=== PATIENT | female | born 1950 | race Caucasian/White ===

== ENCOUNTER → 2022-04-19 15:35 | Outpatient (CLI) | payer MEDICARE, OTHER, SELFPAY ==
[2022-04-19 20:48] LABS: COVID19 -Nasal RAPID Negative (Negative)
== END ==
PROVIDERS: Family Provider Family Medicine; PCP Family Medicine; Visit Provider Surgery
DX: Z01.812 Encounter for preprocedural laboratory examination (principal); Z20.822 Contact with and (suspected) exposure to COVID-19
CPT/HCPCS: 87635

== ENCOUNTER → 2022-04-19 15:38 | Outpatient (CLI) | payer MEDICARE, OTHER, SELFPAY ==
--- NOTE | 2022-04-19 15:40 | DI.MRI.S_ITS ---
PROCEDURE: MR HEAD/BRAIN WO/W CON INDICATIONS: staging small cell lung cancer TECHNIQUE: Noncontrast axial T1 spin echo, axial T2 fast spin echo, sagittal and axial FLAIR, coronal T2 fast spin echo, axial gradient echo, axial diffusion and ADC through the brain. After the administration of contrast, axial and coronal T1 spin echo with fat saturation through the brain. COMPARISON: None. FINDINGS: Image quality: Excellent. CSF spaces: Basal cisterns are patent. No extra-axial fluid collections. Ventricles are normal in size and shape. Brain: No midline shift. No intracranial bleeds or masses. No abnormal intracranial enhancement. There is cerebral volume loss for age. There is periventricular white matter chronic small vessel ischemic change. The brainstem appears normal. Diffusion-weighted images demonstrate no acute ischemic insults. No chronic ischemic insults. Normal intravascular flow voids are present. Skull and face: Calvarial marrow is normal in signal. Orbits appear normal. Sinuses: Sinuses and mastoids appear clear. IMPRESSION: No evidence of metastatic disease. No acute intracranial disease process. Mild, diffuse cerebral volume loss. Mild periventricular and subcortical white matter chronic microvascular ischemic change. Dictated by: Yamilet Fagan MD, PhD on 04/19/2022 at 16:37 Approved by: Yamilet Fagan MD, PhD on 04/19/2022 at 16:39
== END ==
PROVIDERS: Family Provider Family Medicine; PCP Nurse Practitioner Family; Referring Provider Internal Medicine Medical Oncology; Visit Provider Internal Medicine Medical Oncology
DX: C34.11 Malignant neoplasm of upper lobe, right bronchus or lung (principal); Z01.812 Encounter for preprocedural laboratory examination; Z20.822 Contact with and (suspected) exposure to COVID-19
CPT/HCPCS: 70553; 87635; C9803; A9579

== ENCOUNTER 2022-04-20 11:48 | Day surgery (SDC) | payer MEDICARE, OTHER, SELFPAY ==
[2022-04-20] VITALS (9 sets, daily range): BP systolic 119–140; BP diastolic 62–76; PULSE 68–80; RESP 12–18; TEMP 36.2–36.6; O2SAT 90–97; BMI 33.5
--- NOTE | 2022-04-20 12:08 | PM.HP.1 ---
History of Present Illness History of Present Illness Date Patient Seen: 04/20/22 Chief complaint: Port A Cath Placement Narrative: 71F with right lung cancer here for port a cath placement. No previous indwelling venous catheter. Currently feeling well. Patient History Medical History Arthritis Elevated coronary artery calcium score HTN (hypertension) Malaise and fatigue Serum calcium elevated Shortness of breath Sleep apnea Smoker Family & Social History Tobacco & Substance use: Smoking Status Current every day smoker Smoking packs per day 0.5 Meds Home Medications and Allergies Home Medications Medication Instructions Recorded Confirmed Type acetaminophen 650 mg 650 mg PO Q12H 04/13/22 04/20/22 History tablet,extended release amlodipine 5 mg tablet 5 mg PO DAILY 04/13/22 04/20/22 History ascorbic acid (vitamin C) 500 mg 500 mg PO DAILY 04/13/22 04/20/22 History tablet (Vitamin C) ibuprofen 300 mg tablet 600 mg PO QID 04/13/22 04/20/22 History levothyroxine 100 mcg tablet 100 mcg PO DAILY 04/13/22 04/20/22 History Allergies Allergy/AdvReac Type Severity Reaction Status Date / Time No Known Drug Allergies Allergy Verified 04/20/22 12:13 Exam Narrative Exam Narrative: Gen-Adult woman alert and oriented Chest-Non labored resp Ext-WWP Assessment & Plan Assessment & Plan narrative: 71F w lung cancer here for port a cath placement. Overview of operation discussed. Operative risks including bleeding, infection, mechanical device failure, pneumothorax. Questions answered she is in agreement with this plan. Time Spent With Patient Critical Care time: I spent a total of [] minutes of critical care time on this patient's care today; this time is exclusive of procedural time.
[2022-04-20] MEDS: LACTATED RINGERS 1,000 ML 100 ML IV (12:31)
[2022-04-20] MEDS: CEFAZOLIN 2 GM/20 ML SYRINGE IV (12:53)
--- NOTE | 2022-04-20 12:57 | SUR.OPER ---
Supine on padded OR bed, head on pillow, arms padded and tucked at sides, legs uncrossed, safety belt at thigh, tape over blanket over lower legs as directed by surgeon.
[2022-04-20] MEDS: BUPIVACAINE 0.25% (PF) VIAL 30 ML INJ (13:01)
[2022-04-20] MEDS: HEPARIN 5,000 UNIT, SODIUM CHLORIDE 0.9% 50 ML IV (13:02)
--- NOTE | 2022-04-20 13:30 | DI.RAD.S_ITS ---
PROCEDURE: XR CHEST 1V INDICATIONS: PORT A CATH INSERTION TECHNIQUE: One view of the chest was acquired. COMPARISON: Outside Film, CT, CT CHEST WITH CONTRAST, 02/05/2022, 13:25. FINDINGS: Surgical changes and devices: Port-A-Cath tip is in the distal right IJ vein near the origin of the SVC Lungs and pleura: Lungs are clear. No pleural effusions or pneumothorax. Mediastinum: Mediastinal contours appear normal. Heart size is normal. Bones and chest wall: No suspicious bony lesions. Overlying soft tissues appear unremarkable. IMPRESSION: Right Port-A-Cath tip is in the distal internal jugular vein near the origin of the SVC Approved by: Cristian Calderón M.D. on 04/20/2022 at 16:55
--- NOTE | 2022-04-20 13:41 | PM.OP.1 ---
Operative Date/Time/Diagnoses Date of procedure: 04/20/22 Time of procedure: 13:42 Pre-op diagnosis: Lung cancer Venous insufficiency Post-op diagnosis: same Procedure & Clinicians Procedure: Port-A-Cath placement Same procedure as scheduled: Yes Indications: Lung cancer venous insufficiency Surgeon: Ronni Dillon Click Yes if Unassisted: Yes Anesthesia Type: General Operative Notes Findings: Tip of the catheter within the SVC Specimen(s): none sent Estimated Blood Loss (mL): 10 Procedure in detail: Patient was brought to the operating room placed supine on table. Bilateral lower extremity compressive devices were applied. General anesthesia was induced and he was intubated with an LMA. She was then prepped and draped in usual sterile fashion. Time-out was performed ensure the correct patient procedure necessary equipment within the operating room. She received 2 g of Ancef prior to incision. Under ultrasound guidance the right internal jugular vein was accessed under direct visualization. The guidewire was then threaded through the needle. Its placement was then confirmed using fluoroscopy. The dilator was then placed over the guidewire. The catheter was then inserted through the sheath. Placement was again confirmed with fluoroscopy. A subcutaneous pocket was made in the right chest wall. The tunneler device was used to move the catheter from the neck to the chest pocket. The port was attached after it was primed with heparined saline. The port was tested to ensure that it flushed easily and had good blood return. The port was then secured to the underlying fascia using interupted 0 Prolene suture. Hemostasis was achieved. The wound was irrigated with sterile saline. The subcutaneous tissues were reapproximated with the 3 0 Vicryl and then skin closed with 4-0 Monocryl. The skin was sealed with Dermabond. Patient tolerated procedure well. The sponge and instrument count at the end operation was correct. Patient emerged from general anesthesia was extubated and taken to the postoperative care unit in stable condition Complications: none Post-operative Condition: stable Disposition: same day surgery
[2022-04-20] MEDS: OXYCODONE/ACETAMINOPHEN 5/325 TABLET 1 TAB PO ×2 (14:07→14:59)
--- NOTE | 2022-04-20 14:34 | SUR.PHASEII ---
waiting for wagon driver salesperson to arrive. Patient awake, not in pain at rest, tolerating PO well. No shortness of breath at this time. Used incentive spirometer in PACU, will send it home with the patient.
== END 2022-04-20 15:01 | disposition home or self-care (01) ==
PROVIDERS: Family Provider Family Medicine; PCP Nurse Practitioner Family; Referring Provider Surgery; Visit Provider Surgery
PROC: (CPT 36561; principal; 2022-04-20 13:00)
DX: C34.91 Malignant neoplasm of unspecified part of right bronchus or lung (principal); I10 Essential (primary) hypertension; E03.9 Hypothyroidism, unspecified; F17.210 Nicotine dependence, cigarettes, uncomplicated
CPT/HCPCS: 36561; 71045; 76000; 82962; C1788; J0690; J1100; J1644; J2704; J3010

== ENCOUNTER → 2022-08-26 12:57 | Outpatient (CLI) | payer MEDICARE, OTHER, SELFPAY ==
--- NOTE | 2022-08-26 | DI.RAD.S_ITS ---
PROCEDURE: XR DEXA AXIAL SKELETON INDICATIONS: Hypercalcemia/Age-related osteoporosis without cur COMPARISON: None. FINDINGS: This blank DEXA report has been sent in error by the PACS system. The correct and complete report will be forthcoming in 1-2 days. Thank you for your patience and understanding. Dictated by: Oneal Kramer M.D. on 09/01/2022 at 15:07 Approved by: Oneal Kramer M.D. on 09/01/2022 at 15:07
== END ==
PROVIDERS: Family Provider Family Medicine; PCP Nurse Practitioner Family; Referring Provider Student in an Organized Health Care Education/Training Program; Visit Provider Student in an Organized Health Care Education/Training Program
DX: E21.3 Hyperparathyroidism, unspecified (principal); Z85.118 Personal history of other malignant neoplasm of bronchus and lung; Z13.820 Encounter for screening for osteoporosis; Z78.0 Asymptomatic menopausal state; Z92.241 Personal history of systemic steroid therapy; Z90.710 Acquired absence of both cervix and uterus
CPT/HCPCS: 77080

== ENCOUNTER 2022-10-01 18:44 | Emergency (ER) | payer MEDICARE, OTHER, SELFPAY ==
[2022-10-01 19:09] VITALS: BP 139/78; PULSE 90; RESP 17; TEMP 36.6; O2SAT 99; BMI 31.1
--- NOTE | 2022-10-01 19:22 | DI.US.S_ITS ---
PROCEDURE: US PERIPH VENOUS UP EXTREM RT INDICATIONS: NECK PAIN; PORT TECHNIQUE: Real-time imaging, as well as color and pulse Doppler interrogation, was performed of the right upper extremity deep veins from the inferior neck to the antecubital fossa. COMPARISON: [facility], CR, XR CHEST 1V, 04/20/2022, 13:36. FINDINGS: There are nonocclusive filling defects along the course of the catheter in the right internal jugular catheter consistent with thrombus. The visualized portions of the subclavian vein, axillary, and brachial veins are free of intraluminal thrombus. Where physically possible, the veins are normally compressible. Color and pulse Doppler demonstrate normal intraluminal flow, with expected phasicity and pulsatility. Additional scanning of the cephalic and basilic veins of the superficial system demonstrate normal compressibility, without thrombus. IMPRESSION: 1. Nonocclusive thrombus demonstrated within the right internal jugular catheter along the course of the Port-A-Cath catheter. Dictated by: Stefan Coates M.D. on 10/01/2022 at 21:25 Approved by: Stefan Coates M.D. on 10/01/2022 at 21:30
[2022-10-01 20:04] LABS: Influenza A - CEPHEID Flu A NEGATIVE (NEGATIVE); Influenza B - CEPHEID Flu B NEGATIVE (NEGATIVE); Respiratory Syncytial Virus Negative (Negative)
[2022-10-01 20:05] LABS: COVID-19 CEPHEID 4-PLEX PCR Negative (Negative)
[2022-10-01 22:41] VITALS: BP 177/88; PULSE 88; RESP 20; O2SAT 93
[2022-10-02 01:10] VITALS: BP 164/89; PULSE 81; RESP 18; O2SAT 94
--- NOTE | 2022-10-02 01:43 | ED.RECABL ---
HPI - Recheck/Abnormal Lab/Rx General Chief Complaint: Recheck/Abnormal Lab/Rx Stated Complaint: incision site problem chem port, blood clots Time Seen by Provider: 10/02/22 01:43 Source: patient Mode of arrival: Ambulatory History of Present Illness HPI narrative: 72-year-old woman with a history of lung cancer no longer getting chemotherapy but still has a port in the right internal jugular. It is flushed with heparin monthly. She notes over the last 2 nights that it has been increasingly tender along her neck with tenderness when she is coughing or swallowing seems to bother her most in the evenings. She describes no fevers no worsening cough or dyspnea. She discuss this with her oncologist who recommended that she come to the emergency department for evaluation for DVT. Related Data Home Medications Medication Instructions Recorded Confirmed acetaminophen 650 mg 650 mg PO Q12H 04/13/22 08/24/22 tablet,extended release amlodipine 5 mg tablet 5 mg PO DAILY 04/13/22 08/24/22 ascorbic acid (vitamin C) 500 mg 500 mg PO DAILY 04/13/22 08/24/22 tablet (Vitamin C) ibuprofen 300 mg tablet 600 mg PO QID 04/13/22 08/24/22 levothyroxine 100 mcg tablet 100 mcg PO DAILY 04/13/22 08/24/22 gabapentin 100 mg capsule 100 mg PO BEDTIME 06/01/22 08/24/22 Previous Rx's Medication Instructions Recorded ondansetron 4 mg disintegrating 4 mg PO Q8H PRN Nausea And 05/03/22 tablet Vomiting #60 tabs lidocaine-prilocaine 2.5 %-2.5 % 1 applic topical USEASDIRECTD PRN 05/05/22 topical cream Pain At Injection Site #30 grams mouthwashes See Rx Instructions .Route 06/01/22 .COMPLEX PRN Mouth Irritation #480 mL oxycodone 5 mg tablet (Roxicodone) 5 mg PO Q8H PRN Pain, Severe #30 06/29/22 tabs oxycodone 5 mg tablet 5 mg PO Q8H PRN Pain, Severe #30 07/27/22 tabs oxycodone 5 mg capsule 5 mg PO Q8H PRN Pain (Scale Score 09/22/22 4-6) #30 caps eliglustat 84 mg capsule 84 mg PO DAILY #84 caps 10/02/22 methylprednisolone 4 mg tablets in 4 mg PO DAILY #21 ea 10/02/22 a dose pack (Medrol (Justus)) oxycodone-acetaminophen 5 mg-325 1 tab PO Q6H PRN pain #20 tabs 10/02/22 mg tablet Allergies Allergy/AdvReac Type Severity Reaction Status Date / Time No Known Drug Allergies Allergy Verified 10/01/22 19:13 Review of Systems Review of Systems Narrative: Remainder of review is unremarkable Patient History Medical History Arthritis Elevated coronary artery calcium score HTN (hypertension) Malaise and fatigue Serum calcium elevated Shortness of breath Sleep apnea Small cell lung cancer Smoker Surgical History H/O carpal tunnel repair History of bunionectomy History of endoscopy Social History household members: family and children Smoking Status: Current every day smoker alcohol intake: current Smoking Status: Current every day smoker alcohol intake frequency: 0-2 drinks per day Substance Use Type: does not use Exam Initial Vital Signs Initial Vital Signs: Vital Signs Temperature 98 F 10/01/22 19:09 Pulse Rate 90 10/01/22 19:09 Respiratory Rate 17 10/01/22 19:09 Blood Pressure 139/78 10/01/22 19:09 Pulse Oximetry 99 10/01/22 19:09 Oxygen Delivery Method 10/01/22 19:09 General: Chronically ill-appearing but in no acute distress. Able to give a complete and coherent history. Well-nourished well-developed HEENT: Moist mucous membranes, normal sclera with reactive pupils, Neck: Tender along the right side of her neck with palpable cord. No redness, no abscess. No specific tenderness over the port access site Respiratory: Speaking in full sentences Abdomen: Soft, nontender, Skin: Warm and dry, no rashes Neurologic: Grossly neurologically intact with no obvious asymmetries or abnormalities Extremities: No trauma, well perfused Psych: Cooperative, appropriate insight and affect Course Orders Ordered: ED Orders 10/01/22 19:15 Covid-19 + FLU A/B + RSV - PCR Stat 10/01/22 19:22 US periph venous up extrem rt Stat Discontinued Medications Apixaban (Apixaban 5 Mg Tablet) 10 mg PO NOW ONE Stop: 10/02/22 02:05 Apixaban (Apixaban 5 Mg Tablet) 10 mg PO NOW ONE Stop: 10/02/22 02:29 Dexamethasone (Dexamethasone 4 Mg Tablet) 8 mg PO NOW ONE Stop: 10/02/22 02:29 Oxycodone/Acetaminophen (Oxycodone/Acetaminophen 5/325 Tablet) 2 tab PO NOW ONE Stop: 10/02/22 02:29 Vital Signs Vital signs: Vital Signs - 8 hr 10/01/22 19:09 10/01/22 22:41 10/02/22 01:10 Temperature 98 F Pulse Rate 90 88 81 Respiratory Rate 17 20 18 Blood Pressure 139/78 177/88 H 164/89 H Pulse Oximetry 99 93 94 Oxygen Delivery Method Room Air Room Air Room Air MDM - Recheck/Abnormal Lab/Rx Lab Data Labs: Lab Results 10/01/22 Range/Units 19:15 SARS-CoV-2 (PCR) Negative (Negative) Influenza A (RT-PCR) Flu a negative (NEGATIVE) Influenza B (RT-PCR) Flu b negative (NEGATIVE) RSV (PCR) Negative (Negative) Imaging Data Ultrasound right neck: Radiologist's Impression: FINDINGS:? There are nonocclusive filling defects along the course of the catheter in the right internal jugular catheter consistent with thrombus.? The visualized portions of the subclavian vein, axillary, and brachial veins are free of intraluminal thrombus.? Where physically possible, the veins are normally compressible.? Color and pulse Doppler demonstrate normal intraluminal flow, with expected phasicity and pulsatility.? Additional scanning of the cephalic and basilic veins of the superficial system demonstrate normal compressibility, without thrombus.? ? IMPRESSION:? ? 1. Nonocclusive thrombus demonstrated within the right internal jugular catheter along the course of the Port-A-Cath catheter. ? ? Dictated by: Stefan Coates M.D. on 10/01/2022 at 21:25 ? ? MDM Narrative Medical decision making narrative: 72-year-old woman with nonocclusive thrombus documented along the same path. Care will be reviewed with Oncology for recommendations. Dr Uribe returned call. He recommends Eliquis 10 mg b.i.d. for a week. He will contact Dr. Stoddard will then continue prescription with 5 mg b.i.d. after that. Will also give her a Medrol Dosepak to help with inflammation around the partial occlusion to see if this helps with pain. She is also given a brief prescription of Percocet, again to help pain. All of these findings are reviewed with her. I told her to expect a call from the oncology office early next week to set up follow-up appointment and discuss further prescription for the Eliquis. At this time she is safe for discharge home Discharge Plan Departure Patient Disposition: Home Clinical Impression: Small cell lung cancer DVT (deep venous thrombosis) Qualifiers: DVT location: upper extremity Chronicity: acute Laterality: right Instructions: DI for Deep Vein Thrombosis Activity Restrictions/Additional Instructions: Thank you for coming in You do have blood clot around your catheter that is partially occluding your internal jugular vein I have spoken with . He is recommended starting Eliquis 10 mg twice a day and continuing this for a week. After that, will continue the prescription likely at 5 mg twice a day. I am giving you a brief prescription of steroid in the form of a Medrol Dosepak to help with inflammation and swelling at the site I am also giving you a short course of Percocet to help with pain as needed. This is a narcotic and will cause constipation. Please make sure you are using stool softeners with it. Please make sure your falling up with the Oncology Clinic next week. Perscriptions have been electonically transmitted to [facility] If you find that you are getting worse or develop any new symptoms, please feel free to return to the emergency department for further evaluation. Prescriptions: New oxycodone-acetaminophen 5-325 mg tablet 1 tab PO Q6H PRN (Reason: pain) Qty: 20 0RF eliglustat 84 mg capsule 84 mg PO DAILY Qty: 84 0RF methylprednisolone [Medrol (Justus)] 4 mg tablets,dose pack 4 mg PO DAILY Qty: 21 0RF No Action amlodipine 5 mg Tablet 5 mg PO DAILY levothyroxine 100 mcg Tablet 100 mcg PO DAILY acetaminophen 650 mg Tablet Extended Release 650 mg PO Q12H ascorbic acid (vitamin C) [Vitamin C] 500 mg Tablet 500 mg PO DAILY ibuprofen 300 mg Tablet 600 mg PO QID ondansetron 4 mg Tablet,Disintegrating 4 mg PO Q8H PRN (Reason: Nausea And Vomiting) Qty: 60 0RF lidocaine-prilocaine 2.5-2.5 % Cream 1 applic topical USEASDIRECTD PRN (Reason: Pain At Injection Site) Qty: 30 1RF Rx Instructions: Apply to skin over port 60-90 minutes hours prior to planned use of port.Cover the cream with a small piece if plastic wrap and leave in place untill port access mouthwashes Kit See Rx Instructions .ROUTE .COMPLEX PRN (Reason: Mouth Irritation) Qty: 480 1RF Rx Instructions: 160mL vicous lidocaine 2% 160mL mylanta 160mL diphenhydramine 12.5mg/5mL 30ml Sig: Swish, gargle, and spit one to two teaspoonfuls for 1 minute. Repeat every six hours as needed. May be swallowed if esophageal involvement. gabapentin 100 mg Capsule 100 mg PO BEDTIME oxycodone [Roxicodone] 5 mg Tablet 5 mg PO Q8H PRN (Reason: Pain, Severe) Qty: 30 0RF Rx Instructions: take one tablet every 8 hours as needed for breakthrough pain oxycodone 5 mg Tablet 5 mg PO Q8H PRN (Reason: Pain, Severe) Qty: 30 0RF Rx Instructions: take one tablet every 8 hours as needed for breakthrough pain oxycodone 5 mg Capsule 5 mg PO Q8H PRN (Reason: Pain (Scale Score 4-6)) Qty: 30 0RF Rx Instructions: take one tablet as needed every 8 hours for pain Referrals: Myah Ny ARNP [Primary Care Provider] -
[2022-10-02] MEDS: OXYCODONE/APAP 5/325 PREPACK 1 BOTTLE MISC (03:07)
[2022-10-02] MEDS: APIXABAN 5 MG TABLET 10 MG PO (03:07)
[2022-10-02] MEDS: OXYCODONE/ACETAMINOPHEN 5/325 TABLET 2 TAB PO (03:08)
[2022-10-02] MEDS: dexAMETHasone 4 MG TABLET 8 MG PO (03:08)
[2022-10-02 03:20] VITALS: BP 150/84; PULSE 81; O2SAT 95
== END 2022-10-02 03:20 | disposition home or self-care (01) ==
PROVIDERS: Emergency Provider Emergency Medicine; Family Provider Family Medicine; PCP Nurse Practitioner Family
DX: I82.621 Acute embolism and thrombosis of deep veins of right upper extremity (principal); C34.90 Malignant neoplasm of unspecified part of unspecified bronchus or lung; Z20.822 Contact with and (suspected) exposure to COVID-19; Z79.899 Other long term (current) drug therapy
CPT/HCPCS: 0241U; 93971; 99283

== ENCOUNTER → 2022-11-03 10:32 | Outpatient (CLI) | payer MEDICARE, OTHER, SELFPAY ==
--- NOTE | 2022-11-03 10:36 | DI.CT.S_ITS ---
PROCEDURE: CT CHEST ABD PEL W CON INDICATIONS: small cell lung cancer monitoring TECHNIQUE: After the administration of oral and intravenous contrast, axial sections acquired from the supraclavicular neck to the pubic symphysis. Coronal and sagittal reformats were performed. For radiation dose reduction, the following was used: automated exposure control, adjustment of mA and/or kV according to patient size. COMPARISON: [facility], CT, CT CHEST WITH CONTRAST, 05/25/2022, 14:48. FINDINGS: Image quality: Excellent. CHEST: Lower Neck: No enlarged lymph nodes. Thyroid: Unremarkable. Axillae: No enlarged lymph nodes. Chest Wall: Unremarkable. Lungs and Airways: Some of the airspace opacities in the upper lungs visualized on the comparison CT dated May 25, 2022 have resolved, and some persist. For example, a spiculated 9 mm nodule within the peripheral aspect of the right upper lung is unchanged (series 5/image 127). Similarly, a 1.2 cm ground-glass nodule in the anterior aspect of the right upper lung is also unchanged. No new suspicious lesions. No new acute airspace opacities. An 8 mm pulmonary nodule within the posterior left upper lobe now measures 6 mm in diameter (series 5/image 78). A 4 mm pulmonary nodule within the superior segment of the left lower lobe is unchanged (series 5/image 114). Pleura: No pneumothorax or pleural effusions. Heart: Heart size is normal. No pericardial effusion. Thoracic Vessels: The aorta and pulmonary arteries demonstrate normal size. Scattered atheromatous calcifications are present within the aortic arch. Mediastinum and Sharon: The previously visualized enhancing right hilar soft tissue mass has markedly decreased in size. The residual tissue measures approximately 0.8 x 1.6 cm in diameter and previously measured approximately 2.9 x 3.4 cm in diameter. No new hilar adenopathy. No new mediastinal adenopathy. Esophagus: No wall thickening. No hiatal hernia. ABDOMEN: Liver: Unremarkable. Gallbladder: Unremarkable. Biliary ducts: Unremarkable. Pancreas: Unremarkable. Spleen: Unremarkable. Adrenal Glands: Unremarkable. Kidneys and Ureters: Unremarkable. Stomach and Bowel: Stomach, small bowel loops, and colon are unremarkable. There are scattered sigmoid diverticula. No evidence for diverticulitis. The appendix is not visualized; however there is no discrete right lower quadrant fluid or fat stranding to suggest acute appendicitis. Peritoneum: No abnormal intraperitoneal fluid. No free air. Ventral Wall: No hernia. Abdominal Nodes: No retroperitoneal or mesenteric adenopathy by size criteria. Vessels: Aorta and inferior vena cava are normal in size. There are scattered atheromatous calcifications throughout the aorta and iliac arteries bilaterally. PELVIS: Pelvic Organs: Unremarkable. Bladder: Unremarkable. Pelvic Nodes: No enlarged lymph nodes. Miscellaneous: No inguinal hernias are seen. Bones: Unremarkable. IMPRESSION: 1. Marked decrease in the size of the right hilar mass when compared with the CT dated May 25, 2022 suggesting response to therapy. 2. Scattered pulmonary radiopacities as above. These findings most likely represent indolent infection given the resolution of some and the persistence of others over time. Pulmonary metastasis cannot be entirely excluded but is considered less likely. 2. No findings to suggest new subdiaphragmatic metastasis. Dictated by: Kaylynn Nelson M.D. on 11/03/2022 at 13:53 Approved by: Kaylynn Nelson M.D. on 11/03/2022 at 14:03
[2022-11-03 10:52] LABS: Add Manual Diff / Slide Review NO; Basophils Absolute Auto 0 /uL (0-100); Basophils Percent Auto 0.8 % (0-2); Eosinophils Absolute Auto 100 /uL (0-450); Eosinophils Percent Auto 2.5 % (2-4); Hematocrit 42.2 % (36-46); Hemoglobin 13.9 g/dL (12.0-16.0); Lymphocytes Absolute Auto 800 /uL (1100-4500); Lymphocytes Percent Auto 14.2 % (25-40); Mean Corpuscular HGB Conc 32.9 % (30-36); Mean Corpuscular Hemoglobin 31.9 PG (26-34); Mean Corpuscular Volume 96.9 fL (80-100); Monocytes Absolute Auto 600 /uL (0-900); Monocytes Percent Auto 11.3 % (3-14); Neutrophils Absolute Auto 3800 /uL (1500-7000); Neutrophils Percent Auto 71.2 % (50-75); Platelet Count 250 X10^3/uL (150-400); Red Blood Cell Count 4.36 X10^6/uL (4.0-5.2); Red Cell Distribution Width 14.5 % (11.6-14.8); White Blood Cell Count 5.4 X10^3/uL (4.5-11.0)
[2022-11-03 11:07] LABS: Alanine Aminotransferase 17 IU/L (<35); Albumin 4.2 g/dL (3.5-5.0); Albumin Globulin Ratio 1.3 (1.0-2.8); Alkaline Phosphatase 64 U/L (38-126); Aspartate Aminotransferase 17 IU/L (14-36); BUN Creatinine Ratio 18.5 (6-22); Bilirubin Total 0.3 mg/dL (0.2-1.3); Blood Urea Nitrogen 12 mg/dL (7-17); Calcium 10.6 mg/dL (8.4-10.2); Carbon Dioxide 30 mmol/L (22-32); Chloride 103 mmol/L (98-107); Estimated Glomerular Filt Rate > 60 mL/min (>60); Globulin 3.2 g/dL (1.7-4.1); Glucose 97 mg/dL (80-110); HEMOLYSIS < 15 (0-50); Potassium 3.9 mmol/L (3.4-5.1); Sodium 140 mmol/L (137-145); Total Protein 7.4 g/dL (6.3-8.2)
== END ==
PROVIDERS: Family Provider Family Medicine; PCP Nurse Practitioner Family; Referring Provider Internal Medicine Medical Oncology; Visit Provider Internal Medicine Medical Oncology
DX: C34.11 Malignant neoplasm of upper lobe, right bronchus or lung (principal); K57.30 Diverticulosis of large intestine without perforation or abscess without bleeding; R91.1 Solitary pulmonary nodule
CPT/HCPCS: 36415; 71260; 74177; 80053; 85025; Q9967

== ENCOUNTER → 2022-11-25 10:50 | Outpatient (CLI) | payer MEDICARE, OTHER, SELFPAY ==
--- NOTE | 2022-11-25 | DI.MRI.S_ITS ---
PROCEDURE: MR LUMBAR SPINE WO CON INDICATIONS: Radiculopathy, lumbar region TECHNIQUE: Noncontrast sagittal T1 spin echo and T2 fast echo, sagittal STIR, and T2 fast spin echo through the lumbar spine. In cases with scoliosis, additional coronal T2 fast spin echo may be performed. COMPARISON: None. FINDINGS: Image quality: Excellent. Alignment and Curvature: Mild degenerative grade 1 anterior spondylolisthesis L3-4 and L4-5 Bone Marrow: Marrow is of normal overall signal. No acute vertebral body compression fractures. Spinal Cord: Conus medullaris terminates at the L1 level. Visualized cord demonstrates normal signal and size. Paraspinous Soft Tissues: No paravertebral masses. T12-L1: Normal appearance. L1-L2: Normal appearance. L2-L3: Disc height is maintained. Circumferential disc bulge and hypertrophic facet joints results in [id number] central stenosis. No foraminal stenosis L3-L4: Disc space narrowing and circumferential disc bulge with hypertrophic facet joints and ligamentum flavum laxity results in severe central stenosis. Moderate bilateral foraminal stenosis L4-L5: Disc space narrowing and circumferential disc bulge with hypertrophic facet joints results in severe central stenosis. Moderate bilateral foraminal stenosis L5-S1: Disc height is maintained. Hypertrophic facet joints present. No central or foraminal stenosis. IMPRESSION: Multilevel degenerative disc disease and arthropathy results in varying degrees of central and foraminal stenosis including severe central stenosis L3-4 and L4-5 Approved by: Cristian Calderón M.D. on 11/25/2022 at 15:05
== END ==
PROVIDERS: Family Provider Family Medicine; PCP Nurse Practitioner Family; Referring Provider Nurse Practitioner Family; Visit Provider Nurse Practitioner Family
DX: M51.16 Intervertebral disc disorders with radiculopathy, lumbar region (principal); M47.26 Other spondylosis with radiculopathy, lumbar region; M48.061 Spinal stenosis, lumbar region without neurogenic claudication; M79.2 Neuralgia and neuritis, unspecified; M43.10 Spondylolisthesis, site unspecified; M17.0 Bilateral primary osteoarthritis of knee
CPT/HCPCS: 72148

== ENCOUNTER → 2022-12-20 12:40 | Outpatient (CLI) | payer MEDICARE, OTHER, SELFPAY ==
--- NOTE | 2022-12-20 12:42 | DI.RAD.S_ITS ---
PROCEDURE: XR LUMBAR SPINE MIN 4V INDICATIONS: LOW BACK PAIN TECHNIQUE: 5 views of the lumbar spine were acquired, including bilateral oblique views. COMPARISON: [facility], MR, MR LUMBAR SPINE WO CON, 11/25/2022, 10:53. FINDINGS: Bones: 5 nonrib-bearing vertebrae are present. Lower lumbar facet arthropathy. 9 mm anterolisthesis of L4 on L5. 3 mm anterolisthesis of L3 on L4. No vertebral body compression fractures. No suspicious bony lesions. Oblique images demonstrate no evidence of pars defects. Soft tissues: Overlying bowel gas pattern is normal. No suspicious soft tissue calcifications. Oblique images: No pars defects. IMPRESSION: Multilevel posterior facet arthropathy, anterolisthesis of L3 on L4 and L4 on L5. No pars defects. Dictated by: Ladarius Valdovinos M.D. on 12/20/2022 at 19:03 Approved by: Ladarius Valdovinos M.D. on 12/20/2022 at 19:05
--- NOTE | 2022-12-20 12:42 | DI.RAD.S_ITS ---
PROCEDURE: XR KNEE RT 3V INDICATIONS: KNEE PAIN TECHNIQUE: 3 views of the knee were acquired. COMPARISON: None. FINDINGS: Bones: No fractures or dislocations. No suspicious bony lesions. Knee arthroplasty is present. Hardware is intact without evidence of hardware fracture or periprosthetic lucency to suggest loosening. Soft tissues: No joint effusion. No suspicious soft tissue calcifications. IMPRESSION: Knee arthroplasty as above. Dictated by: Jenni Jaeger M.D. on 12/20/2022 at 21:11 Approved by: Jenni Jaeger M.D. on 12/20/2022 at 21:11
--- NOTE | 2022-12-20 12:42 | DI.RAD.S_ITS ---
PROCEDURE: XR KNEE LT 3V INDICATIONS: KNEE PAIN TECHNIQUE: 3 views of the knee were acquired. COMPARISON: [facility], CR, XR KNEE RT 3V, 12/20/2022, 12:49. FINDINGS: Bones: No fractures or dislocations. No suspicious bony lesions. Left knee arthroplasty is present. Hardware is intact without evidence of hardware fracture or periprosthetic lucency. Soft tissues: Mild joint effusion. No suspicious soft tissue calcifications. IMPRESSION: Left knee arthroplasty as above. Dictated by: Jenni Jaeger M.D. on 12/20/2022 at 21:10 Approved by: Jenni Jaeger M.D. on 12/20/2022 at 21:10
== END ==
PROVIDERS: Family Provider Family Medicine; PCP Nurse Practitioner Family; Referring Provider Anesthesiology; Visit Provider Anesthesiology
DX: M47.26 Other spondylosis with radiculopathy, lumbar region (principal); M43.16 Spondylolisthesis, lumbar region; M25.462 Effusion, left knee; M25.561 Pain in right knee; M25.562 Pain in left knee; M79.601 Pain in right arm; M79.602 Pain in left arm; R20.2 Paresthesia of skin; G89.29 Other chronic pain; Z96.653 Presence of artificial knee joint, bilateral
CPT/HCPCS: 72110; 73562; 99214

== ENCOUNTER → 2023-01-19 14:35 | Outpatient (CLI) | payer MEDICARE, OTHER, SELFPAY ==
--- NOTE | 2023-01-19 14:37 | DI.RAD.S_ITS ---
PROCEDURE: XR CERVICAL SPINE 4V OR 5V INDICATIONS: NECK PAIN TECHNIQUE: 5 views of the cervical spine acquired. COMPARISON: None. FINDINGS: Degenerative straightening of the usual cervical lordosis. 2 mm anterolisthesis of C3 on C4. 4 mm anterolisthesis of C4 on C5. Vertebral body heights maintained. Oblique views demonstrate moderate to severe diffuse neural foraminal narrowing from C3-C4 through C6-C7 bilaterally. IMPRESSION: Moderate to severe cervical spine degenerative changes. MRI recommended. Dictated by: Oneal Kramer M.D. on 01/19/2023 at 16:37 Approved by: Oneal Kramer M.D. on 01/19/2023 at 16:37
== END ==
PROVIDERS: Family Provider Family Medicine; PCP Nurse Practitioner Family; Referring Provider Anesthesiology; Visit Provider Anesthesiology
DX: M47.812 Spondylosis without myelopathy or radiculopathy, cervical region (principal); M47.816 Spondylosis without myelopathy or radiculopathy, lumbar region; M43.16 Spondylolisthesis, lumbar region; M54.2 Cervicalgia; M25.561 Pain in right knee; M25.562 Pain in left knee; G89.29 Other chronic pain
CPT/HCPCS: 72050; 99214

== ENCOUNTER → 2023-01-23 12:12 | Outpatient (CLI) | payer MEDICARE, OTHER, SELFPAY ==
--- NOTE | 2023-01-23 12:13 | DI.MRI.S_ITS ---
PROCEDURE: MR CERVICAL SPINE WO CON INDICATIONS: Cervical radiculopathy TECHNIQUE: Noncontrast sagittal T1 spin echo and T2 fast spin echo, sagittal STIR, foraminal oblique sagittal T2 fast spin echo, and axial gradient echo or T2 fast spin echo through the cervical spine. COMPARISON: None. FINDINGS: Image quality: Image degraded by moderate patient motion artifact. Alignment and Curvature: There is straightening of cervical lordosis with mild retrolisthesis of C5 on C6. Bone Marrow: Marrow demonstrates normal overall signal. Spinal Cord: Visualized spinal cord has normal size and signal. No cerebellar tonsillar herniation. Paraspinous Soft Tissues: No paravertebral masses. Prevertebral soft tissues are normal in thickness. C2-C3: Moderate bilateral uncovertebral osteoarthrosis. Bilateral facet arthropathy. No significant neural foraminal or spinal canal stenosis. C3-C4: Moderate bilateral uncovertebral osteoarthrosis and bilateral facet arthropathy. There is a broad-based posterior disc osteophyte complex. This causes mild effacement anterior thecal sac. No significant spinal canal stenosis. Moderate bilateral neural foraminal stenosis. C4-C5: Moderate bilateral uncovertebral osteoarthrosis and small broad-based posterior disc osteophyte complex. Minimal spinal canal stenosis. No cord signal abnormalities. Moderate bilateral neural foraminal stenosis. C5-C6: Degenerative endplate changes with mild intervertebral disc space loss. Prominent endplate osteophytes. Moderate bilateral uncovertebral osteoarthrosis and prominent posterior disc osteophyte complex. Findings results in moderate spinal canal stenosis and moderate-severe bilateral neural foraminal stenosis. No cord signal abnormality seen. There is also mild retrolisthesis of C5 on C6. C6-C7: Moderate degenerative endplate changes with disc space loss. Prominent endplate osteophytes. Moderate posterior disc osteophyte complex and bilateral uncovertebral osteoarthrosis as well as bilateral facet arthropathy. Findings result in mild-moderate spinal canal stenosis without associated cord signal abnormalities. Moderate-severe bilateral neural foraminal stenosis. C7-T1: Normal appearance. IMPRESSION: Moderate multilevel, multifactorial cervical spondylosis as detailed above by vertebral body level. Findings are most severe at C5-6. Dictated by: Teofilo Hutchinson M.D. on 01/24/2023 at 13:02 Approved by: Teofilo Hutchinson M.D. on 01/24/2023 at 13:10
== END ==
PROVIDERS: Family Provider Family Medicine; PCP Nurse Practitioner Family; Referring Provider Anesthesiology; Visit Provider Anesthesiology
DX: M47.22 Other spondylosis with radiculopathy, cervical region
CPT/HCPCS: 72141

== ENCOUNTER 2023-02-03 13:31 | Outpatient (CLI) | payer MEDICARE, OTHER, SELFPAY ==
--- NOTE | 2023-02-03 13:33 | DI.RAD.S_ITS ---
PROCEDURE: PAIN L/S FACET INJ/BLK 1ST ASA COMPARISON: [facility], CR, XR LUMBAR SPINE MIN 4V, 12/20/2022, 12:49. INDICATIONS: SPONDYLOSIS FINDINGS: Fluoroscopic spot filming was performed to verify placement of spinal needles on both sides at the L4, L5, and S1 levels, as labeled on the films. Appropriate location of the needle tips was confirmed by injection of iodinated contrast. IMPRESSION: Intraprocedural examination demonstrating appropriate positions of the needles. Dictated by: Taz Aranda M.D. on 02/03/2023 at 14:01 Approved by: Taz Aranda M.D. on 02/03/2023 at 14:01
[2023-02-03 13:35] VITALS: BP 132/71; PULSE 81; RESP 16; TEMP 36.2; O2SAT 96
[2023-02-03 14:00] VITALS: BP 118/74; PULSE 71; RESP 16; O2SAT 94
[2023-02-03 14:05] VITALS: BP 123/78; PULSE 74; RESP 16; O2SAT 93
[2023-02-03] MEDS: IOPAMIDOL 15 ML VIAL 3 ML INJ (14:06)
[2023-02-03] MEDS: BUPIVACAINE 0.5% (PF) 30 ML VIAL 5 ML INJ (14:07)
[2023-02-03 14:10] VITALS: BP 128/81; PULSE 72; RESP 16; O2SAT 94
[2023-02-03 14:15] VITALS: BP 123/73; PULSE 74; RESP 16; O2SAT 93
[2023-02-03 14:25] VITALS: BP 122/86; PULSE 73; RESP 20; O2SAT 94
--- NOTE | 2023-02-03 16:45 | P.PCN_ITS ---
Date/Time/Diagnoses Date of procedure: 02/03/23 Time of procedure: 14:00 Procedure Notes Physician: Chidi Mejia Total Fluoroscopy time (seconds): 18 Total sedation minutes: 0 Procedure in detail & Post-procedure care: Bilateral L3, 4, 5 Lumbar Medial Branch Blocks Indications: Kal is referred by Dr. Ny for treatment of lumbar spondylosis with low back pain. Preoperative diagnosis: Bilateral lumbar spondylosis Postoperative diagnosis: Same Pre-procedure History: Patient demonstrates today moderate to severe non- radicular back pain without neurologic deficit aggravated by hyperextension yes Back pain greater than leg pain? yes Patient today has tenderness over the suspected joint(s) yes History of post-traumatic injury? no Hypertrophic arthropathy yes Back pain associated with suspected motion segment instability, hypermobility or pseudoarthrosis no Pre-testing pain score (VAS): 6/10 Focused Examination: Ax3 Mood and affect are normal Vital Signs: VSS Consent: Following review of allergies and potential side effects/complications, including, but not necessarily limited to, infection, allergic reaction, local tissue breakdown, stroke, temporary or permanent nerve injury, paralysis, and possible , the patient indicated that they understood and agreed to proceed.? An informed consent document was signed by the patient, witnessed by a nurse and placed in the patient's chart.? Additionally, other treatment options including medications and physical therapy were reviewed with the patient. All questions were answered. Site was then marked. Anesthesia: Local Position: Prone Monitoring: NIBP, Pulse oximetry, 3 lead EKG Needle used: 22G 3.5 inch spinal needle Contrast: Isovue 300M Injectate: 0.5% bupivacaine 1 mL per site Procedure: The patient was brought into the procedure room and positioned into the prone position. Skin was prepped with a Chloraprep solution, allowed to air dry, and then draped in sterile fashion.? The right L4-5 and L5-S1 facet joint were visually identified with fluoroscopy. Lidocaine 1% was used to anesthetize the skin over each target destination with a 25ga needle. A 22 ga, 3.5 inch spinal needle was advanced to the location of the medial branch at the junction of the superior articular process and the transverse process using intermittent fluoroscopy in the AP view. Isovue 300M contrast 0.2ml was injected at each level outlining the medial borders for each level and the base of the SAP of the sacrum in the AP and lateral views. There was no evidence of vascular or intrathecal uptake. The above injectate was slowly injected at each target destination. The left L4-5 and L5-S1 facet joints were visually identified with fluoroscopy. Lidocaine 1% was used to anesthetize the skin over each target destination with a 25ga needle. A 22 ga, 3.5 inch spinal needle was advanced to the location of the medial branch at the junction of the superior articular process and the transverse process using intermittent fluoroscopy in the AP view. Isovue 300M contrast 0.2ml was injected at each level outlining the medial borders for each level and the base of the SAP of the sacrum in the AP and lateral views. There was no evidence of vascular or intrathecal uptake. The above injectate was slowly injected at each target destination. At the end of the procedure the needles were withdrawn and Band-Aids were applied for a dressing. Post Procedure: Patient was taken to the recovery and monitored. The patient was provided a Pain Log to continue to record the patient's response to the target- specific procedure prior to the patient's follow-up visit with the referring physician. Patient was stable upon discharge. Detailed post procedure instructions were provided. Patient was asked to call in the event of worsening pain, fever, weakness, numbness or bladder or bowel incontinence. Postoperatively, today patient demonstrates the following changes with hyperextension and with tenderness over the suspected joint(s). Provacative testing using the Leal's facet loading test Right side Left side Directly before the block ?VAS (0-10) = 6/10 VAS (0-10) = 6/10 5 minutes after the block VAS (0-10) = 2/10 VAS (0-10) = 2/10 Percentage relief obtained with this diagnostic block 67 % 67 % Any improved physical functioning directly after the blocks? Increased range of motion Based on the medial branches blocked today, if the patient meets insurance criteria for radiofrequency, the treatment should result in the denervation of the bilateral L4-5 and L5-S1 facet joint nerves. We would expect to denervate a total of 4 facets during the radiofrequency ablation.
== END 2023-02-03 14:37 | disposition home or self-care (01) ==
LOC: RAD 13:33
PROVIDERS: Family Provider Family Medicine; PCP Nurse Practitioner Family; Referring Provider Anesthesiology; Visit Provider Anesthesiology
DX: M47.816 Spondylosis without myelopathy or radiculopathy, lumbar region (principal); M47.817 Spondylosis without myelopathy or radiculopathy, lumbosacral region
CPT/HCPCS: 64493; 64494

== ENCOUNTER 2023-03-03 13:32 | Outpatient (CLI) | payer MEDICARE, OTHER, SELFPAY ==
--- NOTE | 2023-03-03 13:34 | DI.RAD.S_ITS ---
PROCEDURE: PAIN L/S FACET INJ/BLK 1ST ASA COMPARISON: [facility], MR, MR LUMBAR SPINE WO CON, 11/25/2022, 10:53. [facility], CR, XR LUMBAR SPINE MIN 4V, 12/20/2022, 12:49. INDICATIONS: SPONDYLOSIS FINDINGS: 6 intraoperative fluoroscopy images demonstrate needle placement at L3, L4 and L5 bilaterally. IMPRESSION: Fluoroscopy for pain management. Dictated by: Robert Frey M.D. on 03/03/2023 at 16:30 Approved by: Robert Frey M.D. on 03/03/2023 at 16:31
[2023-03-03 13:50] VITALS: BP 121/70; PULSE 72; RESP 18; TEMP 36.6; O2SAT 98
[2023-03-03 14:16] VITALS: BP 131/80; PULSE 71; RESP 19; O2SAT 94
[2023-03-03] MEDS: LIDOCAINE 2% INJ SDV 5ML 5 ML INJ (14:16)
[2023-03-03] MEDS: IOPAMIDOL 15 ML VIAL 3 ML INJ (14:17)
[2023-03-03 14:21] VITALS: BP 148/92; PULSE 77; RESP 23; O2SAT 92
[2023-03-03 14:40] VITALS: BP 162/73; PULSE 79; RESP 18; O2SAT 98
--- NOTE | 2023-03-03 16:51 | P.PCN_ITS ---
Date/Time/Diagnoses Date of procedure: 03/03/23 Time of procedure: 14:00 Procedure Notes Physician: Chidi Mejia Total Fluoroscopy time (seconds): 13 Total sedation minutes: 0 Procedure in detail & Post-procedure care: Bilateral L3, 4, 5 Lumbar Medial Branch Blocks Indications: Kal is presenting for treatment of lumbar spondylosis with low back pain. Preoperative diagnosis: Bilateral lumbar spondylosis Postoperative diagnosis: Same Pre-procedure History: Patient demonstrates today moderate to severe non- radicular back pain without neurologic deficit aggravated by hyperextension yes Back pain greater than leg pain? yes Patient today has tenderness over the suspected joint(s) yes History of post-traumatic injury? F no Hypertrophic arthropathy yes Back pain associated with suspected motion segment instability, hypermobility or pseudoarthrosis no Pre-testing pain score (VAS): 6/10 Focused Examination: Ax3 Mood and affect are normal Vital Signs: VSS ASA: 2 Consent: Following review of allergies and potential side effects/complications, including, but not necessarily limited to, infection, allergic reaction, local tissue breakdown, stroke, temporary or permanent nerve injury, paralysis, and possible , the patient indicated that they understood and agreed to proceed.? An informed consent document was signed by the patient, witnessed by a nurse and placed in the patient's chart.? Additionally, other treatment options including medications and physical therapy were reviewed with the patient. All questions were answered. Site was then marked. Anesthesia: Local Position: Prone Monitoring: NIBP, Pulse oximetry, 3 lead EKG Needle used: 25G 3.5 inch spinal needle Contrast: Isovue 300M Injectate: 2% Lidocaine 1 mL per site Procedure: The patient was brought into the procedure room and positioned into the prone position. Skin was prepped with a Chloraprep solution, allowed to air dry, and then draped in sterile fashion.? The right L4-5 and L5-S1 facet joints were visually identified with fluoroscopy. Lidocaine 1% was used to anesthetize the skin over each target destination with a 25ga needle. A 25 ga, 3.5 inch spinal needle was advanced to the location of the medial branch at the junction of the superior articular process and the transverse process at L3, 4, 5 using intermittent fluoroscopy in the AP view. Isovue 300M contrast 0.2ml was injected at each level outlining the medial borders for each level and the base of the SAP of the sacrum in the AP and lateral views. There was no evidence of vascular or intrathecal uptake. The above injectate was slowly injected at each target destination. The left L4-5 and L5-S1 facet joints were visually identified with fluoroscopy. Lidocaine 1% was used to anesthetize the skin over each target destination with a 25ga needle. A 22 ga, 3.5 inch spinal needle was advanced to the location of the medial branch at the junction of the superior articular process and the transverse process at L3, 4, 5 using intermittent fluoroscopy in the AP view. Isovue 300M contrast 0.2ml was injected at each level outlining the medial borders for each level and the base of the SAP of the sacrum in the AP and lateral views. There was no evidence of vascular or intrathecal uptake. The above injectate was slowly injected at each target destination. At the end of the procedure the needles were withdrawn and Band-Aids were applied for a dressing. At the end of the procedure the needles were withdrawn and Band-Aids were applied for a dressing. Post Procedure: Patient was taken to the recovery and monitored. The patient was provided a Pain Log to continue to record the patient's response to the target- specific procedure prior to the patient's follow-up visit with the referring physician. Patient was stable upon discharge. Detailed post procedure instructions were provided. Patient was asked to call in the event of worsening pain, fever, weakness, numbness or bladder or bowel incontinence. Postoperatively, today patient demonstrates the following changes with hyperextension and with tenderness over the suspected joint(s). Provacative testing using the Leal's facet loading test Right side Left side Directly before the block ?VAS (0-10) = 6/10 VAS (0-10) = 6/10 5 minutes after the block VAS (0-10) = 1/10 VAS (0-10) = 1/10 Percentage relief obtained with this diagnostic block 83 % 83 % Any improved physical functioning directly after the blocks? Range of motion Based on the medial branches blocked today, if the patient meets insurance crite vidhi for radiofrequency, the treatment should result in the denervation of the bilateral L4-5 and L5-S1 facet joint nerves. We would expect to denervate a total of 4 facets during the radiofrequency ablation.
== END 2023-03-03 14:40 | disposition home or self-care (01) ==
PROVIDERS: Family Provider Family Medicine; PCP Nurse Practitioner Family; Referring Provider Anesthesiology; Visit Provider Anesthesiology
DX: M47.816 Spondylosis without myelopathy or radiculopathy, lumbar region (principal)
CPT/HCPCS: 64493; 64494

== ENCOUNTER 2023-03-17 14:32 | Outpatient (CLI) | payer MEDICARE, OTHER, SELFPAY ==
[2023-03-17] VITALS (11 sets, daily range): BP systolic 122–148; BP diastolic 71–88; PULSE 67–79; RESP 17–22; TEMP 36.3; O2SAT 94–98
--- NOTE | 2023-03-17 14:36 | DI.RAD.S_ITS ---
PROCEDURE: PAIN L/S MED/LAT N RFA BILAT INDICATIONS: SPONDYLOSIS COMPARISON: [facility], CR, XR LUMBAR SPINE MIN 4V, 12/20/2022, 12:49. FINDINGS: Fluoroscopic spot filming was performed to verify placement of spinal needles at the L3, L4 and L5 level(s), as labeled on the films. Appropriate location(s) of the needle tip(s) was confirmed by injection of iodinated contrast. IMPRESSION: Fluoroscopy for pain management Dictated by: Robert Frey M.D. on 03/17/2023 at 16:55 Approved by: Robert Frey M.D. on 03/17/2023 at 16:55
[2023-03-17] MEDS: MIDAZOLAM 2 MG/2 ML VIAL IV (15:12)
[2023-03-17] MEDS: BUPIVACAINE 0.5% (PF) 30 ML VIAL 5 ML INJ (15:30)
[2023-03-17] MEDS: DEXAMETHASONE 10 MG/ML VIAL 20 MG INJ (15:31)
[2023-03-17] MEDS: LIDOCAINE 2% INJ MDV 20ML 20 ML INJ (15:31)
--- NOTE | 2023-03-17 16:29 | P.PCN_ITS ---
Date/Time/Diagnoses Date of procedure: 03/17/23 Time of procedure: 15:00 Procedure Notes Physician: Chidi Mejia Total Fluoroscopy time (seconds): 30 Total sedation minutes: 34 Procedure in detail & Post-procedure care: Bilateral L3, 4, 5 Lumbar Medial Branch Radio Frequency Ablation Indications: Kal presents for treatment of lumbar spondylosis with low back pain. Preoperative diagnosis: Bilateral lumbar spondylosis Postoperative diagnosis: Same Pre-procedure History: Patient demonstrates today moderate to severe non-radicular low back pain without neurologic deficit aggravated by hyperextension yes Back pain greater than leg pain? yes Patient today has tenderness over the suspected joint(s) yes History of post-traumatic injury? no Hypertrophic arthropathy yes Back pain associated with suspected motion segment instability, hypermobility or pseudoarthrosis no Focused Examination: Ax3 Mood and affect are normal Vital Signs: VSS ASA: 2 Consent: Following review of allergies and potential side effects/complications, including, but not necessarily limited to, infection, allergic reaction, local tissue breakdown, stroke, temporary or permanent nerve injury, paralysis, and possible , the patient indicated that they understood and agreed to proceed.? An informed consent document was signed by the patient, witnessed by a nurse and placed in the patient's chart.? Additionally, other treatment options including medications and physical therapy were reviewed with the patient. All questions were answered. Site was then marked. Position: Prone Monitoring: NIBP, Pulse oximetry, 3 lead EKG Needle used: 18 guage, 100 mm, 10 mm active tip Anesthesia: Local with IV sedation. After review of previous anesthetic history and IV conscious sedation, the patient was deemed safe to proceed with today's procedure with IV conscious sedation. IV sedation was accomplished with Versed 2 mg administered by the RN after order by Dr. Mejia. Sedation was titrated to patient comfort during the course of the procedure. Patient remained responsive to all verbal commands. Procedure: The patient was brought into the procedure room and positioned into the prone position. Skin was prepped with a Chloraprep solution, allowed to air dry, and then draped in sterile fashion.? The right L4-5 and L5-S1 facet joints were visually identified with fluoroscopy. Lidocaine 1% was used to anesthetize the skin over each target destination with a 25ga needle. An 18 ga, 100 mm RFA needle with a 10 mm active tip was advanced to the location of the medial branch at the junction of the superior articular process and the transverse process at right L3, 4, 5 using intermittent fluoroscopy in the oblique view with caudal tilt. AP and lateral radiographs were taken to confirm proper needle placement. No paresthesias were noted. The stylet was removed and the radiofrequency probe was inserted through the cannula. Each level was individually tested. The impedance was between 300 and 800 ohms at all levels.? Motor stimulation up to 2V elicited multifidus twitching in the lumbar spine. There was no motor stimulation in the lower extremities. After negative aspiration, 1ml of 2% lidocaine was injected at each of the levels and radiofrequency denervation carried out using 80 degrees Celsius for 90 seconds. The needles were then rotated 90 degrees and a second ablation was performed at 80 degrees Celsius for 90 seconds. After ablation, a mixture of 10 mg dexamethasone with 0.25% bup ivacaine 5 mL was injected in equal amounts among the sites (1 mL per site). Next, the left L4-5 and L5-S1 facet joints were visually identified with fluoroscopy. Lidocaine 1% was used to anesthetize the skin over each target destination with a 25ga needle. An 18 ga, 100 mm RFA needle with a 10 mm active tip was advanced to the location of the medial branch at the junction of the superior articular process and the transverse process at left L3, 4, 5 using intermittent fluoroscopy in the oblique view with caudal tilt. AP and lateral radiographs were taken to confirm proper needle placement. No paresthesias were noted. The stylet was removed and the radiofrequency probe was inserted through the cannula. Each level was individually tested. The impedance was between 300 and 800 ohms at all levels.? Motor stimulation up to 2V elicited multifidus twitching in the lumbar spine. There was no motor stimulation in the lower extremities. After negative aspiration, 1ml of 2% lidocaine was injected at each of the levels and radiofrequency denervation carried out using 80 degrees Celsius for 90 seconds. The needles were then rotated 90 degrees and a second ablation was performed at 80 degrees Celsius for 90 seconds. After ablation, a mixture of 10 mg dexamethasone with 0.25% bupivacaine 5 mL was injected in equal amounts among the sites (1 mL per site). At the end of the procedure the needles were withdrawn and Band-Aids were applied for a dressing. This procedure is expected to denervate the bilateral L4-5 and L5-S1 facet joints. Post Procedure: Patient was taken to the recovery and monitored. The patient was provided a Pain Log to continue to record the patient's response to the target- specific procedure prior to the patient's follow-up visit with the referring physician. Patient was stable upon discharge. Detailed post procedure instructions were provided. Patient was asked to call in the event of worsening pain, fever, weakness, numbness or bladder or bowel incontinence. Complications: None
== END 2023-03-17 16:09 | disposition home or self-care (01) ==
LOC: RAD 14:33
PROVIDERS: Family Provider Family Medicine; PCP Nurse Practitioner Family; Referring Provider Anesthesiology; Visit Provider Anesthesiology
DX: M47.816 Spondylosis without myelopathy or radiculopathy, lumbar region (principal)
CPT/HCPCS: 64635; 64636; 99152; 99153; J1100; J2250

== ENCOUNTER → 2023-04-20 13:36 | Outpatient (CLI) | payer MEDICARE, OTHER, SELFPAY ==
[2023-04-20 14:12] LABS: Add Manual Diff / Slide Review NO; Basophils Absolute Auto 0 /uL (0-100); Basophils Percent Auto 0.8 % (0-2); Eosinophils Absolute Auto 100 /uL (0-450); Eosinophils Percent Auto 2.1 % (2-4); Hematocrit 41.7 % (36-46); Lymphocytes Absolute Auto 1000 /uL (1100-4500); Lymphocytes Percent Auto 16.6 % (25-40); Mean Corpuscular HGB Conc 33.5 % (30-36); Mean Corpuscular Hemoglobin 31.8 PG (26-34); Mean Corpuscular Volume 94.9 fL (80-100); Monocytes Absolute Auto 700 /uL (0-900); Monocytes Percent Auto 11.7 % (3-14); Neutrophils Absolute Auto 4100 /uL (1500-7000); Neutrophils Percent Auto 68.8 % (50-75); Platelet Count 198 X10^3/uL (150-400); Red Blood Cell Count 4.39 X10^6/uL (4.0-5.2); Red Cell Distribution Width 15.9 % (11.6-14.8); White Blood Cell Count 5.9 X10^3/uL (4.5-11.0)
[2023-04-20 14:33] LABS: Alanine Aminotransferase 19 IU/L (<35); Albumin Globulin Ratio 1.5 (1.0-2.8); Alkaline Phosphatase 68 U/L (38-126); Aspartate Aminotransferase 19 IU/L (14-36); BUN Creatinine Ratio 19.4 (6-22); Bilirubin Total 0.3 mg/dL (0.2-1.3); Blood Urea Nitrogen 12 mg/dL (7-17); Calcium 10.8 mg/dL (8.4-10.2); Carbon Dioxide 29 mmol/L (22-32); Chloride 106 mmol/L (98-107); Estimated Glomerular Filt Rate > 60 mL/min (>60); Globulin 2.6 g/dL (1.7-4.1); Glucose 98 mg/dL (80-110); HEMOLYSIS < 15 (0-50); Lactate Dehydrogenase 154 U/L (120-246); Phosphorous 3.5 mg/dL (2.8-4.1); Sodium 140 mmol/L (137-145); Total Protein 6.6 g/dL (6.3-8.2)
[2023-04-20 15:31] LABS: Vitamin D 25 Hydroxy (D3) 37.2 ng/mL (30.0-100.0)
[2023-04-22 08:44] LABS: Calcium 10.7 mg/dL (8.7-10.3); Parathyroid Hormone, Intact 83 pg/mL (15-65)
== END ==
PROVIDERS: Internal Medicine Medical Oncology; Family Provider Family Medicine; PCP Nurse Practitioner Family; Referring Provider Student in an Organized Health Care Education/Training Program; Visit Provider Student in an Organized Health Care Education/Training Program
DX: E21.3 Hyperparathyroidism, unspecified (principal); C34.90 Malignant neoplasm of unspecified part of unspecified bronchus or lung
CPT/HCPCS: 36415; 80053; 80069; 82306; 82310; 83615; 83970; 85025

== ENCOUNTER → 2023-04-26 10:16 | Outpatient (CLI) | payer MEDICARE, OTHER, SELFPAY ==
--- NOTE | 2023-04-26 10:17 | DI.CT.S_ITS ---
PROCEDURE: CT CHEST ABD PEL W CON INDICATIONS: small cell lung cancer, monitoring TECHNIQUE: After the administration of oral and intravenous contrast, axial sections acquired from the supraclavicular neck to the pubic symphysis. Coronal and sagittal reformats were performed. For radiation dose reduction, the following was used: automated exposure control, adjustment of mA and/or kV according to patient size. COMPARISON: [facility], CT, CT CHEST ABD PEL W CON, 11/03/2022, 12:23. FINDINGS: Image quality: Good Lungs and pleura: Small nodule in the posterior medial portion of the left upper lobe is stable. Multiple pulmonary nodules most notably in the right upper lobe again seen, variably present on prior studies, for example next to the fissure (5/115) measuring 1 cm. There are surrounding ground-glass opacities. Very subtle ill-defined diffuse ground-glass nodules are present throughout both lungs. Mediastinum, heart, and esophagus: A prominent periesophageal lymph node is seen again next to the distal esophagus. Normal heart size. There are coronary calcifications. No pathologic mediastinal adenopathy by size criteria. The right hilar mass is much smaller compared to May of 2022, measuring about 8-9 mm in short axis (2/29). This is stable compared to October 2022. Chest wall and thyroid: Calcifications/hyperdensities again seen accident thyroid region. 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 No axillary adenopathy. Solid organs: There are numerous new liver lesions, index lesion in the medial portion of the right lobe (2/62) measuring 1.4 cm. Gallbladder is unremarkable. No pathologic dilation of the biliary tree or pancreatic duct. No splenomegaly. Similar nodularity and thickening of the adrenal glands. No hydronephrosis. Vessels and lymph nodes: No abdominal aortic aneurysm or pathologic adenopathy by size criteria. Bowel and peritoneum: No evidence of bowel obstruction. No pathologic ascites or drainable abscess. There are colonic diverticula. Body wall: Unremarkable Pelvis: Reproductive organs are unremarkable on limited CT evaluation. Bladder is unremarkable. Bones: Degenerative changes, without overt osseous lesion. Consider bone scan or PET-CT for increased sensitivity if needed. IMPRESSION: Numerous suspicious new liver lesions. Consider further evaluation with PET-CT or sampling. Multiple small pulmonary nodules, most notably in the right upper lobe, variably present on prior studies, possibly infectious/inflammatory with differential including metastatic disease. Attention on follow-up. Innumerable additional ill-defined ground-glass nodules in both lungs indicating ongoing respiratory bronchiolitis Other stable and incidental findings above. Dictated by: John Lemos M.D. on 04/26/2023 at 15:34 Approved by: John Lemos M.D. on 04/26/2023 at 15:47
== END ==
PROVIDERS: Family Provider Family Medicine; PCP Nurse Practitioner Family; Referring Provider Internal Medicine Medical Oncology; Visit Provider Internal Medicine Medical Oncology
DX: C34.11 Malignant neoplasm of upper lobe, right bronchus or lung (principal); C77.1 Secondary and unspecified malignant neoplasm of intrathoracic lymph nodes; K76.9 Liver disease, unspecified; R91.1 Solitary pulmonary nodule; I25.10 Atherosclerotic heart disease of native coronary artery without angina pectoris
CPT/HCPCS: 71260; 74177; Q9967

== ENCOUNTER → 2023-05-18 10:19 | Outpatient (CLI) | payer MEDICARE, OTHER, SELFPAY ==
[2023-05-18 11:21] LABS: Add Manual Diff / Slide Review NO; Basophils Absolute Auto 0 /uL (0-100); Basophils Percent Auto 0.7 % (0-2); Eosinophils Absolute Auto 200 /uL (0-450); Hematocrit 43.2 % (36-46); Hemoglobin 14.4 g/dL (12.0-16.0); Lymphocytes Absolute Auto 900 /uL (1100-4500); Lymphocytes Percent Auto 14.9 % (25-40); Mean Corpuscular HGB Conc 33.4 % (30-36); Mean Corpuscular Hemoglobin 31.5 PG (26-34); Mean Corpuscular Volume 94.5 fL (80-100); Monocytes Absolute Auto 700 /uL (0-900); Monocytes Percent Auto 11.4 % (3-14); Neutrophils Absolute Auto 4400 /uL (1500-7000); Platelet Count 198 X10^3/uL (150-400); Red Blood Cell Count 4.57 X10^6/uL (4.0-5.2); Red Cell Distribution Width 15.4 % (11.6-14.8); White Blood Cell Count 6.3 X10^3/uL (4.5-11.0)
[2023-05-18 11:46] LABS: Alanine Aminotransferase 24 IU/L (<35); Albumin 3.9 g/dL (3.5-5.0); Albumin Globulin Ratio 1.4 (1.0-2.8); Alkaline Phosphatase 63 U/L (38-126); Aspartate Aminotransferase 22 IU/L (14-36); BUN Creatinine Ratio 27.9 (6-22); Bilirubin Total 0.4 mg/dL (0.2-1.3); Blood Urea Nitrogen 17 mg/dL (7-17); Calcium 10.3 mg/dL (8.4-10.2); Carbon Dioxide 28 mmol/L (22-32); Chloride 106 mmol/L (98-107); Estimated Glomerular Filt Rate > 60 mL/min (>60); Globulin 2.8 g/dL (1.7-4.1); Glucose 95 mg/dL (80-110); HEMOLYSIS < 15 (0-50); Potassium 3.9 mmol/L (3.4-5.1); Sodium 140 mmol/L (137-145); Total Protein 6.7 g/dL (6.3-8.2)
[2023-05-18 11:54] LABS: Lactate Dehydrogenase 160 U/L (120-246)
== END ==
PROVIDERS: Family Provider Family Medicine; PCP Nurse Practitioner Family; Referring Provider Internal Medicine Hematology & Oncology; Visit Provider Internal Medicine Hematology & Oncology
DX: C34.90 Malignant neoplasm of unspecified part of unspecified bronchus or lung (principal)
CPT/HCPCS: 36415; 80053; 83615; 85025

== ENCOUNTER → 2023-05-20 12:28 | Outpatient (CLI) | payer MEDICARE, OTHER, SELFPAY ==
--- NOTE | 2023-05-20 12:29 | DI.MRI.S_ITS ---
PROCEDURE: MR HEAD/BRAIN WO/W CON INDICATIONS: small cell lung cancer, rule out brain mets TECHNIQUE: Noncontrast axial T1 spin echo, axial T2 fast spin echo, sagittal and axial FLAIR, coronal T2 fast spin echo, axial gradient echo, axial diffusion and ADC through the brain. After the administration of contrast, axial and coronal and sagittal 3D VIBE or T1 spin echo with fat saturation through the brain. COMPARISON: Located Within [facility], , MR HEAD/BRAIN WO/W CON, 04/19/2022, 15:46. FINDINGS: Image quality: Excellent. CSF Spaces: Basal cisterns are patent. No extra-axial fluid collections. Ventricles are normal in size and shape. Brain: Moderate atrophy and white matter chronic ischemic change. Diffusion sequence unremarkable. No acute hemorrhage. Multifocal enhancing metastatic lesions are noted particularly in the left cerebellar hemisphere, where nodules are ring-enhancing with evidence of necrotic center. Largest in the left cerebellar hemisphere measuring 2.9 x 2.6 cm. Additional smaller nodules noted in the right cerebellar flocculus, right temporal para hippocampal gyrus, left parietal precuneus, and left occipital cuneus. No midline shift Skull and face: Calvarial marrow is normal in signal. Orbits appear normal. Sinuses: Sinuses and mastoids appear clear. IMPRESSION: Bilateral cerebral and cerebellar metastasis, new from the prior exam. No midline shift Approved by: Cristian Calderón M.D. on 05/20/2023 at 18:40
== END ==
PROVIDERS: Family Provider Family Medicine; PCP Nurse Practitioner Family; Referring Provider Internal Medicine Hematology & Oncology; Visit Provider Internal Medicine Hematology & Oncology
DX: C34.90 Malignant neoplasm of unspecified part of unspecified bronchus or lung (principal); C79.31 Secondary malignant neoplasm of brain; R20.2 Paresthesia of skin
CPT/HCPCS: 70553; A9579

== ENCOUNTER 2023-06-07 11:26 | Day surgery (SDC) | payer MEDICARE, OTHER, SELFPAY ==
[2023-05-26 08:21] VITALS: BMI 31.7
[2023-06-07] VITALS (9 sets, daily range): BP systolic 112–131; BP diastolic 68–81; PULSE 77–84; RESP 12–16; TEMP 36.1–36.3; O2SAT 88–96; BMI 31.7
--- NOTE | 2023-06-07 | DI.RAD.S_ITS ---
PROCEDURE: XR CHEST 1V INDICATIONS: POST OP PORT-A-CATH PLACEMENT TECHNIQUE: One view of the chest was acquired. COMPARISON: [facility], CT, CT CHEST ABD PEL W CON, 04/26/2023, 12:00. [facility], CR, XR CHEST 1V, 04/20/2022, 13:36. FINDINGS: Surgical changes and devices: Left IJ chest port is been placed with tube tip projected over the mid superior vena cava. Lungs and pleura: Diffuse, widespread bilateral interstitial opacities are present similar prior examination. No pleural effusion or pneumothorax. Mediastinum: Mediastinal contours appear normal. Heart size is enlarged. Bones and chest wall: No suspicious bony lesions. Overlying soft tissues appear unremarkable. IMPRESSION: 1. Placement of left IJ chest Port-A-Cath with tip projected over the mid superior vena cava. 2. Widespread bilateral interstitial opacities with mild cardiomegaly suggestive of mild edema/fluid overload. Atypical pneumonia cannot be excluded. Dictated by: Best Jenkins Peg Interpreted: Alonso Reilly MD on 06/07/2023 at 15:00 Transcribed by: RANJANA on 06/07/2023 at 15:02 Approved by: Alonso Reilly M.D. on 06/07/2023 at 21:05
[2023-06-07] MEDS: LACTATED RINGERS 1,000 ML 42 ML IV ×2 (12:14→13:57)
[2023-06-07] MEDS: ALBUTEROL/IPRATROPIUM 3 ML AMPUL INH ×2 (12:14→14:57)
--- NOTE | 2023-06-07 12:30 | P.HP_ITS ---
History of Present Illness History of Present Illness Date Patient Seen: 06/07/23 Time Patient Seen: 12:30 Chief complaint: Port-A-Cath Placement Narrative: A 73-year-old woman with small-cell lung cancer was sent for Port-A-Cath placement by her oncologist Dr. Ortega per his note: Kal Diane is a pleasant 73-year-old smoker woman from [place]. In 2021, she was diagnosed with limited stage small cell lung cancer.? PET-CT on 04/21/2022 showed a cluster of nodules in posterior segment right upper lobe with increased FDG uptake, largest 1.2 cm with SUV 3.5.? There were multiple other small lung nodules bilaterally with low level FDG uptake, likely benign.? There was hypermetabolic right hilar lymph node with SUV 8.5, enlarged mediastinal lymph nodes with abnormal FDG uptake, largest right paratracheal 2.2 cm with SUV 8.7.? She underwent concurrent chemoradiotherapy with 4 cycles of cisplatin/etoposide, ending 07/29/22.? She had a DVT associated with her Port-A-Cath and it was removed. Surveillance CT 04/26/2023 showed numerous new liver lesions, index lesion in medial portion of right hepatic lobe, 1.4 cm.? There were also multiple small pulmonary nodules, most notably in right upper lobe, variably present on prior studies, possibly infectious/inflammatory with differential including metastatic disease. Ms. Diane states that her previous Port-A-Cath was placed on her right side and she could feel a tube running over her clavicle (and had some questions about that) but she feels that she understands the procedure and states that the Port-A-Cath has been out for 6 months and she understands that it is time for replacement and thinks that attempting to place this today on the left side make sense. [facility] Medical History Anxiety Arthritis Atherosclerosis of coronary artery Cervical radiculopathy Cervicalgia Elevated coronary artery calcium score HTN (hypertension) Hyperglycemia Hyperlipidemia Hyperparathyroidism Knee pain Low back pain Lumbar radiculopathy Lumbar spondylosis Lymphadenopathy Malaise and fatigue Nicotine abuse ROHAN (obstructive sleep apnea) Paresthesia and pain of both upper extremities Paresthesia of foot, bilateral Peripheral neuralgia Poor balance Serum calcium elevated Shortness of breath Shoulder pain, bilateral Sleep apnea Small cell lung cancer Smoker Spondylolisthesis Ulnar nerve entrapment Surgical History H/O carpal tunnel repair (~2002) History of appendectomy (1959) History of bunionectomy (~1997) History of endoscopy History of removal of Port-a-Cath (10/28/22) Hx of eye surgery (~2010) Total knee replacement status Social History household members: family and children Smoking Status: Current every day smoker alcohol intake: current Meds Home Medications and Allergies Home Medications Medication Instructions Recorded Confirmed Type acetaminophen 650 mg 650 mg PO Q12H 04/13/22 06/07/23 History tablet,extended release amlodipine 5 mg tablet 5 mg PO DAILY 04/13/22 06/07/23 History ascorbic acid (vitamin C) 500 mg 500 mg PO DAILY 04/13/22 05/30/23 History tablet (Vitamin C) levothyroxine 100 mcg tablet 100 mcg PO DAILY 04/13/22 06/07/23 History ibuprofen 200 mg tablet 400 mg PO Q8H PRN pain 02/14/23 06/07/23 History gabapentin 100 mg capsule 300 mg PO BEDTIME #90 caps 05/16/23 06/07/23 Rx naloxone 4 mg/actuation nasal spray 4 mg intranasal Q3M PRN opioid 05/30/23 05/30/23 Rx overdose #2 ea tramadol 50 mg tablet 50 mg PO BID PRN pain #60 tabs 05/30/23 06/07/23 Rx Allergies Allergy/AdvReac Type Severity Reaction Status Date / Time No Known Drug Allergies Allergy Verified 06/07/23 11:46 Exam Vital Signs (past 8 hours): - 06/07/23 11:51 Temperature 97.3 F L Pulse Rate 77 Respiratory Rate 16 Blood Pressure 130/80 Pulse Oximetry 95 Oxygen Delivery Method Room Air Oxygen Delivery Method Room Air Const General: cooperative, comfortable, ill appearing and other (Barrel chest) HENMT Head: normal to inspection Eyes General: appearance normal, both eyes and all related structures Chest Chest: other (Barrel chested) Resp Effort & Inspection: normal respiratory effort (Some increased work of respiration and has a breathing treatment being admi) and able to speak in complete sentences Extrem Other: Clubbing of the fingernails bilaterally Assessment & Plan Assessment and plan (1) Small cell lung cancer: Status: Chronic Assessment & Plan narrative: Metastatic small-cell lung cancer sent as a referral by Dr. Lorenzana for Port-A-Cath placement. I discussed with her the risks benefits and alternatives of placement of the port. She expressed she understands the benefits and because she is had 1 before and because I described the process in detail she had no questions about what the procedure entailed. I also described for her risks including but not limited to catheter malfunction infection bleeding pneumothorax and damage to blood vessels in very rare cases. She understands these risks and would like to proceed.
[2023-06-07] MEDS: CEFAZOLIN 2 GM/100 ML PREMIX 100 ML IV (12:44)
--- NOTE | 2023-06-07 13:11 | SUR.OPER ---
Supine on padded OR bed, head on pillow, arms padded and tucked at sides, legs uncrossed, safety belt at thigh, tape over blanket over lower legs .
[2023-06-07] MEDS: HEPARIN 5,000 UNIT, SODIUM CHLORIDE 0.9% 50 ML IV (13:16)
[2023-06-07] MEDS: BUPIVACAINE 0.5% W/ EPI (PF) 30 ML VIAL INJ (13:18)
--- NOTE | 2023-06-07 14:29 | P.OP_ITS ---
Operative Date/Time/Diagnoses Date of procedure: 06/07/23 Time of procedure: 14:29 Pre-op diagnosis: Small-cell lung cancer Post-op diagnosis: same Procedure & Clinicians Procedure: Port-A-Cath placement Same procedure as scheduled: Yes Indications: Small-cell lung cancer need for central venous access Surgeon: Jacklyn West Click Yes if Unassisted: Yes Anesthesia Type: General Operative Notes Findings: Left jugular insertion site. Subclavian attempt x2, unable to scoot below clavicle therefore turned to jugular. A kink in the catheter required extra time in dissection of the insertion site with spreading of the tissues and splitting about 1 cm of the sternocleidomastoid muscle to allow a smooth turn in the catheter. At the end of the case the catheter flushed and aspirated well i ts position was confirmed by x-ray. Specimen(s): none sent Procedure in detail: Patient was taken to the operating room and placed supine on the operating room table bilateral SCDs were placed a time-out was performed general endotracheal anesthesia was induced. A shoulder roll was placed. The chest and neck were prepped and draped sterile fashion. Preoperative antibiotics were administered. Next the ultrasound was draped and used sterilely on the field to identify the subclavian vein. Attempt to place the introducer needle into the subclavian vein under direct ultrasound-guided visualization was made. Attempts x2 failed to cannulate the vein due to difficulty with the clavicle and tight anatomy. Rather than continue attempts in this location attention was turned to the left jugular vein. Ultrasound guidance was used to cannulate the vein easily on the 1st attempt. A guidewire was placed through the introducer needle and its position was confirmed with an x-ray. Next an 11 blade scalpel was used to open the skin and the dilator and tear-away catheter was placed. Next an incision was made over the left chest and a pocket created using blunt and hydrodissection with local anesthesia. Finally the catheter was positioned and checked with an x-ray and cut to 23 cm. This was then placed on the tunneler and tunneled over the clavicle and through the incision made in the neck. The button portion of the catheter was secured to the catheter in the pocket wound. The catheter and the button were flushed. The catheter was then placed into the tear-away catheter sheath and the sheath was removed. An x-ray was obtained and the tip of the catheter was in the superior vena cava. At this point I tried to aspirate and flush the catheter and was unable to do so. Another x-ray obtained of the neck showed a kink that was sharp at entry point of the catheter into the sternocleidomastoid muscle. I attempted to manipulate the catheter down to no avail and eventually needed to open the incision on the neck slightly larger. 1.5 cm incision in the neck suffice in order to use a hemostat to loosen and dissect the tissues surrounding the catheter's entry point through the sternocleidomastoid. This allowed me to manipulate the catheter further down and take out the kink making the transition around the clavicle and down into the jugular vein a smoother curve. I did need to make a small incision in the sternocleidomastoid for which I used electrocautery. After this dissection and repositioning the catheter aspirated and flushed easily. A final x-ray confirmed the kink had been smooth out and the catheter tip was in the correct location. I did place 3-0 Vicryl suture through the incision that was made in the sternocleidomastoid as well as 2 subcutaneous 3-0 Vicryl sutures to close the space in the neck. I checked to be certain that the catheter still flushed and aspirated after these closure sutures were placed. I then placed some 3-0 Vicryl sutures in the subcutaneous tissue closing the pocket incision. Just prior to that I placed a 2-0 Prolene suture in an interrupted fashion in the 2 medial and lateral corners of the button to secure it in its location to the chest wall. I did not place a 3rd deeper suture in the inferior corner of the button. The skin was then closed with running 4-0 Monocryl and dressed with Steri-Strips. A pressure dressing was placed over the neck wound. Otherwise the patient tolerated the procedure well and went in good condition to the p ostoperative care unit and a postoperative chest x-ray was obtained. I personally reviewed the films and the radiologist's read is pending but there is no large pneumothorax present. The catheter is in a good location.
--- NOTE | 2023-06-07 15:32 | SUR.PHASEII ---
Assume care. Patient denied pain. Continuous pulse ox in place. O2 sat 88-92%RA. Deep breaths, cough encouraged. Call light within reach.
--- NOTE | 2023-06-07 16:16 | SUR.PHASEII ---
IS provided, verbal instructions given. Patient able to reach 1100 mmHG. Encouraged IS use hourly. Patient dressed independently. O2 sat 93-94% RA.
--- NOTE | 2023-06-07 16:20 | SUR.PHASEII ---
Verified with Dr. Hernandes that patient may remove her dressings tomorrow. Patient notified.
== END 2023-06-07 16:09 | disposition home or self-care (01) ==
PROVIDERS: Family Provider Family Medicine; PCP Nurse Practitioner Family; Referring Provider Surgery; Visit Provider Surgery
PROC: (CPT 36561; principal; 2023-06-07 12:30)
DX: C34.90 Malignant neoplasm of unspecified part of unspecified bronchus or lung (principal)
CPT/HCPCS: 36561; 71045; 76000; C1788; J0690; J1100; J1644; J2405; J2704; J3010

== ENCOUNTER 2023-08-08 13:21 | Emergency (ER) | payer MEDICARE, OTHER, SELFPAY ==
[2023-08-08] VITALS (17 sets, daily range): BP systolic 106–136; BP diastolic 63–75; PULSE 84–94; RESP 18–29; TEMP 36.8–37; O2SAT 92–95; BMI 31.1
--- NOTE | 2023-08-08 14:09 | DI.RAD.S_ITS ---
PROCEDURE: XR CHEST 1V INDICATIONS: Eval for pneumonia TECHNIQUE: One view of the chest was acquired. COMPARISON: [facility], CR, XR CHEST 1V, 06/07/2023, 14:36. FINDINGS: Surgical changes and devices: Left chest wall Port-A-Cath tip is in SVC. Lungs and pleura: Ill-defined increased opacity in left infrahilar region is seen. Right lung is clear. No pleural effusions or pneumothorax. Mediastinum: Mediastinal contours appear normal. Heart size is normal. Bones and chest wall: No suspicious bony lesions. Overlying soft tissues appear unremarkable. IMPRESSION: Finding is concerning for small left infrahilar infiltrate . Clinical correlation and follow-up is recommended. Dictated by: Reese Alvarado M.D. on 08/08/2023 at 15:24 Approved by: Reese Alvarado M.D. on 08/08/2023 at 15:24
--- NOTE | 2023-08-08 14:17 | ED.GENADULT ---
HPI - General Adult General Chief complaint: Fever Stated complaint: chemo last week/temp 101 Time Seen by Provider: 08/08/23 14:09 Source: patient and family Mode of arrival: Ambulatory Limitations: altered mental status History of Present Illness HPI narrative: Patient is a 73-year-old female. Does have lung cancer. Metastasis to the brain. Is normally alert oriented per family was at bedside. Chemotherapy was last Tuesday and Tuesday. Next round of chemotherapy will be a week from today. This morning patient's daughter states that she noticed the patient was very hot when she woke her up this morning. Took a temperature and was 101. No antipyretics were administered. Family also states she is more confused this morning. Patient does seem to be somewhat confused about answering questions. Is very slow to answer questions which this is new per family at bedside. Patient states she is in pain but can not specifically tell us where she is having discomfort. Has not been vomiting. Related Data Home Medications Medication Instructions Recorded Confirmed acetaminophen 650 mg 650 mg PO Q12H 04/13/22 07/05/23 tablet,extended release amlodipine 5 mg tablet 5 mg PO DAILY 04/13/22 07/05/23 levothyroxine 100 mcg tablet 100 mcg PO DAILY 04/13/22 07/05/23 ibuprofen 200 mg tablet 400 mg PO Q8H PRN pain 02/14/23 07/05/23 gabapentin 100 mg capsule 100 mg PO BEDTIME 07/05/23 07/05/23 Previous Rx's Medication Instructions Recorded naloxone 4 mg/actuation nasal spray 4 mg intranasal Q3M PRN opioid 05/30/23 overdose #2 ea oxycodone 5 mg tablet 5 mg PO Q6H PRN pain #7 tabs 06/07/23 dexamethasone 2 mg tablet 4 mg PO BID #55 tabs 06/08/23 tramadol 50 mg tablet 50 mg PO BID PRN pain #60 tabs 06/13/23 levofloxacin 750 mg tablet 750 mg PO DAILY 4 days #4 tabs 08/08/23 Allergies Allergy/AdvReac Type Severity Reaction Status Date / Time No Known Drug Allergies Allergy Verified 07/05/23 13:56 Review of Systems Review of Systems Narrative: Provided by patient and family ROS Unobtainable: All systems reviewed & are unremarkable except as noted in HPI and below Patient History Medical History Anxiety Arthritis Atherosclerosis of coronary artery Cervical radiculopathy Cervicalgia Elevated coronary artery calcium score HTN (hypertension) Hyperglycemia Hyperlipidemia Hyperparathyroidism Knee pain Low back pain Lumbar radiculopathy Lumbar spondylosis Lymphadenopathy Malaise and fatigue Nicotine abuse ROHAN (obstructive sleep apnea) Paresthesia and pain of both upper extremities Paresthesia of foot, bilateral Peripheral neuralgia Poor balance Serum calcium elevated Shortness of breath Shoulder pain, bilateral Sleep apnea Small cell lung cancer Smoker Spondylolisthesis Ulnar nerve entrapment Surgical History H/O carpal tunnel repair (~2002) History of appendectomy (1959) History of bunionectomy (~1997) History of endoscopy History of removal of Port-a-Cath (10/28/22) Hx of eye surgery (~2010) Total knee replacement status Social History household members: family and children Smoking Status: Current every day smoker alcohol intake: current Smoking Status: Current every day smoker alcohol intake frequency: 0-2 drinks per day Substance Use Type: does not use Exam Initial Vital Signs Initial Vital Signs: Vital Signs Pulse Rate 93 H 08/08/23 13:54 Respiratory Rate 21 08/08/23 13:54 Pulse Oximetry 93 08/08/23 13:54 HENMT Head: normal to inspection and normocephalic Resp Effort & Inspection: normal respiratory effort Auscultation: clear to auscultation bilaterally Cardio Rate: regular rate Rhythm: regular rhythm GI Inspection: normal to inspection and non-distended Skin General: no rashes or lesions noted Neuro General: patient alert, patient awake and moves all extremities Other: Oriented to person and place and year. Does seem to have some difficulty specifically answering questions. Extrem General: normal to inspection and capillary refill normal Course Orders Ordered: ED Orders 08/08/23 14:09 XR chest 1V Stat 08/08/23 14:15 Blood Culture Stat Complete Blood Count AUTO DIFF Stat Comprehensive Metabolic Panel Stat Lactate (Lactic Acid) Stat Lipase Stat Procalcitonin Stat 08/08/23 14:18 CT head/brain wo con Stat 08/08/23 16:36 Urinalysis and Microscopic Stat Urine Culture Stat Discontinued Medications Sodium Chloride (Normal Saline 0.9%) 1,000 mls @ 1,000 mls/hr IV BOLUS ONE Stop: 08/08/23 16:50 Last Admin: 08/08/23 16:03 Dose: 1,000 mls/hr Documented By: ST Levofloxacin (Levofloxacin 250 Mg Tablet) 750 mg PO NOW ONE Stop: 08/08/23 15:53 Last Admin: 08/08/23 16:03 Dose: 750 mg Documented By: Vital Signs Vital signs: Vital Signs - 8 hr 08/08/23 14:26 08/08/23 13:54 08/08/23 13:55 Temperature 98.6 F Pulse Rate 89 93 H 93 H Respiratory Rate 22 21 21 Blood Pressure 106/64 Pulse Oximetry 94 93 93 Oxygen Delivery Method Room Air 08/08/23 13:55 08/08/23 14:00 08/08/23 14:00 Temperature Pulse Rate 94 H Respiratory Rate 19 Blood Pressure 116/69 106/64 Pulse Oximetry 94 Oxygen Delivery Method 08/08/23 14:30 08/08/23 14:32 08/08/23 14:32 Temperature Pulse Rate 90 88 Respiratory Rate 29 H 19 Blood Pressure 120/75 Pulse Oximetry 92 92 Oxygen Delivery Method 08/08/23 15:00 08/08/23 15:14 08/08/23 15:14 Temperature Pulse Rate 89 90 Respiratory Rate 19 19 Blood Pressure 116/68 Pulse Oximetry 93 92 Oxygen Delivery Method 08/08/23 15:30 08/08/23 15:30 08/08/23 16:00 Temperature Pulse Rate 87 Respiratory Rate 18 Blood Pressure 118/70 118/72 Pulse Oximetry 93 Oxygen Delivery Method 08/08/23 16:00 08/08/23 16:30 08/08/23 16:34 Temperature 98.3 F Pulse Rate 87 84 85 Respiratory Rate 19 26 H 20 Blood Pressure Pulse Oximetry 95 94 Oxygen Delivery Method 08/08/23 16:34 08/08/23 17:00 08/08/23 17:00 Temperature Pulse Rate 84 Respiratory Rate 18 Blood Pressure 131/63 124/64 Pulse Oximetry 94 Oxygen Delivery Method 08/08/23 17:30 08/08/23 17:30 08/08/23 18:00 Temperature Pulse Rate 89 87 Respiratory Rate 21 21 Blood Pressure 136/69 Pulse Oximetry 94 94 Oxygen Delivery Method 08/08/23 18:00 08/08/23 18:30 08/08/23 18:30 Temperature Pulse Rate 90 Respiratory Rate 22 Blood Pressure 129/67 128/73 Pulse Oximetry 94 Oxygen Delivery Method Medical Decision Making Medical Records Medical records reviewed: Yes I reviewed the patient's medical records. Lab Data Lab results reviewed: Yes I reviewed the patient's lab results. 08/08/23 14:15 08/08/23 14:15 Labs: Lab Results 08/08/23 08/08/23 08/08/23 Range/Units 14:15 14:15 14:15 WBC 2.6 L (4.5-11.0) X10^3/uL RBC 4.26 (4.0-5.2) X10^6/uL Hgb 13.1 (12.0-16.0) g/dL Hct 38.6 (36-46) % MCV 90.5 (80-100) fL MCH 30.9 (26-34) PG MCHC 34.1 (30-36) % RDW 14.4 (11.6-14.8) % Plt Count 46 L (150-400) X10^3/uL Neut % (Auto) Not Reportable Lymph % (Auto) Not Reportable [place] % (Auto) Not Reportable Eos % (Auto) Not Reportable Baso % (Auto) Not Reportable Lymph # (Auto) Not Reportable [place] # (Auto) Not Reportable Baso # (Auto) Not Reportable Total Counted 100 Seg Neutrophils % 94.0 H (38-70) % Band Neutrophils % 2.0 L (3-7) % Lymphocytes % (Manual) 2.0 L (25-45) % Monocytes % (Manual) 1.0 L (2-11) % Basophils % (Manual) 1.0 (0-1) % Neutrophils # (Manual) 2496 L (3719-0283) /uL Platelet Estimate Decreased on smear RBC Morphology Normal morphology Sodium 130 L (137-145) mmol/L Potassium 3.8 (3.4-5.1) mmol/L Chloride 100 (98-107) mmol/L Carbon Dioxide 26 (22-32) mmol/L BUN 12 (7-17) mg/dL Creatinine 0.61 (0.52-1.04) mg/dL Estimated GFR > 60 (>60) mL/min BUN/Creatinine Ratio 19.7 (6-22) Glucose 133 H (80-110) mg/dL Lactate 1.3 (0.7-2.1) mmol/L Calcium 10.1 (8.4-10.2) mg/dL Total Bilirubin 0.6 (0.2-1.3) mg/dL AST 28 (14-36) IU/L ALT 44 H (<35) IU/L Alkaline Phosphatase 79 (38-126) U/L Total Protein 6.3 (6.3-8.2) g/dL Albumin 3.5 (3.5-5.0) g/dL Globulin 2.8 (1.7-4.1) g/dL Albumin/Globulin Ratio 1.3 (1.0-2.8) Lipase 40 (23-300) U/L Procalcitonin 0.33 (<0.5) ng/mL Urine Color Urine Appearance Urine pH (4.5-8.0) Ur Specific [place] (1.000-1.035) Urine Protein (Negative) Urine Glucose (UA) (Negative) g/dL Urine Ketones (NEGATIVE) Urine Occult Blood (Negative) Urine Nitrate (Negative) Urine Bilirubin (NEGATIVE) Urine Urobilinogen (0.2) E.U./dL Ur Leukocyte Esterase (NEGATIVE) Urine RBC (0-5/HPF) Urine WBC (0-5/HPF) Ur Squamous Epith Cells (0-5/HPF) Ur Transition Epith Cell (0-5/HPF) Urine Bacteria (None) 08/08/23 Range/Units 16:36 WBC (4.5-11.0) X10^3/uL RBC (4.0-5.2) X10^6/uL Hgb (12.0-16.0) g/dL Hct (36-46) % MCV (80-100) fL MCH (26-34) PG MCHC (30-36) % RDW (11.6-14.8) % Plt Count (150-400) X10^3/uL Neut % (Auto) Lymph % (Auto) [place] % (Auto) Eos % (Auto) Baso % (Auto) Lymph # (Auto) [place] # (Auto) Baso # (Auto) Total Counted Seg Neutrophils % (38-70) % Band Neutrophils % (3-7) % Lymphocytes % (Manual) (25-45) % Monocytes % (Manual) (2-11) % Basophils % (Manual) (0-1) % Neutrophils # (Manual) ([id number]) /uL Platelet Estimate RBC Morphology Sodium (137-145) mmol/L Potassium (3.4-5.1) mmol/L Chloride (98-107) mmol/L Carbon Dioxide (22-32) mmol/L BUN (7-17) mg/dL Creatinine (0.52-1.04) mg/dL Estimated GFR (>60) mL/min BUN/Creatinine Ratio (6-22) Glucose (80-110) mg/dL Lactate (0.7-2.1) mmol/L Calcium (8.4-10.2) mg/dL Total Bilirubin (0.2-1.3) mg/dL AST (14-36) IU/L ALT (<35) IU/L Alkaline Phosphatase (38-126) U/L Total Protein (6.3-8.2) g/dL Albumin (3.5-5.0) g/dL Globulin (1.7-4.1) g/dL Albumin/Globulin Ratio (1.0-2.8) Lipase (23-300) U/L Procalcitonin (<0.5) ng/mL Urine Color Yellow Urine Appearance Sl cloudy Urine pH 6.5 (4.5-8.0) Ur Specific [place] 1.025 (1.000-1.035) Urine Protein 2+ H (Negative) Urine Glucose (UA) Negative (Negative) g/dL Urine Ketones Negative (NEGATIVE) Urine Occult Blood 2+ H (Negative) Urine Nitrate Positive H (Negative) Urine Bilirubin Negative (NEGATIVE) Urine Urobilinogen >=8.0 (0.2) E.U./dL Ur Leukocyte Esterase Negative (NEGATIVE) Urine RBC 0-1/hpf (0-5/HPF) Urine WBC 1-5/hpf (0-5/HPF) Ur Squamous Epith Cells 1-5 /hpf (0-5/HPF) Ur Transition Epith Cell 0-1/hpf (0-5/HPF) Urine Bacteria Many (>30) H (None) Imaging Data CT scan - head: Radiologist's Impression: PROCEDURE:? CT HEAD/BRAIN WO CON ? INDICATIONS:? hx of lung cancer with Mets to brain and AMS ? TECHNIQUE:? Noncontrast 4.5 mm thick angled axial sections acquired from the foramen magnum to the vertex, with coronal and sagittal reformats.? For radiation dose reduction, the following was used:? automated exposure control, adjustment of mA and/or kV according to patient size.? ? COMPARISON:? [facility], MR, MR HEAD/BRAIN WO/W CON, 05/20/2023, 12:39. ? FINDINGS:? Image quality:? Excellent.? ? CSF spaces:? Basal cisterns are patent.? No extra-axial fluid collections.? The ventricles are symmetric in size and shape.? ? Brain:? Multiple cerebellar masses are more easily visualized on MRI than CT.? However, cystic areas secondary to the metastatic lesions are identified by CT.? No interval hemorrhage.? There is cerebral volume loss for age, with resultant ventricular and sulcal prominence.? There are periventricular and deep white matter chronic small vessel ischemic changes.? There is intracranial internal carotid artery atherosclerosis.? ? Skull and face:? Calvarium and visualized facial bones appear intact, without suspicious lesions.? ? Sinuses:? Visualized sinuses and mastoids are clear.? ? IMPRESSION:? ? 1. Known metastatic disease, primarily involving the cerebellum, or much more easily identifiable on the MRI from 2.5 months ago. ? 2. No acute hemorrhage or stroke or significant vasogenic edema or mass effect noted. ? Comment:? Consider nonemergent brain MRI with without contrast to identify progression or improvement in metastatic lesions Chest x-ray: Radiologist's Impression: PROCEDURE:? XR CHEST 1V ? INDICATIONS:? Eval for pneumonia ? TECHNIQUE:? One view of the chest was acquired.? ? COMPARISON:? [facility], CR, XR CHEST 1V, 06/07/2023, 14:36. ? FINDINGS:? ? Surgical changes and devices:? Left chest wall Port-A-Cath tip is in SVC. ? Lungs and pleura:? Ill-defined increased opacity in left infrahilar region is seen.? Right lung is clear.? No pleural effusions or pneumothorax.? ? Mediastinum:? Mediastinal contours appear normal.? Heart size is normal.? ? Bones and chest wall:? No suspicious bony lesions.? Overlying soft tissues appear unremarkable.? ? ? IMPRESSION:? Finding is concerning for small left infrahilar infiltrate .? Clinical correlation and follow-up is recommended.? MDM Narrative Medical decision making narrative: Patient is afebrile here. I did discuss the case with Dr. Ortega who is on-call for Oncology who is also the patient's oncologist. He feels that the altered mental status is most likely related to the chemotherapy and also her brain metastasis. There was no indication of any acute pathology on the CT scan. Chest x-ray does show potentially some concern about a pneumonia. Her urinalysis is nitrite positive. She was given Levaquin. She tolerated this without issue. Cultures were obtained. Will discharge patient home with a prescription for Levaquin. Will have her follow-up with Oncology for follow-up. Family expressed understanding and agreement. Discharge Plan Departure Patient Disposition: Home Clinical Impression: Urinary tract infection, Pneumonia, Lung cancer Instructions: DI for Fever (Symptom) -- Adult Activity Restrictions/Additional Instructions: A prescription for antibiotics was sent to [facility]. Her next dose will be tomorrow. Please take it as directed. Contact her oncologist for follow-up. Return to the emergency department for new or worsening symptoms. Continue all other medications as directed. Prescriptions: New levofloxacin 750 mg tablet 750 mg PO DAILY 4 Days Qty: 4 0RF No Action oxycodone 5 mg tablet 5 mg PO Q6H PRN (Reason: pain) Qty: 7 0RF Rx Instructions: Take as needed for pain. amlodipine 5 mg Tablet 5 mg PO DAILY levothyroxine 100 mcg Tablet 100 mcg PO DAILY acetaminophen 650 mg Tablet Extended Release 650 mg PO Q12H dexamethasone 2 mg Tablet 4 mg PO BID Qty: 55 0RF Rx Instructions: Take 2 tabs twice daily by mouth x 10days, then 2 tablets daily x5 days, then 1 tablet daily x5 days naloxone 4 mg/actuation spray,non-aerosol 4 mg intranasal Q3M PRN (Reason: opioid overdose) Qty: 2 0RF Rx Instructions: spray 1 dose into ONE nostril; alternate nostrils w each dose until help arrives ibuprofen 200 mg tablet 400 mg PO Q8H PRN (Reason: pain) tramadol 50 mg tablet 50 mg PO BID PRN (Reason: pain) Qty: 60 1RF gabapentin 100 mg capsule 100 mg PO BEDTIME Referrals: Myah Ny ARNP [Primary Care Provider] - Stand Alone Forms: Patient Portal/API
--- NOTE | 2023-08-08 14:18 | DI.CT.S_ITS ---
PROCEDURE: CT HEAD/BRAIN WO CON INDICATIONS: hx of lung cancer with Mets to brain and AMS TECHNIQUE: Noncontrast 4.5 mm thick angled axial sections acquired from the foramen magnum to the vertex, with coronal and sagittal reformats. For radiation dose reduction, the following was used: automated exposure control, adjustment of mA and/or kV according to patient size. COMPARISON: [facility], MR, MR HEAD/BRAIN WO/W CON, 05/20/2023, 12:39. FINDINGS: Image quality: Excellent. CSF spaces: Basal cisterns are patent. No extra-axial fluid collections. The ventricles are symmetric in size and shape. Brain: Multiple cerebellar masses are more easily visualized on MRI than CT. However, cystic areas secondary to the metastatic lesions are identified by CT. No interval hemorrhage. There is cerebral volume loss for age, with resultant ventricular and sulcal prominence. There are periventricular and deep white matter chronic small vessel ischemic changes. There is intracranial internal carotid artery atherosclerosis. Skull and face: Calvarium and visualized facial bones appear intact, without suspicious lesions. Sinuses: Visualized sinuses and mastoids are clear. IMPRESSION: 1. Known metastatic disease, primarily involving the cerebellum, or much more easily identifiable on the MRI from 2.5 months ago. 2. No acute hemorrhage or stroke or significant vasogenic edema or mass effect noted. Comment: Consider nonemergent brain MRI with without contrast to identify progression or improvement in metastatic lesions. Dictated by: Ladarius Valdovinos M.D. on 08/08/2023 at 14:48 Approved by: Ladarius Valdovinos M.D. on 08/08/2023 at 14:51
--- NOTE | 2023-08-08 14:39 | PC.NURSE ---
Pt states I feel rotten but does not answer when asked specific questions about symptoms or pain.
[2023-08-08 14:40] LABS: Hematocrit 38.6 % (36-46); Hemoglobin 13.1 g/dL (12.0-16.0); Mean Corpuscular HGB Conc 34.1 % (30-36); Mean Corpuscular Hemoglobin 30.9 PG (26-34); Mean Corpuscular Volume 90.5 fL (80-100); Platelet Count 46 X10^3/uL (150-400); Red Blood Cell Count 4.26 X10^6/uL (4.0-5.2); Red Cell Distribution Width 14.4 % (11.6-14.8); White Blood Cell Count 2.6 X10^3/uL (4.5-11.0)
[2023-08-08 14:54] LABS: Add Manual Diff / Slide Review YES
[2023-08-08 14:55] LABS: Alanine Aminotransferase 44 IU/L (<35); Albumin 3.5 g/dL (3.5-5.0); Albumin Globulin Ratio 1.3 (1.0-2.8); Alkaline Phosphatase 79 U/L (38-126); Aspartate Aminotransferase 28 IU/L (14-36); BUN Creatinine Ratio 19.7 (6-22); Bilirubin Total 0.6 mg/dL (0.2-1.3); Blood Urea Nitrogen 12 mg/dL (7-17); Calcium 10.1 mg/dL (8.4-10.2); Carbon Dioxide 26 mmol/L (22-32); Chloride 100 mmol/L (98-107); Estimated Glomerular Filt Rate > 60 mL/min (>60); Globulin 2.8 g/dL (1.7-4.1); Glucose 133 mg/dL (80-110); HEMOLYSIS < 15 (0-50); Lipase 40 U/L (23-300); Potassium 3.8 mmol/L (3.4-5.1); Sodium 130 mmol/L (137-145); Total Protein 6.3 g/dL (6.3-8.2)
[2023-08-08 14:56] LABS: Lactate (Lactic Acid) 1.3 mmol/L (0.7-2.1); Neutrophils Absolute Manual 2496 /uL (3000-5900); Platelet Estimate Decreased on smear; RBC Morphology Normal Morphology; Total Cells Counted 100
[2023-08-08 15:09] LABS: Procalcitonin 0.33 ng/mL (<0.5)
--- NOTE | 2023-08-08 15:19 | PC.NURSE ---
Accessed port, leticia second set of cultures, sent to lab. Daughter and friend at bedside. Pt resting comfortably.
[2023-08-08] MEDS: SODIUM CHLORIDE 0.9% 1,000 ML 1000 ML IV (16:03)
[2023-08-08] MEDS: levoFLOXacin 250 MG TABLET 750 MG PO (16:03)
[2023-08-08 18:47] LABS: Appearance Urine UA SL CLOUDY; Bilirubin Urine UA NEGATIVE (NEGATIVE); Color Urine UA YELLOW; Glucose Urine UA NEGATIVE (Negative); Ketones Urine UA NEGATIVE (NEGATIVE); Leukocyte Esterase Urine UA NEGATIVE (NEGATIVE); Nitrite Urine UA POSITIVE (Negative); Occult Blood Urine UA 2+ (Negative); Protein Urine UA 2+ (Negative); Specific Gravity Urine UA 1.025 (1.000-1.035); Urobilinogen Urine UA >=8.0 E.U./dL (0.2)
[2023-08-08 18:48] LABS: pH Urine UA 6.5 (4.5-8.0)
[2023-08-08 18:54] LABS: Bacteria Urine Many (>30); RBC Urine 0-1/HPF (0-5/HPF); Squamous Epithelial Cell Urine 1-5 /HPF (0-5/HPF); Transitional Epi Cells Urine 0-1/HPF (0-5/HPF); WBC Urine 1-5/HPF (0-5/HPF)
== END 2023-08-08 19:25 | disposition home or self-care (01) ==
PROVIDERS: Emergency Provider Emergency Medicine; Family Provider Family Medicine; PCP Nurse Practitioner Family
DX: N39.0 Urinary tract infection, site not specified (principal); J18.9 Pneumonia, unspecified organism; C34.90 Malignant neoplasm of unspecified part of unspecified bronchus or lung
CPT/HCPCS: 36415; 70450; 71045; 80053; 81001; 83605; 83690; 84145; 85007; 85025; 87040; 87077; 87086; 87147; 99284; J1642

== ENCOUNTER 2023-08-09 10:28 | Inpatient (IN) | payer MEDICARE, OTHER, SELFPAY ==
--- NOTE | 2023-08-09 10:44 | ED_ITS ---
HPI - General Adult General Stated complaint: here T-1 told to come back today Time Seen by Provider: 08/09/23 10:38 Source: patient and family Mode of arrival: Ambulatory Limitations: no limitations History of Present Illness HPI narrative: 73-year-old female. Has a history of lung cancer with metastasis to the brain. Is seen by Dr. Ortega at [facility]. Last round of chemotherapy was Tuesday and Tuesday of last week. I evaluated the patient in the emergency department yesterday. She was found to have a nitrite positive urine and a concern for pneumonia on the chest x-ray. I did discuss the case with Dr. Ortega. Patient was given an oral dose of Levaquin and discharged home with a prescription for this. She has yet to leaf size picker the prescription for today. Overnight her blood cultures were positive in both the anaerobic and aerobic bottles. The patient was contacted this morning to return to the emergency department. This morning the patient states that she does feel somewhat better than yesterday. No new symptoms. Related Data Home Medications Medication Instructions Recorded Confirmed acetaminophen 650 mg 650 mg PO Q12H 04/13/22 07/05/23 tablet,extended release amlodipine 5 mg tablet 5 mg PO DAILY 04/13/22 07/05/23 levothyroxine 100 mcg tablet 100 mcg PO DAILY 04/13/22 07/05/23 ibuprofen 200 mg tablet 400 mg PO Q8H PRN pain 02/14/23 07/05/23 gabapentin 100 mg capsule 100 mg PO BEDTIME 07/05/23 07/05/23 Previous Rx's Medication Instructions Recorded naloxone 4 mg/actuation nasal spray 4 mg intranasal Q3M PRN opioid 05/30/23 overdose #2 ea oxycodone 5 mg tablet 5 mg PO Q6H PRN pain #7 tabs 06/07/23 dexamethasone 2 mg tablet 4 mg PO BID #55 tabs 06/08/23 tramadol 50 mg tablet 50 mg PO BID PRN pain #60 tabs 06/13/23 levofloxacin 750 mg tablet 750 mg PO DAILY 4 days #4 tabs 08/08/23 Allergies Allergy/AdvReac Type Severity Reaction Status Date / Time No Known Drug Allergies Allergy Verified 08/09/23 10:53 Review of Systems Review of Systems ROS Unobtainable: All systems reviewed & are unremarkable except as noted in HPI and below Patient History Medical History Anxiety Arthritis Atherosclerosis of coronary artery Cervical radiculopathy Cervicalgia Elevated coronary artery calcium score HTN (hypertension) Hyperglycemia Hyperlipidemia Hyperparathyroidism Knee pain Low back pain Lumbar radiculopathy Lumbar spondylosis Lymphadenopathy Malaise and fatigue Nicotine abuse ROHAN (obstructive sleep apnea) Paresthesia and pain of both upper extremities Paresthesia of foot, bilateral Peripheral neuralgia Poor balance Serum calcium elevated Shortness of breath Shoulder pain, bilateral Sleep apnea Small cell lung cancer Smoker Spondylolisthesis Ulnar nerve entrapment Surgical History H/O carpal tunnel repair (~2002) History of appendectomy (1959) History of bunionectomy (~1997) History of endoscopy History of removal of Port-a-Cath (10/28/22) Hx of eye surgery (~2010) Total knee replacement status Social History household members: family and children Smoking Status: Current every day smoker alcohol intake: current Smoking Status: Current every day smoker alcohol intake frequency: 0-2 drinks per day Substance Use Type: does not use Exam Const General: other (Appears chronically ill) HENMT Face and sinus: normal facial exam Resp Effort & Inspection: normal respiratory effort Auscultation: clear to auscultation bilaterally Cardio Rate: regular rate Rhythm: regular rhythm GI Inspection: normal to inspection Neuro Speech: speech normal Other: Patient is alert. Moves all 4 extremities. Can stand but does need quite a bit of assistance. Extrem Other: No gross deformities Course Orders Ordered: ED Orders 08/09/23 10:38 Basic Metabolic Panel Stat Blood Culture Stat Complete Blood Count AUTO DIFF Stat Lactate (Lactic Acid) Stat Procalcitonin Stat Discontinued Medications Cefepime HCl 2 gm/ Sodium (Chloride) 100 mls @ 200 mls/hr IV NOW ONE Stop: 08/09/23 10:39 Medical Decision Making Lab Data Lab results reviewed: Yes I reviewed the patient's lab results. [facility] Narrative Medical decision making narrative: Patient is known to have positive blood cultures. I did discuss the case with Dr. Vilchis hospitalist on-call patient does require admission to the hospital for IV antibiotics. Repeat labs were drawn today. Repeat cultures were drawn today. Discussed the need for admission with the patient and family at bedside. Everyone expressed understanding and agreement with plan. Discharge Plan Departure Patient Disposition: Admitted As Inpatient Clinical Impression: Bacteremia, UTI (urinary tract infection), Lung cancer Admit Date/Time: 08/09/23 10:52 Admit Provider: Dimitri Vilchis
[2023-08-09 10:53] VITALS: BP 118/74; PULSE 89; RESP 18; TEMP 36.8; O2SAT 95; BMI 30.7
[2023-08-09 11:00] VITALS: BP 115/71; PULSE 85; RESP 21; O2SAT 93
[2023-08-09 11:30] VITALS: BP 113/68; PULSE 83; RESP 16; O2SAT 95
--- NOTE | 2023-08-09 11:37 | ED.RECABL ---
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 She received chemotherapy last week for three days and is due again next week. She presented to the ED yesterday for fevers. She was found to have a UTI and was sent out on PO levofloxacin after a discussion with her oncologist (Dr Ortega). Her blood cultures and urine culture have resulted as positive for gram positive cocci. She was called back to ED. MD complaint: other (positive blood cultures from 08/08.) Description of abnormal result: Positive blood cultures 2/2 GPC. Related Data Home Medications Medication Instructions Recorded Confirmed acetaminophen 650 mg 650 mg PO Q12H 04/13/22 07/05/23 tablet,extended release amlodipine 5 mg tablet 5 mg PO DAILY 04/13/22 07/05/23 levothyroxine 100 mcg tablet 100 mcg PO DAILY 04/13/22 07/05/23 ibuprofen 200 mg tablet 400 mg PO Q8H PRN pain 02/14/23 07/05/23 gabapentin 100 mg capsule 100 mg PO BEDTIME 07/05/23 07/05/23 Previous Rx's Medication Instructions Recorded naloxone 4 mg/actuation nasal spray 4 mg intranasal Q3M PRN opioid 05/30/23 overdose #2 ea oxycodone 5 mg tablet 5 mg PO Q6H PRN pain #7 tabs 06/07/23 dexamethasone 2 mg tablet 4 mg PO BID #55 tabs 06/08/23 tramadol 50 mg tablet 50 mg PO BID PRN pain #60 tabs 06/13/23 levofloxacin 750 mg tablet 750 mg PO DAILY 4 days #4 tabs 08/08/23 Allergies Allergy/AdvReac Type Severity Reaction Status Date / Time No Known Drug Allergies Allergy Verified 08/09/23 10:53 Review of Systems Review of Systems Narrative: All else reviewed and otherwise unremarkable except as noted on the H&P. Denies pain, dyspnea, constipation or other concerns. Patient History Medical History Anxiety Arthritis Atherosclerosis of coronary artery Cervical radiculopathy Cervicalgia Elevated coronary artery calcium score HTN (hypertension) Hyperglycemia Hyperlipidemia Hyperparathyroidism Knee pain Low back pain Lumbar radiculopathy Lumbar spondylosis Lymphadenopathy Malaise and fatigue Nicotine abuse ROHAN (obstructive sleep apnea) Paresthesia and pain of both upper extremities Paresthesia of foot, bilateral Peripheral neuralgia Poor balance Serum calcium elevated Shortness of breath Shoulder pain, bilateral Sleep apnea Small cell lung cancer Smoker Spondylolisthesis Ulnar nerve entrapment Surgical History H/O carpal tunnel repair (~2002) History of appendectomy (1959) History of bunionectomy (~1997) History of endoscopy History of removal of Port-a-Cath (10/28/22) Hx of eye surgery (~2010) Total knee replacement status Social History household members: family and children Smoking Status: Current every day smoker alcohol intake: current Smoking Status: Current every day smoker alcohol intake frequency: 0-2 drinks per day Substance Use Type: does not use Exam Initial Vital Signs Initial Vital Signs: Vital Signs Temperature 98.3 F 08/09/23 10:53 Pulse Rate 89 08/09/23 10:53 Respiratory Rate 18 08/09/23 10:53 Blood Pressure 118/74 08/09/23 10:53 Pulse Oximetry 95 08/09/23 10:53 Oxygen Delivery Method Room Air 08/09/23 10:53 The patient is awake and in NAD. Normal speech and mentation. Normal judgement, and calm affect. Head is atraumatic and EOMI. Anicteric sclera. Oropharynx is moist. Neck is supple and trachea is midline. Lungs are CTA, with normal rate and effort. Heart is RRR, without murmur, gallop, or rub. Abdomen is soft, NT and ND. Extremities are free of edema. Good arm pulses. Good leg pulses. Skin is free of rash or lesions. Joints are free of swelling or deformity. Back with normal ROM. Course Orders Ordered: ED Orders 08/09/23 10:38 Basic Metabolic Panel Stat Blood Culture Stat Complete Blood Count AUTO DIFF Stat Lactate (Lactic Acid) Stat Procalcitonin Stat Acetaminophen (Acetaminophen 325 Mg Tablet) 650 mg PO Q6H PRN PRN Reason: Fever/Mild Pain (1-3) Calcium Carbonate (Calcium Carbonate 500 Mg Tab) 1,000 mg PO Q4HR PRN PRN Reason: Dyspepsia Heparin Sodium (Porcine) (Heparin 5,000 Unit/Ml Vial) 5,000 unit SUBCUT BID BASIL Sodium Chloride (Normal Saline 0.45%) 1,000 mls @ 100 mls/hr IV CONT BASIL Magnesium Hydroxide (Magnesium Hydroxide 30 Ml Udc) 30 ml PO DAILY PRN PRN Reason: Constipation Naloxone HCl (Naloxone 0.4 Mg/Ml Vial) 0.2 mg IV Q2MIN PRN PRN Reason: Opiate Reversal Discontinued Medications Cefepime HCl 2 gm/ Sodium (Chloride) 100 mls @ 200 mls/hr IV NOW ONE Stop: 08/09/23 10:39 Discharge Plan Departure Patient Disposition: Admitted As Inpatient Clinical Impression: Bacteremia, UTI (urinary tract infection), Lung cancer
--- NOTE | 2023-08-09 11:44 | PC.NURSE ---
ABX delayed due to needing to access port and get second set of blood cultures prior to start of Abx.
[2023-08-09 11:46] LABS: Hematocrit 33.9 % (36-46); Hemoglobin 11.6 g/dL (12.0-16.0); Mean Corpuscular HGB Conc 34.3 % (30-36); Mean Corpuscular Hemoglobin 31.1 PG (26-34); Mean Corpuscular Volume 90.7 fL (80-100); Red Blood Cell Count 3.73 X10^6/uL (4.0-5.2); Red Cell Distribution Width 14.7 % (11.6-14.8)
--- NOTE | 2023-08-09 11:56 | P.HP_ITS ---
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 She received chemotherapy last week for three days and is due again next week. She presented to the ED yesterday for fevers. She was found to have a UTI and was sent out on PO levofloxacin after a discussion with her oncologist (Dr Ortega). Her blood cultures and urine culture have resulted as positive for gram positive cocci. She was called back to ED. MD complaint: other (positive blood cultures from 08/08.) Description of abnormal result: Positive blood cultures 2/2 GPC She denies urinary symptoms, fevers over night or pain. She says she has not felt ill. She denies abdomen pain or diarrhea. She is chronically weak and spends much of her time in bed. She uses a commode for toileting. She denies headaches or new confusion. She also denies rigors. [facility] Medical History Anxiety Arthritis Atherosclerosis of coronary artery Cervical radiculopathy Cervicalgia Elevated coronary artery calcium score HTN (hypertension) Hyperglycemia Hyperlipidemia Hyperparathyroidism Knee pain Low back pain Lumbar radiculopathy Lumbar spondylosis Lymphadenopathy Malaise and fatigue Nicotine abuse ROHAN (obstructive sleep apnea) Paresthesia and pain of both upper extremities Paresthesia of foot, bilateral Peripheral neuralgia Poor balance Serum calcium elevated Shortness of breath Shoulder pain, bilateral Sleep apnea Small cell lung cancer Smoker Spondylolisthesis Ulnar nerve entrapment Surgical History H/O carpal tunnel repair (~2002) History of appendectomy (1959) History of bunionectomy (~1997) History of endoscopy History of removal of Port-a-Cath (10/28/22) Hx of eye surgery (~2010) Total knee replacement status Social History household members: family and children Smoking Status: Current every day smoker alcohol intake: former Meds Home Medications and Allergies Home Medications Medication Instructions Recorded Confirmed Type acetaminophen 650 mg 650 mg PO Q12H 04/13/22 08/09/23 History tablet,extended release amlodipine 5 mg tablet 5 mg PO DAILY 04/13/22 08/09/23 History levothyroxine 100 mcg tablet 100 mcg PO DAILY 04/13/22 08/09/23 History ibuprofen 200 mg tablet 400 mg PO Q8H PRN pain 02/14/23 08/09/23 History oxycodone 5 mg tablet 5 mg PO Q6H PRN pain #7 tabs 06/07/23 08/09/23 Rx dexamethasone 2 mg tablet 4 mg PO BID #55 tabs 06/08/23 08/09/23 Rx gabapentin 100 mg capsule 100 mg PO BEDTIME PRN Pain (Scale 07/05/23 08/09/23 History Score 4-6) Allergies Allergy/AdvReac Type Severity Reaction Status Date / Time No Known Drug Allergies Allergy Verified 08/09/23 10:53 Review of Systems Review of Systems Narrative: All else reviewed and otherwise unremarkable except as noted on the H&P. Denies pain, dyspnea, constipation or other concerns. Exam Vital Signs (past 8 hours): - 08/09/23 10:53 08/09/23 11:00 08/09/23 11:30 Temperature 98.3 F Pulse Rate 89 85 83 Respiratory Rate 18 21 16 Blood Pressure 118/74 115/71 113/68 Pulse Oximetry 95 93 95 Oxygen Delivery Method Room Air Room Air Room Air Oxygen Delivery Method Room Air Narrative Exam Narrative: The patient is awake and in NAD. Normal speech and mentation. Normal judgement, and calm affect. Hard of hearing. Head is atraumatic and EOMI. Anicteric sclera. Oropharynx is moist. Neck is supple and trachea is midline. Lungs are CTA, with normal rate and effort. Heart is RRR, without murmur, gallop, or rub. Abdomen is soft, NT and ND. Extremities are free of edema. Good arm pulses. Good leg pulses. Skin is free of rash or lesions. Joints are free of swelling or deformity. Back with normal ROM. Objective Imaging Chest x-ray: My impression: Reviewed and appears clear to me. Radiologist's impression: IMPRESSION:? Finding is concerning for small left infrahilar infiltrate .? Clinical correlation and follow-up is recommended.? CT scan - head: Radiologist's impression: 1. Known metastatic disease, primarily involving the cerebellum, or much more easily identifiable on the MRI from 2.5 months ago. ? 2. No acute hemorrhage or stroke or significant vasogenic edema or mass effect noted. ? Comment:? Consider nonemergent brain MRI with without contrast to identify progression or improvement in metastatic lesions.? Labs 08/09/23 11:23 08/09/23 11:23 Assessment & Plan Assessment & Plan narrative: 1. Bacteremia (GPC), POA and active. -start vancomycin and follow blood and urine cultures. -she has a port. -UA has matching prelim culture. 2. Urinary tract infection, POA and active. -as above, follow cultures. 3. Neutropenia, POA and active -dw oncologist (Jordan), Granix daily. 4. Thrombocytopenia, POA and active. -monitor for bleeding. -transfuse for PLT less than 10k. 3. Small Cell Lung Cancer with ORTHODONTIC LABORATORY TECHNICIAN metastasis. 4. Hyponatremia, POA and active. 5. ROHAN, POA and stable. 6. Tinea corporis (axilla), POA and active. -nystatin powder BID Time Spent With Patient Time with patient: 30 to 49 minutes with 50% spent counseling/coordinating care Quality MIPS - Admit I confirm the patient?s Advance Care Plan is present, Code status is documented, Surrogate decision maker is in patient?s record [If Yes, STOP here]: Yes
[2023-08-09 11:57] LABS: Lactate (Lactic Acid) 0.8 mmol/L (0.7-2.1)
[2023-08-09 12:00] VITALS: BP 125/74; PULSE 83; RESP 17; TEMP 36.6; O2SAT 95
[2023-08-09 12:01] LABS: BUN Creatinine Ratio 26.4 (6-22); Blood Urea Nitrogen 14 mg/dL (7-17); Calcium 9.7 mg/dL (8.4-10.2); Carbon Dioxide 27 mmol/L (22-32); Chloride 101 mmol/L (98-107); Estimated Glomerular Filt Rate > 60 mL/min (>60); Glucose 100 mg/dL (80-110); HEMOLYSIS < 15 (0-50); Potassium 3.6 mmol/L (3.4-5.1); Sodium 131 mmol/L (137-145)
[2023-08-09 12:10] LABS: Add Manual Diff / Slide Review YES; Platelet Count 16 X10^3/uL (150-400); White Blood Cell Count 0.6 X10^3/uL (4.5-11.0)
[2023-08-09 12:15] LABS: Procalcitonin 0.29 ng/mL (<0.5)
[2023-08-09 12:21] LABS: Basophils Percent Manual 1.7 % (0-1); Lymphocytes Percent Manual 13.3 % (25-45); Neutrophils Absolute Manual 510 /uL (3000-5900); Platelet Estimate Decr; RBC Morphology Normal Morphology; Total Cells Counted 60
[2023-08-09] MEDS: CEFEPIME 2 GM in SODIUM CHLORIDE 0.9% 100 ML IV ×2 (12:40→23:56)
[2023-08-09] MEDS: SODIUM CHLORIDE 0.45% 1,000 ML 100 ML IV ×2 (12:40→23:55)
--- NOTE | 2023-08-09 13:00 | PC.NURSE ---
Pt to room 207 via gurney from ER. Pt able to transfer to bed with assist. Pt is awake, alert, and oriented. Denies pain, nausea, or shortness of breath. Her Caregiver Rachna is at the bedside. Port has been accessed by ER and IVF/ABX infusing as ordered. Oriented Pt to room, call light, bed controls, and tv controls. Bed alarm on for safety. Request made for Caregiver to bring in Pt's POLST form.
[2023-08-09] MEDS: NICOTINE 7 MG PATCH TOP (13:12)
[2023-08-09] MEDS: VANCOMYCIN 2,000 MG/400 ML PIGGYBACK 200 MG IV (13:16)
[2023-08-09] MEDS: NYSTATIN POWDER 15GM 1 APPLIC TOP (15:20)
[2023-08-09] MEDS: FILGRASTIM-AAFI 300 MCG/0.5 ML SYRINGE SUBCUT (15:20)
[2023-08-09 16:00] VITALS: BP 123/72; PULSE 79; RESP 17; TEMP 37.1; O2SAT 96
[2023-08-09] MEDS: OXYCODONE IR 5 MG TABLET PO ×2 (16:05→23:56)
[2023-08-09 20:00] VITALS: BP 111/65; PULSE 83; RESP 18; TEMP 36.6; O2SAT 94
[2023-08-10] VITALS (10 sets, daily range): BP systolic 113–127; BP diastolic 65–76; PULSE 55–76; RESP 18–20; TEMP 36–36.8; O2SAT 93–96
[2023-08-10] MEDS: VANCOMYCIN 1,000 MG/200 ML PIGGYBACK 133.333 MG IV ×2 (01:52→13:18)
[2023-08-10 05:46] LABS: BUN Creatinine Ratio 22.2 (6-22); Blood Urea Nitrogen 12 mg/dL (7-17); Calcium 9.1 mg/dL (8.4-10.2); Carbon Dioxide 22 mmol/L (22-32); Chloride 102 mmol/L (98-107); Estimated Glomerular Filt Rate > 60 mL/min (>60); Glucose 79 mg/dL (80-110); HEMOLYSIS < 15 (0-50); Potassium 3.4 mmol/L (3.4-5.1); Sodium 127 mmol/L (137-145)
[2023-08-10] MEDS: OXYCODONE IR 5 MG TABLET PO ×3 (06:18→22:36)
[2023-08-10 06:24] LABS: Hematocrit 30.1 % (36-46); Hemoglobin 10.4 g/dL (12.0-16.0); Mean Corpuscular HGB Conc 34.4 % (30-36); Mean Corpuscular Hemoglobin 31.1 PG (26-34); Mean Corpuscular Volume 90.3 fL (80-100); Red Blood Cell Count 3.34 X10^6/uL (4.0-5.2); Red Cell Distribution Width 14.5 % (11.6-14.8)
[2023-08-10 06:28] LABS: Platelet Count 7 X10^3/uL (150-400)
[2023-08-10 06:30] LABS: Add Manual Diff / Slide Review SLIDE REVIEW; White Blood Cell Count 0.3 X10^3/uL (4.5-11.0)
[2023-08-10 07:03] LABS: Platelet Estimate Decreased on smear; RBC Morphology Normal Morphology
[2023-08-10] MEDS: dexAMETHasone 1 MG TABLET 4 MG PO ×2 (08:55→21:38)
[2023-08-10] MEDS: MAGNESIUM HYDROXIDE 30 ML UDC PO (08:55)
[2023-08-10] MEDS: NICOTINE 7 MG PATCH TOP (08:57)
[2023-08-10] MEDS: LEVOTHYROXINE 100 MCG TABLET PO (08:57)
[2023-08-10] MEDS: FILGRASTIM-AAFI 300 MCG/0.5 ML SYRINGE SUBCUT (09:36)
[2023-08-10] MEDS: POTASSIUM CHLORIDE 20 MEQ TAB 40 MEQ PO (09:36)
[2023-08-10] MEDS: ACETAMINOPHEN 325 MG TABLET 650 MG PO (10:26)
--- NOTE | 2023-08-10 10:35 | P.PN_ITS ---
Subjective Subjective Interval history: She is doing well today. Denies fevers, dyspnea, pain or confusion. PLT 7, transfusion ordered. No bleeding symptoms. Dr Ortega oncologist ([facility]) aware of admission. Exam Vital Signs (past 8 hours): - 08/10/23 04:00 08/10/23 09:00 08/10/23 10:18 Temperature 98 F 98.2 F Pulse Rate 74 75 Respiratory Rate 20 18 Blood Pressure 127/76 113/73 Pulse Oximetry 95 95 95 Oxygen Delivery Method Room Air Oxygen Flow Rate 0 Oxygen Delivery Method Room Air Oxygen Flow Rate 0 Narrative Exam Narrative: NAD, normal speech and calm. Head wrapped with cover. Atraumatic head, EOMI. Neck supple and midline trachea. Lungs CTA, normal rate and effort. Heart RRR, without murmur, gallop, or rub. Abdomen Soft, NT, ND No leg edema. No skin rash. Objective Labs 08/10/23 05:23 08/10/23 05:23 Labs: Laboratory Results - last 24 hr 08/09/23 08/09/23 08/09/23 11:23 11:23 11:23 WBC 0.6 L* D RBC 3.73 L Hgb 11.6 L Hct 33.9 L MCV 90.7 MCH 31.1 MCHC 34.3 RDW 14.7 Plt Count 16 L* Neut % (Auto) Not Reportable Lymph % (Auto) Not Reportable [place] % (Auto) Not Reportable Eos % (Auto) Not Reportable Baso % (Auto) Not Reportable Lymph # (Auto) Not Reportable [place] # (Auto) Not Reportable Baso # (Auto) Not Reportable Total Counted 60 Seg Neutrophils % 85.0 H Lymphocytes % (Manual) 13.3 L D Basophils % (Manual) 1.7 H Neutrophils # (Manual) 510 L Platelet Estimate Decr RBC Morphology Normal morphology Sodium 131 L Potassium 3.6 Chloride 101 Carbon Dioxide 27 BUN 14 Creatinine 0.53 Estimated GFR > 60 BUN/Creatinine Ratio 26.4 H Glucose 100 Lactate 0.8 Calcium 9.7 Procalcitonin 0.29 08/10/23 08/10/23 05:23 05:23 WBC 0.3 L* RBC 3.34 L Hgb 10.4 L Hct 30.1 L MCV 90.3 MCH 31.1 MCHC 34.4 RDW 14.5 Plt Count 7 L* Neut % (Auto) Not Reportable Lymph % (Auto) Not Reportable [place] % (Auto) Not Reportable Eos % (Auto) Not Reportable Baso % (Auto) Not Reportable Lymph # (Auto) Not Reportable [place] # (Auto) Not Reportable Baso # (Auto) Not Reportable Total Counted Seg Neutrophils % Lymphocytes % (Manual) Basophils % (Manual) Neutrophils # (Manual) Platelet Estimate Decreased on smear RBC Morphology Normal morphology Sodium 127 L Potassium 3.4 Chloride 102 Carbon Dioxide 22 BUN 12 Creatinine 0.54 Estimated GFR > 60 BUN/Creatinine Ratio 22.2 H Glucose 79 L Lactate Calcium 9.1 Procalcitonin [facility] Medical History Anxiety Arthritis Atherosclerosis of coronary artery Cervical radiculopathy Cervicalgia Elevated coronary artery calcium score HTN (hypertension) Hyperglycemia Hyperlipidemia Hyperparathyroidism Knee pain Low back pain Lumbar radiculopathy Lumbar spondylosis Lymphadenopathy Malaise and fatigue Nicotine abuse ROHAN (obstructive sleep apnea) Paresthesia and pain of both upper extremities Paresthesia of foot, bilateral Peripheral neuralgia Poor balance Serum calcium elevated Shortness of breath Shoulder pain, bilateral Sleep apnea Small cell lung cancer Smoker Spondylolisthesis Ulnar nerve entrapment Surgical History H/O carpal tunnel repair (~2002) History of appendectomy (1959) History of bunionectomy (~1997) History of endoscopy History of removal of Port-a-Cath (10/28/22) Hx of eye surgery (~2010) Total knee replacement status Social History household members: family and children Smoking Status: Current every day smoker alcohol intake: former Assessment & Plan Assessment & Plan narrative: 1. Bacteremia (Staph lugdunensis 1/2, strept C 1/), POA and active. -cont vancomycin and follow blood and urine cultures. -she has a port. -UA has matching prelim culture. -has a left chest port. No cultures drawn from port. - dw ID once cultures finalize. 2. Urinary tract infection (strept C), POA and active. -as above, follow cultures. 3. Neutropenia (post chemo), POA and active - dw oncologist (Jordan), Granix 300 sq daily. - worse on 08/10 - no fevers. - cont antibiotics. 4. Thrombocytopenia (post chemo), POA and active. -monitor for bleeding. -transfuse for PLT less than 10k. - 7 on 08/10. - transfuse 1 PLT today. 3. Small Cell Lung Cancer with INNOVATIONS PARAPROFESSIONAL metastasis. 4. Hyponatremia (127) , POA and active. 5. ROHAN, POA and stable. 6. Tinea corporis (axilla), POA and active. - nystatin powder BID Time Spent With Patient Time with patient: 30 to 49 minutes with 50% spent counseling/coordinating care Quality VTE Deep Vein Thrombosis/Pulmonary Embolism Present on Admission: No
[2023-08-10] MEDS: NYSTATIN POWDER 15GM 1 APPLIC TOP (10:37)
[2023-08-10] MEDS: CEFEPIME 2 GM in SODIUM CHLORIDE 0.9% 100 ML IV (11:57)
[2023-08-10] MEDS: SODIUM CHLORIDE 0.45% 1,000 ML 100 ML IV ×2 (11:57→21:41)
--- NOTE | 2023-08-10 13:04 | CM.DANOTE ---
DCP Assessment Note: Patient is a 73yo F here following bacteremia/UTI/palliative lung cancer care. PCP Myah Ny Payer Medicare and [facility] SPORT SHOE SPIKE ASSEMBLER reviewed EMR. From RN, patient recently filled out POLST/no code paperwork. RN thinks it may be appropriate to have goal of care conversation with patient at this time. RN reports patient will likely d/c 9.30. SPORT SHOE SPIKE ASSEMBLER entered room and introduced self and role. Patient resting in bed and appeared A/Ox4. Patient lives at home in [place] with 8 family members, including daughter and son and their children. Daughter Elle ([phone]) is patient's DPOA, per her verbal report. Patient reports her daughter Elle has a friend that is a nurse that comes in and helps out with her care occasionally but no formal caregiver. Patient has a walker, shower seat, toilet, and lift bed at home. Patient does not drive and family is able to provide transport home whenever d/c occurs. Patient has never used HH services in the past and is open to it if needed but did not want me to send off referral at this time. No verbal preference for agency. Patient reports she has not yet had a goals of care conversation with a doctor. Patient did not seem open to discussion re: Hospice as evidenced by agitated body language. Plan: d/c plan pending POC. Plan 1) home with family support Plan 2) home with HH, referral needed Plan 3) home with Hospice, referral needed. CM team will continue to follow closely pending goals of care conversation and POC. REED Cortes Discharge Planning/Care Management CM Discharge Assessment Start: 08/10/23 12:49 Freq: Status: Active Protocol: Document 08/10/23 12:49 (Rec: 08/10/23 13:04 [id number]) Discharge Planning Assessment Assigned [facility] RE[facility] [place] DPOA/Assigned Designee Name Elle Duvall (daughter) Contact Information [phone] Advance Directives? Yes: Advance Directive Advance Directives on File No History Provided By Patient,Medical Record Prior Living Arrangements House Household Members family,children Type of transporation used prior to Relies on Others admit Independent with ADL's Yes Is patient alert and oriented? Yes Needs Assistance With Meal Prep,Managing Medications ,Home Chores / Shopping DME Already Rented / Owned Bath Bench,FWW / Walker, Bedside Commode,Other Comment Lift bed at home Comment Potential hospice referral will be needed Discharge Plan Home Transportation Arrangement family in POV Additional Comment Hospice ref may be needed pending POC. CM team will continue to follow closely. Whiteboard Updated in Patient Room with Yes name and ext. # of [facility] Review Status In Process Next Review Type Continued Stay Review
[2023-08-10 17:25] LABS: MRSA (Nasal) PCR Not Detected (Not Detect)
[2023-08-11] VITALS (8 sets, daily range): BP systolic 106–133; BP diastolic 56–77; PULSE 55–62; RESP 16–20; TEMP 36–36.4; O2SAT 93–96
[2023-08-11] MEDS: CEFEPIME 2 GM in SODIUM CHLORIDE 0.9% 100 ML IV ×2 (00:17→12:11)
[2023-08-11 01:25] LABS: Vancomycin Trough 9.9 ug/mL (10-20)
[2023-08-11] MEDS: VANCOMYCIN 1,000 MG/200 ML PIGGYBACK 133.333 MG IV (02:01)
[2023-08-11] MEDS: VANCOMYCIN TROUGH 1 REQUEST MISC (02:31)
[2023-08-11] MEDS: VANCOMYCIN PEAK 1 REQUEST MISC (03:58)
[2023-08-11 04:01] LABS: BUN Creatinine Ratio 18.8 (6-22); Blood Urea Nitrogen 9 mg/dL (7-17); Calcium 9.7 mg/dL (8.4-10.2); Carbon Dioxide 21 mmol/L (22-32); Chloride 104 mmol/L (98-107); Estimated Glomerular Filt Rate > 60 mL/min (>60); Glucose 107 mg/dL (80-110); HEMOLYSIS < 15 (0-50); Potassium 4.2 mmol/L (3.4-5.1); Sodium 131 mmol/L (137-145)
[2023-08-11 04:14] LABS: Vancomycin Peak 28.2 ug/mL (20-40)
[2023-08-11 05:55] LABS: Hematocrit 30.2 % (36-46); Hemoglobin 10.3 g/dL (12.0-16.0); Mean Corpuscular Hemoglobin 30.6 PG (26-34); Mean Corpuscular Volume 89.9 fL (80-100); Red Blood Cell Count 3.36 X10^6/uL (4.0-5.2); Red Cell Distribution Width 14.3 % (11.6-14.8)
[2023-08-11 05:57] LABS: White Blood Cell Count 0.3 X10^3/uL (4.5-11.0)
[2023-08-11 05:59] LABS: Platelet Count 15 X10^3/uL (150-400)
[2023-08-11] MEDS: OXYCODONE IR 5 MG TABLET PO ×4 (08:13→21:36)
[2023-08-11] MEDS: NICOTINE 7 MG PATCH TOP (08:14)
[2023-08-11] MEDS: LEVOTHYROXINE 100 MCG TABLET PO (08:14)
[2023-08-11] MEDS: NYSTATIN POWDER 15GM 1 APPLIC TOP (08:17)
--- NOTE | 2023-08-11 09:16 | P.PN_ITS ---
Subjective Subjective Interval history: Patient feeling much better today. Eager to go home soon. Exam Vital Signs (past 8 hours): - 08/11/23 05:44 08/11/23 07:50 08/11/23 08:00 Temperature 97.5 F L Pulse Rate 62 55 L Respiratory Rate 20 16 Blood Pressure 131/70 130/73 Pulse Oximetry 96 96 Oxygen Delivery Method Room Air Oxygen Flow Rate 0 Oxygen Delivery Method Room Air Oxygen Flow Rate 0 Narrative Exam Narrative: NAD, normal speech and calm. Head wrapped with cover. Atraumatic head, EOMI. Neck supple and midline trachea. Lungs CTA, normal rate and effort. Port in L chest without erythema, warmth or fluctuance. Heart RRR, without murmur, gallop, or rub. Abdomen Soft, NT, ND No leg edema. No skin rash. Objective Labs 08/11/23 05:40 08/11/23 03:40 Labs: Laboratory Results - last 24 hr 08/10/23 08/10/23 08/11/23 10:10 Unknown 00:50 WBC RBC Hgb Hct MCV MCH MCHC RDW Plt Count Neut % (Auto) Lymph % (Auto) [place] % (Auto) Eos % (Auto) Baso % (Auto) Neut # (Auto) Lymph # (Auto) [place] # (Auto) Eos # (Auto) Baso # (Auto) Sodium Potassium Chloride Carbon Dioxide BUN Creatinine Estimated GFR BUN/Creatinine Ratio Glucose Calcium Nasal Screen MRSA (PCR) Not detected Vancomycin Peak Vancomycin Trough 9.9 L Blood Type A Negative 08/11/23 08/11/23 08/11/23 03:40 03:40 05:40 WBC 0.3 L* RBC 3.36 L Hgb 10.3 L Hct 30.2 L MCV 89.9 MCH 30.6 MCHC 34.0 RDW 14.3 Plt Count 15 L* Neut % (Auto) Cancelled Lymph % (Auto) Cancelled [place] % (Auto) Cancelled Eos % (Auto) Cancelled Baso % (Auto) Cancelled Neut # (Auto) Cancelled Lymph # (Auto) Cancelled [place] # (Auto) Cancelled Eos # (Auto) Cancelled Baso # (Auto) Cancelled Sodium 131 L Potassium 4.2 Chloride 104 Carbon Dioxide 21 L BUN 9 Creatinine 0.48 L Estimated GFR > 60 BUN/Creatinine Ratio 18.8 Glucose 107 Calcium 9.7 Nasal Screen MRSA (PCR) Vancomycin Peak 28.2 Vancomycin Trough Blood Type [facility] Medical History Anxiety Arthritis Atherosclerosis of coronary artery Cervical radiculopathy Cervicalgia Elevated coronary artery calcium score HTN (hypertension) Hyperglycemia Hyperlipidemia Hyperparathyroidism Knee pain Low back pain Lumbar radiculopathy Lumbar spondylosis Lymphadenopathy Malaise and fatigue Nicotine abuse ROHAN (obstructive sleep apnea) Paresthesia and pain of both upper extremities Paresthesia of foot, bilateral Peripheral neuralgia Poor balance Serum calcium elevated Shortness of breath Shoulder pain, bilateral Sleep apnea Small cell lung cancer Smoker Spondylolisthesis Ulnar nerve entrapment Surgical History H/O carpal tunnel repair (~2002) History of appendectomy (1959) History of bunionectomy (~1997) History of endoscopy History of removal of Port-a-Cath (10/28/22) Hx of eye surgery (~2010) Total knee replacement status Social History household members: family and children Smoking Status: Current every day smoker alcohol intake: former Assessment & Plan Assessment & Plan narrative: 1. Group C strep bacteremia, POA and active. -blood cultures positive in 2/4 bottles -has a left chest port. No cultures drawn from port. -spoke with ID who recommended 2 weeks of IV rocephin, will follow in ID clinic -LAYOUT MECHANIC arranging outpatient IV abx 2. Urinary tract infection with staph lugdunensis, POA and active. -treated with 3 days of IV vanc 3. Neutropenia (post chemo), POA and active - dw oncologist (Jordan), Granix 300 sq daily. - no fevers. - cont antibiotics. 4. Thrombocytopenia (post chemo), POA and active. -monitor for bleeding. -transfuse for PLT less than 10k. - 7k on 08/10. - transfuse 1 PLT on 08/10. - now 15k 3. Small Cell Lung Cancer with TRANSMISSION SPECIALIST metastasis. 4. Hyponatremia (127) , POA and active. 5. ROHAN, POA and stable. 6. Tinea corporis (axilla), POA and active. - nystatin powder BID Time Spent With Patient Time with patient: 30 to 49 minutes with 50% spent counseling/coordinating care Quality VTE Deep Vein Thrombosis/Pulmonary Embolism Present on Admission: No
[2023-08-11] MEDS: NYSTATIN SUSP 500,000 UNIT/5 ML UDC 500000 UNIT PO ×2 (10:54→21:44)
[2023-08-11] MEDS: ONDANSETRON 4 MG/2 ML INJ IV (10:54)
[2023-08-11] MEDS: DOCUSATE 100 MG CAPSULE PO (10:54)
[2023-08-11] MEDS: ACETAMINOPHEN 325 MG TABLET 650 MG PO (10:54)
[2023-08-11] MEDS: SODIUM CHLORIDE 0.45% 1,000 ML 100 ML IV ×2 (10:54→21:42)
[2023-08-11] MEDS: SENNOSIDES 8.6 MG TABLET PO (10:55)
[2023-08-11] MEDS: AMLODIPINE 5 MG TABLET PO (10:55)
[2023-08-11] MEDS: dexAMETHasone 1 MG TABLET 4 MG PO ×2 (11:00→21:43)
[2023-08-11] MEDS: FILGRASTIM-AAFI 300 MCG/0.5 ML SYRINGE SUBCUT (12:10)
[2023-08-11] MEDS: cefTRIAXone 2,000 MG in SODIUM CHLORIDE 0.9% 100 ML 200 MG IV (14:05)
[2023-08-12] MEDS: OXYCODONE IR 5 MG TABLET PO ×2 (03:57→11:29)
[2023-08-12 04:00] VITALS: BP 155/81; PULSE 52; RESP 20; TEMP 36.3; O2SAT 96
[2023-08-12] MEDS: SODIUM CHLORIDE 0.45% 1,000 ML 100 ML IV (06:42)
[2023-08-12 07:50] VITALS: O2SAT 97
[2023-08-12 08:00] VITALS: BP 145/78; PULSE 57; RESP 18; TEMP 36.4; O2SAT 97
--- NOTE | 2023-08-12 08:20 | CM.DPNOTE ---
Addendum entered by Bibi BradyREED 08/12/23 08:54: ADD: Daughter Elle not [place] Original Note: DCP Note This STOCK RANCH SUPERVISOR requested yesterday to coordinate patient's ongoing IV Ceftriaxone 2g Q24 until 08/23/23. Dr Avalos to follow these orders. Spoke w/patient and her daughter [place] at bedside to review infusion options and get patient's preference. Options include home w/home infusion services, SNF for IV abx or daily infusion at the [facility] at . Patient requested a quote for home infusion services, patient preference is [facility]. Placed call to Zach at [facility], discussed this referral. After review, Zach was able to provide a quote for IV Ceftriaxone which would be approx. $460 weekly. Discussed above with patient and daughter. Daughter encouraged patient to consider coming in to receive daily infusion, daughter or other family member available to drive patient daily. [place] from [facility] that Ceftriaxone infusion will be about half an hour. Patient agreeable to this plan. Placed call to Shae, Oncology. Discussed this patient and her need for outpatient IV abx then faxed Shae a copy of the abx Rx, included ICD codes for Bacteremia, UTI and Lung Cancer per Shae's request. Shae kindly reviewed and placed patient on the infusion schedule for [id number]. Patient is expected to discharge today 08.12.23 and will need to come up to the [facility] for infusion tomorrow and Tuesday for her daily infusion. Will plan to review this DCP with patient and her daughter today. Plan: Discharge expected today, home with family, likely need referral, outpatient infusion of Q24 IV Ceftriaxone 2g, Dr Avalos to follow. CM team following closely for coordination of DCP. [id number]
[2023-08-12 09:13] LABS: Basophils Absolute Auto 0 /uL (0-100); Basophils Percent Auto 0.9 % (0-2); Eosinophils Absolute Auto 0 /uL (0-450); Eosinophils Percent Auto 0.2 % (2-4); Hematocrit 30.7 % (36-46); Hemoglobin 10.7 g/dL (12.0-16.0); Lymphocytes Absolute Auto 300 /uL (1100-4500); Lymphocytes Percent Auto 72.1 % (25-40); Mean Corpuscular HGB Conc 34.8 % (30-36); Mean Corpuscular Hemoglobin 31.2 PG (26-34); Mean Corpuscular Volume 89.8 fL (80-100); Monocytes Absolute Auto 100 /uL (0-900); Monocytes Percent Auto 18.6 % (3-14); Neutrophils Absolute Auto 0 /uL (1500-7000); Neutrophils Percent Auto 8.2 % (50-75); Red Blood Cell Count 3.42 X10^6/uL (4.0-5.2); Red Cell Distribution Width 14.1 % (11.6-14.8)
[2023-08-12 09:21] LABS: BUN Creatinine Ratio 18.9 (6-22); Blood Urea Nitrogen 10 mg/dL (7-17); Calcium 9.8 mg/dL (8.4-10.2); Carbon Dioxide 26 mmol/L (22-32); Chloride 102 mmol/L (98-107); Estimated Glomerular Filt Rate > 60 mL/min (>60); Glucose 110 mg/dL (80-110); HEMOLYSIS < 15 (0-50); Potassium 3.7 mmol/L (3.4-5.1); Sodium 130 mmol/L (137-145)
[2023-08-12 09:28] LABS: White Blood Cell Count 0.4 X10^3/uL (4.5-11.0)
[2023-08-12 09:29] LABS: Platelet Count 17 X10^3/uL (150-400)
[2023-08-12 09:31] LABS: Add Manual Diff / Slide Review SLIDE REVIEW
[2023-08-12] MEDS: NYSTATIN SUSP 500,000 UNIT/5 ML UDC 500000 UNIT PO (09:35)
[2023-08-12] MEDS: NICOTINE 7 MG PATCH TOP (09:35)
[2023-08-12] MEDS: AMLODIPINE 5 MG TABLET PO (09:35)
[2023-08-12] MEDS: dexAMETHasone 1 MG TABLET 4 MG PO (09:35)
[2023-08-12 09:51] LABS: Neutrophils Absolute Manual 64 /uL (3000-5900); Total Cells Counted 100
[2023-08-12 09:53] LABS: Anisocytosis 1+
[2023-08-12] MEDS: FILGRASTIM-AAFI 300 MCG/0.5 ML SYRINGE SUBCUT (11:27)
[2023-08-12] MEDS: ACETAMINOPHEN 325 MG TABLET 650 MG PO (11:28)
[2023-08-12] MEDS: cefTRIAXone 2,000 MG in SODIUM CHLORIDE 0.9% 100 ML 200 MG IV (11:28)
[2023-08-12] MEDS: LEVOTHYROXINE 100 MCG TABLET PO (11:29)
--- NOTE | 2023-08-12 14:09 | CM.DPNOTE ---
DC Note Patient discharging home today with the following: IV Ceftriaxone 2g Q24 (via port) until 08/23. This order was faxed to outpatient infusion- [facility] yesterday. Patient will come in tomorr and Tuesday at 1130 to the acute care floor for her dose. Patient will receive her dose at 1000 on Tuesday in the infusion center. Dr Shultz added Granix SQ 300 mcg daily for neutropenia after consulting with Dr Ortega. According to Alex in Pharmacy, there is plenty of Granix available over the weekend and for a dose on Tuesday. Rx for Granix, labs, w/dx code for Neutropenia, faxed to Alex in pharmacy and to Shae in Oncology (for Tuesday). Requested that BETTY Talley, send referral to [facility] per patient preference. Met w/patient and her daughter Elle to review above, both agreeable to plan. Plan: Discharge home w/family via private auto. IV Ceftriaxone and Granix SQ via outpatient infusion, [facility] for RN/PT/OT XOCHILT
--- NOTE | 2023-08-12 15:39 | P.DS_ITS ---
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 She received chemotherapy last week for three days and is due again next week. She presented to the ED yesterday for fevers. She was found to have a UTI and was sent out on PO levofloxacin after a discussion with her oncologist (Dr Ortega). Her blood cultures and urine culture have resulted as positive for gram positive cocci. She was called back to ED. MD complaint: other (positive blood cultures from 08/08.) Description of abnormal result: Positive blood cultures 2/2 GPC She denies urinary symptoms, fevers over night or pain. She says she has not felt ill. She denies abdomen pain or diarrhea. She is chronically weak and spends much of her time in bed. She uses a commode for toileting. She denies headaches or new confusion. She also denies rigors. Discharge Providers Provider Date of admission: 08/09/23 10:52 Discharge Date: 08/12/23 Primary care physician: YESENIA Navarrete Consults: 08/09/23 12:43 Consult to Dietitian, Adult Routine Comment: Reason For Exam: assess nutrition; recent wt loss 08/11/23 13:08 Consult to [facility] - [facility] [employer] Routine Comment: needs outpatient IV abx 08/12/23 08:58 Consult to Home Health Routine Comment: Reason For Exam: Home health services upon discharge Discharge provider: Rasheed Shultz DO Summary Hospital Course Discharge Diagnosis: 1. Group C strep bacteremia, POA and active. -blood cultures positive in 2/4 bottles -has a left chest port. Original cultures drawn from port. -repeat cultures from peripheral and port neg at 48 hours -spoke with ID who recommended 2 weeks of IV rocephin, will follow-up in ID clinic on 08/15 -[facility] arranging outpatient IV abx 2. Urinary tract infection with staph lugdunensis, POA and active. -treated with 3 days of IV vanc 3. Neutropenia (post chemo), POA and active - oncologist (Jordan), Granix 300 sq daily. - no fevers. - cont antibiotics. -Dr. Ortega recommended continuing daily granix until ANC >500 and uptrending -[facility] arranged patient to get granix with rocephin during her daily infusions and labs to be monitored 4. Thrombocytopenia (post chemo), POA and active. -monitor for bleeding. -transfuse for PLT less than 10k. - 7k on 08/10. - transfuse 1 PLT on 08/10. - now 15k 3. 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 4. Hyponatremia (127) , POA and active. 5. ROHAN, POA and stable. 6. Tinea corporis (axilla), POA and active. -? nystatin powder BID Hospital Course: Admitted for fever of 101F and found to have Group C strep bacteremia and staph lugdunensis UTI. Given 3 days IV vanc and rocephin 2g daily for 2 weeks arranged. Repeat blood culture negative. Patient to get IV abx at infusion center daily and f/up with ID clinic on 08/15. S/w Dr. Ortega who recommended daily granix until ANC >500 and uptrending so this was arranged to be given during IV abx at infusion center. Exam Vital Signs (past 8 hours): - 08/12/23 08:00 Temperature 97.6 F Pulse Rate 57 L Respiratory Rate 18 Blood Pressure 145/78 H Pulse Oximetry 97 Oxygen Delivery Method Room Air Oxygen Flow Rate 0 Narrative Exam Narrative: NAD, normal speech and calm. Head wrapped with cover. Atraumatic head, EOMI. Neck supple and midline trachea. Lungs CTA, normal rate and effort. Port in L chest without erythema, warmth or fluctuance. Heart RRR, without murmur, gallop, or rub. Abdomen Soft, NT, ND No leg edema. No skin rash. Objective Labs 08/12/23 08:50 08/12/23 08:50 Labs: Laboratory Results - last 24 hr 08/12/23 08/12/23 08:50 08:50 WBC 0.4 L* RBC 3.42 L Hgb 10.7 L Hct 30.7 L MCV 89.8 MCH 31.2 MCHC 34.8 RDW 14.1 Plt Count 17 L* Neut % (Auto) 8.2 L Lymph % (Auto) 72.1 H [place] % (Auto) 18.6 H Eos % (Auto) 0.2 L Baso % (Auto) 0.9 Neut # (Auto) 0 L Lymph # (Auto) 300 L [place] # (Auto) 100 Eos # (Auto) 0 Baso # (Auto) 0 Total Counted 100 Seg Neutrophils % 16.0 L Lymphocytes % (Manual) 62.0 H Atypical Lymphs % 4.0 H Monocytes % (Manual) 18.0 H Neutrophils # (Manual) 64 L RBC Morphology See below Anisocytosis 1+ H Sodium 130 L Potassium 3.7 Chloride 102 Carbon Dioxide 26 BUN 10 Creatinine 0.53 Estimated GFR > 60 BUN/Creatinine Ratio 18.9 Glucose 110 Calcium 9.8 PFSH Medical History Anxiety Arthritis Atherosclerosis of coronary artery Cervical radiculopathy Cervicalgia Elevated coronary artery calcium score HTN (hypertension) Hyperglycemia Hyperlipidemia Hyperparathyroidism Knee pain Low back pain Lumbar radiculopathy Lumbar spondylosis Lymphadenopathy Malaise and fatigue Nicotine abuse ROHAN (obstructive sleep apnea) Paresthesia and pain of both upper extremities Paresthesia of foot, bilateral Peripheral neuralgia Poor balance Serum calcium elevated Shortness of breath Shoulder pain, bilateral Sleep apnea Small cell lung cancer Smoker Spondylolisthesis Ulnar nerve entrapment Surgical History H/O carpal tunnel repair (~2002) History of appendectomy (1959) History of bunionectomy (~1997) History of endoscopy History of removal of Port-a-Cath (10/28/22) Hx of eye surgery (~2010) Total knee replacement status Social History household members: family and children Smoking Status: Current every day smoker alcohol intake: former Discharge Plan Discharge Plan Patient Disposition: Home Discharge orders & Medications Prescriptions: Continued oxycodone 5 mg tablet 5 mg PO Q6H PRN (Reason: pain) Qty: 7 0RF Rx Instructions: Take as needed for pain. amlodipine 5 mg Tablet 5 mg PO DAILY levothyroxine 100 mcg Tablet 100 mcg PO DAILY acetaminophen 650 mg Tablet Extended Release 650 mg PO Q12H dexamethasone 2 mg Tablet 4 mg PO BID Qty: 55 0RF Rx Instructions: Take 2 tabs twice daily by mouth x 10days, then 2 tablets daily x5 days, then 1 tablet daily x5 days ibuprofen 200 mg tablet 400 mg PO Q8H PRN (Reason: pain) gabapentin 100 mg capsule 100 mg PO BEDTIME PRN (Reason: Pain (Scale Score 4-6)) Patient Comments: Does not take anymore Follow up/Referrals: Myah Ny, [facility] HE[facility] THERAPIST [Primary Care Provider] - 2 Weeks Other Ambulatory Orders: Referral to: (Schedule) Timeframe: 1 Week Location: Outside Services Ordered By: Rasheed Shultz Visit Report/Discharge Packet Instructions: DI for Heart Failure, DI for Urinary Tract Infection (UTI), DI for Hyponatremia, How to Prevent Falls, DI for Prescription Opioid Use, DI for Implanted Venous Access Port, DI for Neutropenia, DI for Bacteremia-Adult Stand Alone Forms: Patient Portal/API, Stroke Signs & Symptoms Discharge Data Primary Care Provider: Myah Ny Discharges patient from system. Discharge Date/Time: 08/12/23 13:15 Quality VTE Deep Vein Thrombosis/Pulmonary Embolism Present on Admission: No
--- NOTE | 2023-08-12 18:00 | PC.NURSE ---
Discharge: Pt really wants to d/c to home. She talked with MD for a long time and discharge arrangements were made. She will be following up with infectious disease and her regular hcp. She understands how the infusion clinic works but on the weekend she will be coming to the main hospital. Portacth has been left in place, has a brisk blood return. Is only flushing with saline for now due to low plates. Reviewed d/c instructions with pt and dtr since she is so hard of hearing. Questions answered, pt d/c home via auto with dtr.
== END 2023-08-12 13:15 | disposition home or self-care (01) | DRG 689 ==
LOC: ED 10:39 → AC 10:52
PROVIDERS: Student in an Organized Health Care Education/Training Program; Admitting Provider Hospitalist; Emergency Provider Emergency Medicine; Family Provider Family Medicine; PCP Nurse Practitioner Family; Referring Provider Emergency Medicine; Visit Provider Hospitalist
DX: N39.0 Urinary tract infection, site not specified (principal); J18.9 Pneumonia, unspecified organism; E87.1 Hypo-osmolality and hyponatremia; C34.11 Malignant neoplasm of upper lobe, right bronchus or lung; C79.31 Secondary malignant neoplasm of brain; B95.7 Other staphylococcus as the cause of diseases classified elsewhere; B95.4 Other streptococcus as the cause of diseases classified elsewhere; D70.1 Agranulocytosis secondary to cancer chemotherapy; T45.1X5A Adverse effect of antineoplastic and immunosuppressive drugs, initial encounter; D69.59 Other secondary thrombocytopenia; B35.4 Tinea corporis; I10 Essential (primary) hypertension; E21.3 Hyperparathyroidism, unspecified; F17.210 Nicotine dependence, cigarettes, uncomplicated
CPT/HCPCS: 36415; 36430; 70450; 71045; 80048; 80053; 80202; 81001; 83605; 83690; 84145; 85007; 85025; 85027; 86900; 86901; 87040; 87077; 87086; 87147; 87186; 87797; 96374; 99283; 99284; P9016; J0692; J0696; J1642; J2405; J7050; P9035; Q5110

== ENCOUNTER → 2023-08-13 11:54 | Outpatient (CLI) | payer MEDICARE, OTHER, SELFPAY ==
[2023-08-13] MEDS: cefTRIAXone 2,000 MG in SODIUM CHLORIDE 0.9% 100 ML 200 MG IV (12:11)
[2023-08-13] MEDS: FILGRASTIM-AAFI 300 MCG/0.5 ML SYRINGE SUBCUT (12:29)
[2023-08-13 12:33] LABS: Hematocrit 34.3 % (36-46); Hemoglobin 11.9 g/dL (12.0-16.0); Mean Corpuscular HGB Conc 34.7 % (30-36); Mean Corpuscular Hemoglobin 31.2 PG (26-34); Mean Corpuscular Volume 89.8 fL (80-100); Platelet Count 37 X10^3/uL (150-400); Red Blood Cell Count 3.83 X10^6/uL (4.0-5.2); Red Cell Distribution Width 14.2 % (11.6-14.8)
[2023-08-13 12:41] LABS: White Blood Cell Count 1.4 X10^3/uL (4.5-11.0)
[2023-08-13 13:20] LABS: Neutrophils Absolute Manual 252 /uL (3000-5900); Nucleated Red Blood Cells 1 #/Diff; RBC Morphology Normal Morphology; Total Cells Counted 50
[2023-08-13 14:26] VITALS: BP 120/49; PULSE 64; RESP 16; TEMP 37; O2SAT 93
[2023-08-14 12:27] LABS: Hematocrit 31.5 % (36-46); Hemoglobin 10.9 g/dL (12.0-16.0); Mean Corpuscular HGB Conc 34.5 % (30-36); Mean Corpuscular Hemoglobin 31.1 PG (26-34); Mean Corpuscular Volume 90.1 fL (80-100); Platelet Count 54 X10^3/uL (150-400); Red Blood Cell Count 3.49 X10^6/uL (4.0-5.2); Red Cell Distribution Width 14.5 % (11.6-14.8); White Blood Cell Count 4.5 X10^3/uL (4.5-11.0)
[2023-08-14 13:11] LABS: Neutrophils Absolute Manual 2340 /uL (3000-5900); RBC Morphology Normal Morphology; Total Cells Counted 50
[2023-08-14] MEDS: cefTRIAXone 2,000 MG in SODIUM CHLORIDE 0.9% 100 ML 200 MG IV (14:00)
[2023-08-14 14:50] VITALS: BP 121/69; PULSE 67; RESP 16; TEMP 36.9; O2SAT 94
== END ==
PROVIDERS: Family Provider Family Medicine; PCP Nurse Practitioner Family; Referring Provider Student in an Organized Health Care Education/Training Program; Visit Provider Student in an Organized Health Care Education/Training Program
DX: C34.90 Malignant neoplasm of unspecified part of unspecified bronchus or lung (principal); D70.9 Neutropenia, unspecified; R78.81 Bacteremia; N39.0 Urinary tract infection, site not specified
CPT/HCPCS: 85025; 96365; 96372; J0696; Q5110

== ENCOUNTER → 2023-08-14 12:36 | Outpatient (CLI) | payer MEDICARE, OTHER, SELFPAY | PROVIDERS: Family Provider Family Medicine; PCP Nurse Practitioner Family; Referring Provider Student in an Organized Health Care Education/Training Program; Visit Provider Student in an Organized Health Care Education/Training Program | DX: C34.90 Malignant neoplasm of unspecified part of unspecified bronchus or lung (principal); N39.0 Urinary tract infection, site not specified; R78.81 Bacteremia | CPT/HCPCS: 96365; J0696 ==

== ENCOUNTER → 2023-08-21 11:27 | Outpatient (CLI) | payer MEDICARE, OTHER, SELFPAY | PROVIDERS: Family Provider Family Medicine; PCP Nurse Practitioner Family; Referring Provider Student in an Organized Health Care Education/Training Program; Visit Provider Student in an Organized Health Care Education/Training Program | DX: C34.90 Malignant neoplasm of unspecified part of unspecified bronchus or lung (principal); R78.81 Bacteremia; N39.0 Urinary tract infection, site not specified ==

== ENCOUNTER 2023-09-15 16:29 | Emergency (ER) | payer MEDICARE, OTHER, SELFPAY ==
[2023-09-15 17:02] VITALS: BP 109/71; PULSE 76; RESP 16; TEMP 36.8; O2SAT 95; BMI 29.2
--- NOTE | 2023-09-15 17:52 | DI.RAD.S_ITS ---
PROCEDURE: XR ACUTE ABDOMEN SERIES INDICATIONS: constipation, no BM [id number] TECHNIQUE: One view chest and two views of the abdomen were acquired. COMPARISON: None. FINDINGS: Surgical changes and devices: Tunneled left port device is in place. Chest: Mild patchy bibasilar airspace opacities likely representing atelectasis. No focal consolidation. Heart size is normal. No pleural effusions. No pneumoperitoneum. Abdomen: Bowel gas pattern is nonobstructive. Large amount of fecal material seen in the region of the ascending colon. Moderate fecal load in the descending colon. Air is noted in the rectum. No suspicious calcifications. Visualized solid organ contours appear normal. Bones: No suspicious bony lesions. IMPRESSION: 1. Nonobstructive bowel gas pattern with large amount of fecal material seen in the ascending colon with a moderate amount of fecal material noted in the descending colon. Findings are compatible with reported history of constipation. 2. Mild patchy bibasilar airspace opacities favored to represent atelectasis. Dictated by: Teofilo Hutchinson M.D. on 09/15/2023 at 19:20 Approved by: Teofilo Hutchinson M.D. on 09/15/2023 at 19:22
--- NOTE | 2023-09-15 19:21 | ED.GENADULT ---
HPI - General Adult General Chief complaint: Abdominal Pain Stated complaint: Constipation T-10 Time Seen by Provider: 09/15/23 18:06 Source: patient Mode of arrival: Wheelchair Limitations: no limitations History of Present Illness HPI narrative: 73-year-old female. Has a history of metastatic lung cancer. He is currently undergoing chemotherapy. Is here for evaluation of what she thinks is constipation. She is not had a bowel movement approximately 10 days. Several days ago she started taking senna per recommendation of her oncologist. No vomiting. No fevers. No urinary symptoms. They were advised to come to the emergency department for further evaluation by the oncologist office Related Data Home Medications Medication Instructions Recorded Confirmed acetaminophen 650 mg 650 mg PO Q12H 04/13/22 08/09/23 tablet,extended release amlodipine 5 mg tablet 5 mg PO DAILY 04/13/22 08/09/23 levothyroxine 100 mcg tablet 100 mcg PO DAILY 04/13/22 08/09/23 ibuprofen 200 mg tablet 400 mg PO Q8H PRN pain 02/14/23 08/09/23 gabapentin 100 mg capsule 100 mg PO BEDTIME PRN Pain (Scale 07/05/23 08/09/23 Score 4-6) Previous Rx's Medication Instructions Recorded oxycodone 5 mg tablet 5 mg PO Q6H PRN pain #7 tabs 06/07/23 dexamethasone 2 mg tablet 4 mg (2 x 2 mg) PO BID #55 tabs 06/08/23 tramadol 50 mg tablet 50 mg PO BID PRN pain #60 tabs 08/15/23 Allergies Allergy/AdvReac Type Severity Reaction Status Date / Time No Known Drug Allergies Allergy Verified 08/09/23 10:53 Review of Systems Constitutional Constitutional: Reports system reviewed and no additional complaints, except as documented Cardiovascular Cardiovascular: Reports system reviewed and no additional complaints, except as documented Gastrointestinal Gastrointestinal: Reports system reviewed and no additional complaints, except as documented Genitourinary Genitourinary: Reports system reviewed and no additional complaints, except as documented Integumentary/Breasts Skin/Breast: Reports system reviewed and no additional complaints, except as documented Neurologic Neurologic: Reports system reviewed and no additional complaints, except as documented Hematologic/Lymphatic On Anticoagulants: No Patient History Medical History Low back pain Cervical radiculopathy Cervicalgia Lumbar spondylosis Paresthesia and pain of both upper extremities Knee pain Atherosclerosis of coronary artery Lumbar radiculopathy Anxiety ROHAN (obstructive sleep apnea) Spondylolisthesis Hyperlipidemia Hyperparathyroidism Shoulder pain, bilateral Nicotine abuse Ulnar nerve entrapment Lymphadenopathy Poor balance Hyperglycemia Paresthesia of foot, bilateral Peripheral neuralgia Serum calcium elevated Elevated coronary artery calcium score HTN (hypertension) Sleep apnea Arthritis Malaise and fatigue Smoker Shortness of breath Small cell lung cancer Surgical History H/O carpal tunnel repair (~2002) History of appendectomy (1959) History of bunionectomy (~1997) History of endoscopy History of removal of Port-a-Cath (10/28/22) Hx of eye surgery (~2010) Total knee replacement status Social History household members: family and children Smoking Status: Current every day smoker alcohol intake: former Smoking Status: Current every day smoker alcohol intake frequency: 0-2 drinks per day Substance Use Type: does not use Exam Initial Vital Signs Initial Vital Signs: Vital Signs Temperature 98.2 F 09/15/23 17:02 Pulse Rate 76 09/15/23 17:02 Respiratory Rate 16 09/15/23 17:02 Blood Pressure 109/71 09/15/23 17:02 Pulse Oximetry 95 09/15/23 17:02 Oxygen Delivery Method Room Air 09/15/23 17:02 HENMT Head: normal to inspection and normocephalic Resp Effort & Inspection: normal respiratory effort Auscultation: clear to auscultation bilaterally Cardio Rate: regular rate GI Inspection: normal to inspection and non-distended Palpation: soft Skin General: no rashes or lesions noted Neuro General: patient alert, patient awake and moves all extremities Course Orders Ordered: ED Orders 09/15/23 17:52 XR acute abdomen series Stat 09/15/23 19:21 CT abdomen pelvis w con Stat 09/15/23 19:39 Basic Metabolic Panel Stat Complete Blood Count AUTO DIFF Stat Discontinued Medications Hydrocodone Bitart/Acetaminophen (Hydrocodone/Acet 5/325 Tablet) 1 tab PO NOW ONE Stop: 09/15/23 20:39 Last Admin: 09/15/23 20:43 Dose: 1 tab Documented By: YAMINI Heparin Sodium (Porcine) (Heparin 500 Unit/5 Ml Port Flush) 500 unit IV PRN PRN PRN Reason: Flush Last Admin: 09/15/23 22:26 Dose: 500 unit Documented By: YAMINI Sodium Chloride (Normal Saline 0.9%) 1,000 mls @ 500 mls/hr IV BOLUS ONE Stop: 09/15/23 21:20 Last Infusion: 09/15/23 21:48 Dose: Infused Documented By: Admin: 09/15/23 19:51 Dose: 500 mls/hr Documented By: JUDD Vital Signs Vital signs: Vital Signs - 8 hr 09/15/23 17:02 09/15/23 22:21 Temperature 98.2 F 97.9 F Pulse Rate 76 73 Respiratory Rate 16 16 Blood Pressure 109/71 128/71 Pulse Oximetry 95 94 Oxygen Delivery Method Room Air Room Air Medical Decision Making Lab Data Lab results reviewed: Yes I reviewed the patient's lab results. 09/15/23 19:39 09/15/23 19:39 Labs: Lab Results 09/15/23 Range/Units 19:39 WBC 1.0 L* (4.5-11.0) X10^3/uL RBC 2.67 L (4.0-5.2) X10^6/uL Hgb 8.5 L (12.0-16.0) g/dL Hct 24.6 L (36-46) % MCV 92.2 (80-100) fL MCH 32.0 (26-34) PG MCHC 34.7 (30-36) % RDW 15.5 H (11.6-14.8) % Plt Count 34 L* (150-400) X10^3/uL Neut % (Auto) 40.8 L (50-75) % Lymph % (Auto) 47.0 H (25-40) % [place] % (Auto) 7.6 (3-14) % Eos % (Auto) 1.7 L (2-4) % Baso % (Auto) 2.9 H (0-2) % Neut # (Auto) 400 L (1665-0165) /uL Lymph # (Auto) 400 L (5543-8080) /uL [place] # (Auto) 100 (0-900) /uL Eos # (Auto) 0 (0-450) /uL Baso # (Auto) 0 (0-100) /uL Platelet Estimate Decreased on smear RBC Morphology Normal morphology Sodium 131 L (137-145) mmol/L Potassium 3.2 L (3.4-5.1) mmol/L Chloride 98 (98-107) mmol/L Carbon Dioxide 27 (22-32) mmol/L BUN 11 (7-17) mg/dL Creatinine 0.42 L (0.52-1.04) mg/dL Estimated GFR > 60 (>60) mL/min BUN/Creatinine Ratio 26.2 H (6-22) Glucose 91 (80-110) mg/dL Calcium 10.3 H (8.4-10.2) mg/dL Imaging Data CT scan - abdomen/pelvis: Radiologist's Impression: PROCEDURE: CT ABDOMEN PELVIS W CON INDICATIONS: Eval for obstruction TECHNIQUE: After the administration of oral and IV contrast, axial sections were acquired from the lung bases to the pubic symphysis. Coronal and sagittal reformats were performed. For radiation dose reduction, the following was used: automated exposure control, adjustment of mA and/or kV according to patient size. COMPARISON: [facility], CT, CT CHEST ABD PEL W CON, 11/03/2022, 12:23. Outside Film, NM, PET NECK TO MID THIGH, 06/27/2023, 12:50. [facility], CT, CT CHEST ABD PEL W CON, 04/26/2023, 12:00. FINDINGS: Image quality: Excellent. Lung bases: There is a 1.6 x 3.1 cm masslike density in the right lower lobe, new since the last exam. Small nodules are seen in the right lower lobe posterior medially. Heart: No significant findings. ABDOMEN: Liver: Normal size. There are multiple hepatic hypodense lesions consistent with metastases. Compared to the last exam, metastatic lesions in liver are increased in number and size. Gallbladder: There are gallstones. No gallbladder wall thickening or pericholecystic fluid. Biliary ducts: Unremarkable. Pancreas: Unremarkable. Spleen: Normal size. There is a calcified granuloma in spleen. Adrenal Glands: Left adrenal thickening. Kidneys and Ureters: Unremarkable. Stomach and Bowel: Stomach, small bowel loops, and colon are normal in caliber. Diverticulosis without diverticulitis. Peritoneum: Trace intraperitoneal fluid. No free air. Ventral Wall: No hernia. Abdominal Nodes: No retroperitoneal or mesenteric adenopathy by size criteria. Vessels: Aorta and inferior vena cava are normal in size. PELVIS: Pelvic Organs: Unremarkable. Bladder: Unremarkable. Pelvic Nodes: No enlarged lymph nodes. Miscellaneous: No inguinal hernias are seen. Bones: Unremarkable. IMPRESSION: 1. No findings to suggest bowel obstruction. 2. Worsening of hepatic metastasis. 3. A masslike density and several small nodules in the right lower lobe as well. The masslike density is new. An infectious or inflammatory etiology is favored but neoplasm cannot be excluded. 4. Left adrenal thickening, unchanged. No discrete left adrenal mass. 5. Cholelithiasis. 6. Diverticulosis without acute diverticulitis. MDM Narrative Medical decision making narrative: Patient is neutropenic and thrombocytopenic but no signs of active bleeding. She is afebrile. Her abdomen is soft. There was no signs of obstruction. X-ray is consistent with stool burden specifically on the right side. I would a discussion with the patient and family at bedside. We discussed that she should avoid suppositories or enemas given her neutropenia status. We discussed oral laxatives to include MiraLax. There was no indication for surgical consultation. No indication for admission to the hospital. Discharge patient home with return precautions. Patient expressed understanding and agreement plan. Discharge Plan Departure Patient Disposition: Home Clinical Impression: Constipation Instructions: DI for Constipation Activity Restrictions/Additional Instructions: I do recommend that you continue to take all of your medications as directed. I would highly recommend that you consider taking MiraLax. You can purchase this [id number]. You can take it multiple times a day like we discussed. I recommend that you keep all of your scheduled medical appointments. Return to the emergency department for new or worsening symptoms. Prescriptions: No Action tramadol 50 mg tablet 50 mg PO BID PRN (Reason: pain) Qty: 60 1RF oxycodone 5 mg tablet 5 mg PO Q6H PRN (Reason: pain) Qty: 7 0RF Rx Instructions: Take as needed for pain. amlodipine 5 mg Tablet 5 mg PO DAILY levothyroxine 100 mcg Tablet 100 mcg PO DAILY acetaminophen 650 mg Tablet Extended Release 650 mg PO Q12H dexamethasone 2 mg Tablet 4 mg PO BID Qty: 55 0RF Rx Instructions: Take 2 tabs twice daily by mouth x 10days, then 2 tablets daily x5 days, then 1 tablet daily x5 days ibuprofen 200 mg tablet 400 mg PO Q8H PRN (Reason: pain) gabapentin 100 mg capsule 100 mg PO BEDTIME PRN (Reason: Pain (Scale Score 4-6)) Patient Comments: Does not take anymore Referrals: Myah Ny ARNP [Primary Care Provider] - Stand Alone Forms: Patient Portal/API
[2023-09-15] MEDS: SODIUM CHLORIDE 0.9% 1,000 ML 500 ML IV (19:51)
[2023-09-15 19:59] LABS: Add Manual Diff / Slide Review NO; Basophils Absolute Auto 0 /uL (0-100); Basophils Percent Auto 2.9 % (0-2); Eosinophils Absolute Auto 0 /uL (0-450); Eosinophils Percent Auto 1.7 % (2-4); Hematocrit 24.6 % (36-46); Hemoglobin 8.5 g/dL (12.0-16.0); Lymphocytes Absolute Auto 400 /uL (1100-4500); Mean Corpuscular HGB Conc 34.7 % (30-36); Mean Corpuscular Volume 92.2 fL (80-100); Monocytes Absolute Auto 100 /uL (0-900); Monocytes Percent Auto 7.6 % (3-14); Neutrophils Absolute Auto 400 /uL (1500-7000); Neutrophils Percent Auto 40.8 % (50-75); Red Blood Cell Count 2.67 X10^6/uL (4.0-5.2); Red Cell Distribution Width 15.5 % (11.6-14.8)
[2023-09-15 20:05] LABS: Platelet Count 34 X10^3/uL (150-400)
[2023-09-15 20:08] LABS: BUN Creatinine Ratio 26.2 (6-22); Blood Urea Nitrogen 11 mg/dL (7-17); Calcium 10.3 mg/dL (8.4-10.2); Carbon Dioxide 27 mmol/L (22-32); Chloride 98 mmol/L (98-107); Estimated Glomerular Filt Rate > 60 mL/min (>60); Glucose 91 mg/dL (80-110); HEMOLYSIS < 15 (0-50); Potassium 3.2 mmol/L (3.4-5.1); Sodium 131 mmol/L (137-145)
[2023-09-15 20:27] LABS: Platelet Estimate Decreased on smear; RBC Morphology Normal Morphology
[2023-09-15] MEDS: HYDROCODONE/ACET 5/325 TABLET 1 TAB PO (20:43)
[2023-09-15 22:21] VITALS: BP 128/71; PULSE 73; RESP 16; TEMP 36.6; O2SAT 94
== END 2023-09-15 22:40 | disposition home or self-care (01) ==
PROVIDERS: Emergency Provider Emergency Medicine; Family Provider Family Medicine; PCP Nurse Practitioner Family
DX: K59.00 Constipation, unspecified (principal)
CPT/HCPCS: 36415; 74022; 74177; 80048; 85025; 96360; 96361; 99284; J1642; Q9967

== ENCOUNTER 2023-09-25 04:45 | Emergency (ER) | payer MEDICARE, OTHER, SELFPAY ==
[2023-09-25] VITALS (19 sets, daily range): BP systolic 130–167; BP diastolic 62–93; PULSE 80–98; RESP 15–23; TEMP 37; O2SAT 92–97; BMI 29.2
--- NOTE | 2023-09-25 04:52 | ED_ITS ---
HPI - General Adult <Mansi Quiros MD - Last Filed: 09/27/23 03:01> General Chief complaint: Shortness of Breath/Dyspnea Stated complaint: low oxygen/sob/ upset stomach waking up from sleep Time Seen by Provider: 09/25/23 04:52 History of Present Illness HPI narrative: 73-year-old woman with widely metastatic lung cancer including brain liver bones currently on palliative chemotherapy. She was discharged from the hospital on August 09 after admission for urinary tract infection with positive blood cultures for group C strep. She was treated with 2 weeks of IV ceftriaxone through her port. She was also found to have a urinary tract infection with Staph lugdunensis and treated with 3 days of IV vancomycin. Significant neutropenia post vancomycin and was to receive daily Granix until her absolute neutrophil count was greater than 500. Family report that after her 2nd palliative chemo treatment she was weak enough that she was admitted to would be general in August where she stayed for 3 days with significant leukopenia. She presents today with hypoxia significant enough that it was waking her from sleep and when checked at home was in the 82% range. She is increasingly weak but not specifically complaining of any new pain. She needs assistance standing up from the chair and getting into bed Patient presents with her son and daughter. They report that she is DNR/DNI and they have thoroughly that discussion. They do not report that she has had any discussion with palliative Care Services nor with hospice Related Data Home Medications Medication Instructions Recorded Confirmed acetaminophen 650 mg 650 mg PO Q12H 04/13/22 08/09/23 tablet,extended release amlodipine 5 mg tablet 5 mg PO DAILY 04/13/22 08/09/23 levothyroxine 100 mcg tablet 100 mcg PO DAILY 04/13/22 08/09/23 ibuprofen 200 mg tablet 400 mg PO Q8H PRN pain 02/14/23 08/09/23 gabapentin 100 mg capsule 100 mg PO BEDTIME PRN Pain (Scale 07/05/23 08/09/23 Score 4-6) Previous Rx's Medication Instructions Recorded oxycodone 5 mg tablet 5 mg PO Q6H PRN pain #7 tabs 06/07/23 dexamethasone 2 mg tablet 4 mg (2 x 2 mg) PO BID #55 tabs 06/08/23 tramadol 50 mg tablet 50 mg PO BID PRN pain #60 tabs 08/15/23 Allergies Allergy/AdvReac Type Severity Reaction Status Date / Time No Known Drug Allergies Allergy Verified 08/09/23 10:53 Patient History <Mansi Quiros MD - Last Filed: 09/27/23 03:01> Medical History Low back pain Cervical radiculopathy Cervicalgia Lumbar spondylosis Paresthesia and pain of both upper extremities Knee pain Atherosclerosis of coronary artery Lumbar radiculopathy Anxiety ROHAN (obstructive sleep apnea) Spondylolisthesis Hyperlipidemia Hyperparathyroidism Shoulder pain, bilateral Nicotine abuse Ulnar nerve entrapment Lymphadenopathy Poor balance Hyperglycemia Paresthesia of foot, bilateral Peripheral neuralgia Serum calcium elevated Elevated coronary artery calcium score HTN (hypertension) Sleep apnea Arthritis Malaise and fatigue Smoker Shortness of breath Small cell lung cancer Surgical History H/O carpal tunnel repair (~2002) History of appendectomy (1959) History of bunionectomy (~1997) History of endoscopy History of removal of Port-a-Cath (10/28/22) Hx of eye surgery (~2010) Total knee replacement status Social History household members: family and children Smoking Status: Current every day smoker alcohol intake: former Smoking Status: Current every day smoker alcohol intake frequency: 0-2 drinks per day Substance Use Type: does not use Exam <Mansi Quiros MD - Last Filed: 09/27/23 03:01> Initial Vital Signs Initial Vital Signs: Vital Signs Temperature 98.6 F 09/25/23 04:55 Pulse Rate 83 09/25/23 04:55 Respiratory Rate 19 09/25/23 04:55 Blood Pressure 150/78 H 09/25/23 04:55 Pulse Oximetry 93 09/25/23 04:55 Oxygen Delivery Method Room Air 09/25/23 04:55 <Marisol Cavanaugh DO - Last Filed: 09/25/23 13:32> Initial Vital Signs Initial Vital Signs: Vital Signs Temperature 98.6 F 09/25/23 04:55 Pulse Rate 83 09/25/23 04:55 Respiratory Rate 19 09/25/23 04:55 Blood Pressure 150/78 H 09/25/23 04:55 Pulse Oximetry 93 09/25/23 04:55 Oxygen Delivery Method Room Air 09/25/23 04:55 Course <Mansi Quiros MD - Last Filed: 09/27/23 03:01> Orders Ordered: Discontinued Medications Lidocaine HCl (Lidocaine 1% (Pf) 5 Ml) 5 ml INJ NOW ONE Stop: 09/25/23 05:20 Last Admin: 09/25/23 05:59 Dose: 5 ml Documented By: KAVON Vital Signs Vital signs: Vital Signs - 8 hr 09/25/23 05:51 09/25/23 05:54 09/25/23 05:54 Pulse Rate 85 81 Respiratory Rate 18 Blood Pressure 167/87 H Pulse Oximetry 95 96 Oxygen Delivery Method Oxygen Flow Rate 09/25/23 06:00 09/25/23 06:00 09/25/23 06:30 Pulse Rate 82 81 Respiratory Rate 23 19 Blood Pressure 145/93 H Pulse Oximetry 96 96 Oxygen Delivery Method Oxygen Flow Rate 09/25/23 06:58 09/25/23 06:58 09/25/23 07:00 Pulse Rate 80 80 Respiratory Rate 17 17 Blood Pressure 149/92 H Pulse Oximetry 97 97 Oxygen Delivery Method Oxygen Flow Rate 09/25/23 07:00 09/25/23 07:30 09/25/23 08:13 Pulse Rate 82 94 H Respiratory Rate 19 Blood Pressure 157/87 H 140/80 Pulse Oximetry 95 94 Oxygen Delivery Method Oxygen Flow Rate 09/25/23 08:30 09/25/23 08:38 09/25/23 08:38 Pulse Rate 82 80 Respiratory Rate 18 17 Blood Pressure 146/81 H Pulse Oximetry 95 96 Oxygen Delivery Method Oxygen Flow Rate 09/25/23 09:00 09/25/23 09:00 09/25/23 09:30 Pulse Rate 80 82 Respiratory Rate 15 21 Blood Pressure 130/82 Pulse Oximetry 96 95 Oxygen Delivery Method Oxygen Flow Rate 09/25/23 09:30 09/25/23 10:00 09/25/23 10:03 Pulse Rate 98 H Respiratory Rate Blood Pressure 159/81 H 147/90 H Pulse Oximetry 92 Oxygen Delivery Method Nasal Cannula Oxygen Flow Rate 2 09/25/23 10:03 09/25/23 10:30 09/25/23 10:30 Pulse Rate 91 H 83 Respiratory Rate 22 19 Blood Pressure 155/91 H Pulse Oximetry 93 95 Oxygen Delivery Method Nasal Cannula Oxygen Flow Rate 2 09/25/23 11:00 09/25/23 11:00 Pulse Rate 84 Respiratory Rate 21 Blood Pressure 161/84 H Pulse Oximetry 94 Oxygen Delivery Method Oxygen Flow Rate <Marisol Cavanaugh DO - Last Filed: 09/25/23 13:32> Orders Ordered: Discontinued Medications Lidocaine HCl (Lidocaine 1% (Pf) 5 Ml) 5 ml INJ NOW ONE Stop: 09/25/23 05:20 Last Admin: 09/25/23 05:59 Dose: 5 ml Documented By: KAVON Vital Signs Vital signs: Vital Signs - 8 hr 09/25/23 05:51 09/25/23 05:54 09/25/23 05:54 Pulse Rate 85 81 Respiratory Rate 18 Blood Pressure 167/87 H Pulse Oximetry 95 96 Oxygen Delivery Method Oxygen Flow Rate 09/25/23 06:00 09/25/23 06:00 09/25/23 06:30 Pulse Rate 82 81 Respiratory Rate 23 19 Blood Pressure 145/93 H Pulse Oximetry 96 96 Oxygen Delivery Method Oxygen Flow Rate 09/25/23 06:58 09/25/23 06:58 09/25/23 07:00 Pulse Rate 80 80 Respiratory Rate 17 17 Blood Pressure 149/92 H Pulse Oximetry 97 97 Oxygen Delivery Method Oxygen Flow Rate 09/25/23 07:00 09/25/23 07:30 09/25/23 08:13 Pulse Rate 82 94 H Respiratory Rate 19 Blood Pressure 157/87 H 140/80 Pulse Oximetry 95 94 Oxygen Delivery Method Oxygen Flow Rate 09/25/23 08:30 09/25/23 08:38 09/25/23 08:38 Pulse Rate 82 80 Respiratory Rate 18 17 Blood Pressure 146/81 H Pulse Oximetry 95 96 Oxygen Delivery Method Oxygen Flow Rate 09/25/23 09:00 09/25/23 09:00 09/25/23 09:30 Pulse Rate 80 82 Respiratory Rate 15 21 Blood Pressure 130/82 Pulse Oximetry 96 95 Oxygen Delivery Method Oxygen Flow Rate 09/25/23 09:30 09/25/23 10:00 09/25/23 10:03 Pulse Rate 98 H Respiratory Rate Blood Pressure 159/81 H 147/90 H Pulse Oximetry 92 Oxygen Delivery Method Nasal Cannula Oxygen Flow Rate 2 09/25/23 10:03 09/25/23 10:30 11/12/23 10:30 Pulse Rate 91 H 83 Respiratory Rate 22 19 Blood Pressure 155/91 H Pulse Oximetry 93 95 Oxygen Delivery Method Nasal Cannula Oxygen Flow Rate 2 09/25/23 11:00 09/25/23 11:00 Pulse Rate 84 Respiratory Rate 21 Blood Pressure 161/84 H Pulse Oximetry 94 Oxygen Delivery Method Oxygen Flow Rate Medical Decision Making <Mansi Quiros MD - Last Filed: 09/27/23 03:01> Lab Data 09/25/23 05:50 09/25/23 05:50 Labs: Lab Results 09/25/23 09/25/23 Range/Units 05:50 08:21 WBC 8.8 (4.5-11.0) X10^3/uL RBC 2.79 L (4.0-5.2) X10^6/uL Hgb 8.7 L (12.0-16.0) g/dL Hct 25.5 L (36-46) % MCV 91.7 (80-100) fL MCH 31.4 (26-34) PG MCHC 34.2 (30-36) % RDW 17.0 H (11.6-14.8) % Plt Count 311 (150-400) X10^3/uL Neut % (Auto) Not Reportable Lymph % (Auto) Not Reportable [place] % (Auto) Not Reportable Eos % (Auto) Not Reportable Baso % (Auto) Not Reportable Lymph # (Auto) Not Reportable [place] # (Auto) Not Reportable Baso # (Auto) Not Reportable Total Counted 100 Seg Neutrophils % 62.0 (38-70) % Band Neutrophils % 8.0 H (3-7) % Lymphocytes % (Manual) 13.0 L (25-45) % Monocytes % (Manual) 11.0 (2-11) % Metamyelocytes % 4.0 H (-0) % Myelocytes % 2.0 H (-0) % Neutrophils # (Manual) 6160 H (9082-9663) /uL Nucleated RBCs 1 H ( - 0) #/Diff RBC Morphology See below Anisocytosis 1+ H D-Dimer 2274 H (<500) ng/ml Sodium 136 L (137-145) mmol/L Potassium 3.1 L (3.4-5.1) mmol/L Chloride 103 (98-107) mmol/L Carbon Dioxide 28 (22-32) mmol/L BUN 3 L (7-17) mg/dL Creatinine 0.40 L (0.52-1.04) mg/dL Estimated GFR > 60 (>60) mL/min BUN/Creatinine Ratio 7.5 (6-22) Glucose 94 (80-110) mg/dL Lactate 0.9 (0.7-2.1) mmol/L Calcium 9.8 (8.4-10.2) mg/dL Total Bilirubin 0.4 (0.2-1.3) mg/dL AST 32 (14-36) IU/L ALT 13 (<35) IU/L Alkaline Phosphatase 91 (38-126) U/L Troponin I < 0.012 (0.01-0.034) ng/mL Total Protein 5.4 L (6.3-8.2) g/dL Albumin 2.9 L (3.5-5.0) g/dL Globulin 2.5 (1.7-4.1) g/dL Albumin/Globulin Ratio 1.2 (1.0-2.8) Urine Color Yellow Urine Appearance Clear Urine pH 7.0 (4.5-8.0) Ur Specific [place] 1.010 (1.000-1.035) Urine Protein Negative (Negative) Urine Glucose (UA) Negative (Negative) g/dL Urine Ketones Negative (NEGATIVE) Urine Occult Blood Negative (Negative) Urine Nitrate Negative (Negative) Urine Bilirubin Negative (NEGATIVE) Urine Urobilinogen 1.0 (0.2) E.U./dL Ur Leukocyte Esterase Negative (NEGATIVE) Urine RBC 0-1/hpf (0-5/HPF) Urine WBC 0-1/hpf (0-5/HPF) Ur Squamous Epith Cells 1-5 /hpf (0-5/HPF) Urine Bacteria Occasional (0-1) (None) Urine Yeast 1-5/hpf H (None) Ur Culture Indicated? Cult not indicated Urine Dip Bedside Urine Glucose Negative Bedside Urine Bilirubin - Negative Bedside Urine Ketone - Negative Urine Specific [place] 1.015 Bedside Urine Occult Blood - Negative Bedside Urine pH 8.5 Bedside Urine Protein - Negative Bedside Urine Urobilinogen - Negative Bedside Urine Nitrite - Negative Bedside Urine Leukocytes +/- 15 Esterase Point of care testing: Urine Dip Bedside Urine Glucose Negative Bedside Urine Bilirubin - Negative Bedside Urine Ketone - Negative Urine Specific [place] 1.015 Bedside Urine Occult Blood - Negative Bedside Urine pH 8.5 Bedside Urine Protein - Negative Bedside Urine Urobilinogen - Negative Bedside Urine Nitrite - Negative Bedside Urine Leukocytes +/- 15 Esterase MDM Narrative Medical decision making narrative: CC: Dyspnea and weakness Complicating co-morbidities: Metastatic lung cancer to liver bone brain currently with palliative chemotherapy recurrent admits with neutropenic fever. Data collected from: patient, daughter and son-in-law Medical records reviewed: [facility] discharge on October 12, [facility] ER visit on 09/15, [facility] Emergency notes from 09/18- for neutrapenic fever with negative blood cx and improved ANC,, oncology notes from [facility]. On July 07 she was diagnosed with metastatic brain lesions with a necrotic centers and was treated with 10 fractions of whole-brain radiation. Differential considered: Progressive metastatic disease, acute coronary syndrome, severe anemia, infection, pulmonary embolism Exam documented above, pertinent findings include: Lab Test results independently reviewed as above. Pertinent findings: White count of 8.8. Chronic stable anemia at 8.7 and 25.5 platelet count of 311 CBC is unremarkable with the exception of mildly low potassium at 3.1 which looks like it is close to her baseline Troponin is undetectable D-dimer is significantly elevated at 2274 Independently reviewed EKG as above Imaging studies independently reviewed: Chest x-ray does not show any acute findings or obvious congestive heart failure. Radiology notes there is minimal pleural parenchymal disease in the right lower lobe possibly pneumonia. Chest x-ray from September 15 as well as August 08 are reviewed and both of these have similar findings and I suspect that this is her lung cancer rather than infection. Consultations: Treatments: Re-evaluations: Discussion: <Marisol Cavanaugh, DO - Last Filed: 09/25/23 13:32> Lab Data Labs: Lab Results 09/25/23 09/25/23 Range/Units 05:50 08:21 WBC 8.8 (4.5-11.0) X10^3/uL RBC 2.79 L (4.0-5.2) X10^6/uL Hgb 8.7 L (12.0-16.0) g/dL Hct 25.5 L (36-46) % MCV 91.7 (80-100) fL MCH 31.4 (26-34) PG MCHC 34.2 (30-36) % RDW 17.0 H (11.6-14.8) % Plt Count 311 (150-400) X10^3/uL Neut % (Auto) Not Reportable Lymph % (Auto) Not Reportable [place] % (Auto) Not Reportable Eos % (Auto) Not Reportable Baso % (Auto) Not Reportable Lymph # (Auto) Not Reportable [place] # (Auto) Not Reportable Baso # (Auto) Not Reportable Total Counted 100 Seg Neutrophils % 62.0 (38-70) % Band Neutrophils % 8.0 H (3-7) % Lymphocytes % (Manual) 13.0 L (25-45) % Monocytes % (Manual) 11.0 (2-11) % Metamyelocytes % 4.0 H (-0) % Myelocytes % 2.0 H (-0) % Neutrophils # (Manual) 6160 H (1781-0150) /uL Nucleated RBCs 1 H ( - 0) #/Diff RBC Morphology See below Anisocytosis 1+ H D-Dimer 2274 H (<500) ng/ml Sodium 136 L (137-145) mmol/L Potassium 3.1 L (3.4-5.1) mmol/L Chloride 103 (98-107) mmol/L Carbon Dioxide 28 (22-32) mmol/L BUN 3 L (7-17) mg/dL Creatinine 0.40 L (0.52-1.04) mg/dL Estimated GFR > 60 (>60) mL/min BUN/Creatinine Ratio 7.5 (6-22) Glucose 94 (80-110) mg/dL Lactate 0.9 (0.7-2.1) mmol/L Calcium 9.8 (8.4-10.2) mg/dL Total Bilirubin 0.4 (0.2-1.3) mg/dL AST 32 (14-36) IU/L ALT 13 (<35) IU/L Alkaline Phosphatase 91 (38-126) U/L Troponin I < 0.012 (0.01-0.034) ng/mL Total Protein 5.4 L (6.3-8.2) g/dL Albumin 2.9 L (3.5-5.0) g/dL Globulin 2.5 (1.7-4.1) g/dL Albumin/Globulin Ratio 1.2 (1.0-2.8) Urine Color Yellow Urine Appearance Clear Urine pH 7.0 (4.5-8.0) Ur Specific [place] 1.010 (1.000-1.035) Urine Protein Negative (Negative) Urine Glucose (UA) Negative (Negative) g/dL Urine Ketones Negative (NEGATIVE) Urine Occult Blood Negative (Negative) Urine Nitrate Negative (Negative) Urine Bilirubin Negative (NEGATIVE) Urine Urobilinogen 1.0 (0.2) E.U./dL Ur Leukocyte Esterase Negative (NEGATIVE) Urine RBC 0-1/hpf (0-5/HPF) Urine WBC 0-1/hpf (0-5/HPF) Ur Squamous Epith Cells 1-5 /hpf (0-5/HPF) Urine Bacteria Occasional (0-1) (None) Urine Yeast 1-5/hpf H (None) Ur Culture Indicated? Cult not indicated Urine Dip Bedside Urine Glucose Negative Bedside Urine Bilirubin - Negative Bedside Urine Ketone - Negative Urine Specific [place] 1.015 Bedside Urine Occult Blood - Negative Bedside Urine pH 8.5 Bedside Urine Protein - Negative Bedside Urine Urobilinogen - Negative Bedside Urine Nitrite - Negative Bedside Urine Leukocytes +/- 15 Esterase Point of care testing: Urine Dip Bedside Urine Glucose Negative Bedside Urine Bilirubin - Negative Bedside Urine Ketone - Negative Urine Specific [place] 1.015 Bedside Urine Occult Blood - Negative Bedside Urine pH 8.5 Bedside Urine Protein - Negative Bedside Urine Urobilinogen - Negative Bedside Urine Nitrite - Negative Bedside Urine Leukocytes +/- 15 Esterase MDM Narrative Medical decision making narrative: CC: Dyspnea and weakness Complicating co-morbidities: Metastatic lung cancer to liver bone brain currently with palliative chemotherapy recurrent admits with neutropenic fever. Data collected from: patient, daughter and son-in-law Medical records reviewed: [facility] discharge on October 12, [facility] ER visit on 09/15, [facility] Emergency notes from 09/18- for neutrapenic fever with negative blood cx and improved ANC,, oncology notes from [facility]. On July 07 she was diagnosed with metastatic brain lesions with a necrotic centers and was treated with 10 fractions of whole-brain radiation. Differential considered: Progressive metastatic disease, acute coronary syndrome, severe anemia, infection, pulmonary embolism Exam documented above, pertinent findings include: Lab Test results independently reviewed as above. Pertinent findings: White count of 8.8. Chronic stable anemia at 8.7 and 25.5 platelet count of 311 CBC is unremarkable with the exception of mildly low potassium at 3.1 which looks like it is close to her baseline Troponin is undetectable D-dimer is significantly elevated at 2274 Independently reviewed EKG as above Imaging studies independently reviewed: Chest x-ray does not show any acute findings or obvious congestive heart failure. Radiology notes there is minimal pleural parenchymal disease in the right lower lobe possibly pneumonia. Chest x-ray from September 15 as well as August 08 are reviewed and both of these have similar findings and I suspect that this is her lung cancer rather than infection. Consultations: Treatments: Re-evaluations: Discussion: Patient signed out to me by Dr. Vallecillo I have seen and evaluated patient myself. She is requiring 2 L of oxygen resting comfortably. CT angio for pulmonary embolism ordered. However auto injector went down CT chest with contrast was ordered there is no obvious large pulmonary emboli. D-dimer is elevated as possible she has a small pulmonary embolism however she does have a pleural effusion which is new from previous studies earlier this. Discussion with son and patient about palliative care and hospice. The goal is to go home with oxygen and talk about options with oncology tomorrow. Respiratory therapy determine that she does qualify for home O2. They were able to set oxygen delivery up for her. Family and patient would like to go home this is very reasonable. They will follow up with Oncology and discuss goals of care tomorrow Discharge Plan Departure Patient Disposition: Home Clinical Impression: Pleural effusion, Lung cancer Instructions: End of Life Care, Pleural Effusion Activity Restrictions/Additional Instructions: *You have been diagnosed with pleural effusion *What to do: At this time I think your oxygen is slightly low due to some fluid on your lungs from cancer. Please talk with Oncology tomorrow about goals of care quality of life and how to make you most comfortable. Wear oxygen 1-2 L at all times may visit end of life [place] for more information *Continue to take medications as directed *Follow up with your primary care provider in 2-3 days or call [phone] Go to oncology at scheduled time *Return to ER if you should have increased shortness of breath chest pain or any new, worsening or concerning symptoms Prescriptions: No Action tramadol 50 mg tablet 50 mg PO BID PRN (Reason: pain) Qty: 60 1RF oxycodone 5 mg tablet 5 mg PO Q6H PRN (Reason: pain) Qty: 7 0RF Rx Instructions: Take as needed for pain. amlodipine 5 mg Tablet 5 mg PO DAILY levothyroxine 100 mcg Tablet 100 mcg PO DAILY acetaminophen 650 mg Tablet Extended Release 650 mg PO Q12H dexamethasone 2 mg Tablet 4 mg PO BID Qty: 55 0RF Rx Instructions: Take 2 tabs twice daily by mouth x 10days, then 2 tablets daily x5 days, then 1 tablet daily x5 days ibuprofen 200 mg tablet 400 mg PO Q8H PRN (Reason: pain) gabapentin 100 mg capsule 100 mg PO BEDTIME PRN (Reason: Pain (Scale Score 4-6)) Patient Comments: Does not take anymore Referrals: Myah Ny ARNP [Primary Care Provider] - Stand Alone Forms: Patient Portal/API ED Sign-out <Mansi Quiros MD - Last Filed: 09/27/23 03:01> Cosign ED Attending Michael Attestation: I was immediately available in the department for consultation throughout this patient's visit. Mansi Quiros MD
--- NOTE | 2023-09-25 05:08 | DI.RAD.S_ITS ---
PROCEDURE: XR CHEST 1V INDICATIONS: dyspnea TECHNIQUE: One view of the chest was acquired. COMPARISON: [facility], CR, XR CHEST 1V, 08/08/2023, 14:07. FINDINGS: Surgical changes and devices: None. Lungs and pleura: Minimal appearance increased opacity within the right base slightly compared to prior exam Mediastinum: Mediastinal contours appear normal. Heart size is normal. Bones and chest wall: No suspicious bony lesions. Overlying soft tissues appear unremarkable. IMPRESSION: Minimal atelectasis/developing pneumonia in the right base. The above findings are concordant with preliminary report. Dictated by: Jenni Jaeger M.D. on 09/25/2023 at 8:40 Approved by: Jenni Jaeger M.D. on 09/25/2023 at 8:41
[2023-09-25] MEDS: LIDOCAINE 1% (PF) 5 ML INJ (05:59)
[2023-09-25 06:16] LABS: D Dimer 2274 ng/ml (<500); Hematocrit 25.5 % (36-46); Hemoglobin 8.7 g/dL (12.0-16.0); Mean Corpuscular HGB Conc 34.2 % (30-36); Mean Corpuscular Hemoglobin 31.4 PG (26-34); Mean Corpuscular Volume 91.7 fL (80-100); Platelet Count 311 X10^3/uL (150-400); Red Blood Cell Count 2.79 X10^6/uL (4.0-5.2); White Blood Cell Count 8.8 X10^3/uL (4.5-11.0)
[2023-09-25 06:20] LABS: Add Manual Diff / Slide Review YES
[2023-09-25 06:21] LABS: Alanine Aminotransferase 13 IU/L (<35); Albumin 2.9 g/dL (3.5-5.0); Albumin Globulin Ratio 1.2 (1.0-2.8); Alkaline Phosphatase 91 U/L (38-126); Aspartate Aminotransferase 32 IU/L (14-36); BUN Creatinine Ratio 7.5 (6-22); Bilirubin Total 0.4 mg/dL (0.2-1.3); Blood Urea Nitrogen 3 mg/dL (7-17); Calcium 9.8 mg/dL (8.4-10.2); Carbon Dioxide 28 mmol/L (22-32); Chloride 103 mmol/L (98-107); Estimated Glomerular Filt Rate > 60 mL/min (>60); Globulin 2.5 g/dL (1.7-4.1); Glucose 94 mg/dL (80-110); HEMOLYSIS < 15 (0-50); Lactate (Lactic Acid) 0.9 mmol/L (0.7-2.1); Potassium 3.1 mmol/L (3.4-5.1); Sodium 136 mmol/L (137-145); Total Protein 5.4 g/dL (6.3-8.2)
[2023-09-25 06:32] LABS: Troponin I < 0.012 ng/mL (0.01-0.034)
[2023-09-25 06:45] LABS: Neutrophils Absolute Manual 6160 /uL (3000-5900); Nucleated Red Blood Cells 1 #/Diff; Total Cells Counted 100
[2023-09-25 06:47] LABS: Anisocytosis 1+
--- NOTE | 2023-09-25 07:41 | DI.CT.S_ITS ---
PROCEDURE: CT CHEST W CON INDICATIONS: hypoxia TECHNIQUE: After the administration of intravenous contrast, 5 mm thick sections acquired from the pulmonary apices to the posterior costophrenic angles. 1 mm axial lung, 5 mm thick coronal and sagittal reformats and 7 mm axial MIP were acquired. For radiation dose reduction, the following was used: automated exposure control, adjustment of mA and/or kV according to patient size. COMPARISON: [facility] [place], with metastatic disease. PET NECK TO MID THIGH, 06/27/2023, 12:50Hepatic lesions most consistent . [facility], CT, CT ABDOMEN PELVIS W CON, 09/15/2023, 20:16. [facility], CT, CT CHEST ABD PEL W CON, 04/26/2023, 12:00. [facility], CT, CT CHEST ABD PEL W CON, 11/03/2022, 12:23. FINDINGS: Image quality: Excellent. Lungs and pleura: Scattered areas nodular like pulmonary opacities are present predominantly in the right lung decreased in size compared to prior exam. Mild right effusion with superimposed opacity. Mediastinum: Heart size is normal. No pericardial effusion. No mediastinal or hilar adenopathy by size criteria. Thoracic aorta and central pulmonary arteries are normal in size. Esophagus is normal in caliber. No hiatal hernia. Bones and chest wall: No suspicious bony lesions. No vertebral body compression fractures. No axillary or supraclavicular adenopathy by size criteria. Thyroid gland is visualized with areas of low attenuation and calcification. Abdomen: Multiple heterogeneously enhancing hepatic masses are identified unchanged compared to prior exam. Left adrenal thickening. . IMPRESSION: Interval development right pleural effusion and superimposed opacity. In addition, additional nodular opacities are present as described above. It is noted that a masslike appearance was present in the right base on 09/15/2023 but not obscured by overlying effusion and consolidation. Findings are concerning for malignancy given hepatic appearance. Unchanged appearance multiple hepatic lesions. Dictated by: Jenni Jaeger M.D. on 09/25/2023 at 8:41 Approved by: Jenni Jaeger M.D. on 09/25/2023 at 8:47
[2023-09-25 08:41] LABS: Appearance Urine UA CLEAR; Bilirubin Urine UA NEGATIVE (NEGATIVE); Color Urine UA YELLOW; Glucose Urine UA NEGATIVE (Negative); Ketones Urine UA NEGATIVE (NEGATIVE); Leukocyte Esterase Urine UA NEGATIVE (NEGATIVE); Nitrite Urine UA NEGATIVE (Negative); Occult Blood Urine UA NEGATIVE (Negative); Protein Urine UA NEGATIVE (Negative)
[2023-09-25 09:21] LABS: Bacteria Urine Occasional (0-1); Culture Indicated Urine Cult Not Indicated; RBC Urine 0-1/HPF (0-5/HPF); Squamous Epithelial Cell Urine 1-5 /HPF (0-5/HPF); WBC Urine 0-1/HPF (0-5/HPF)
== END 2023-09-25 11:22 | disposition home or self-care (01) ==
PROVIDERS: Emergency Medicine; Emergency Provider Emergency Medicine; Family Provider Family Medicine; PCP Nurse Practitioner Family
DX: J90 Pleural effusion, not elsewhere classified (principal); C34.90 Malignant neoplasm of unspecified part of unspecified bronchus or lung; R07.9 Chest pain, unspecified
CPT/HCPCS: 36415; 71045; 71260; 80053; 81001; 81003; 83605; 84484; 85007; 85025; 85379; 87040; 93005; 93010; 99284; Q9967

== ENCOUNTER 2023-10-03 14:19 | Inpatient (IN) | payer MEDICARE, OTHER, SELFPAY ==
[2023-10-03] VITALS (13 sets, daily range): BP systolic 107–183; BP diastolic 60–79; PULSE 67–85; RESP 17–19; TEMP 36.5–37.1; O2SAT 95–98; BMI 28.3
--- NOTE | 2023-10-03 14:49 | DI.RAD.S_ITS ---
PROCEDURE: XR CHEST 1V INDICATIONS: suspected sepsis TECHNIQUE: One view of the chest was acquired. COMPARISON: [facility], CR, XR CHEST 1V, 09/25/2023, 5:13. FINDINGS: Surgical changes and devices: None. Lungs and pleura: Lungs are clear. No pleural effusions or pneumothorax. Mediastinum: Mediastinal contours appear normal. Heart size is normal. Bones and chest wall: No suspicious bony lesions. Overlying soft tissues appear unremarkable. IMPRESSION: No acute cardiopulmonary abnormality is seen. Dictated by: Kaylynn Nelson M.D. on 10/03/2023 at 16:26 Approved by: Kaylynn Nelson M.D. on 10/03/2023 at 16:26
--- NOTE | 2023-10-03 15:25 | ED_ITS ---
HPI - Altered Mental Status General Chief Complaint: Altered Mental Status Stated Complaint: breathing problems lethargic Time Seen by Provider: 10/03/23 15:09 Source: family Mode of arrival: Wheelchair History of Present Illness HPI narrative: Patient here with daughter for complaints of generalized malaise somnolence decreased appetite decreased urine output. Patient had chemotherapy all last week. Patient seen here 8 days ago for shortness of breath. Since then she is been on 2 L nasal cannula at home continuously. Patient denies any pain. 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 Related Data Home Medications Medication Instructions Recorded Confirmed acetaminophen 650 mg 650 mg PO Q12H 04/13/22 10/03/23 tablet,extended release amlodipine 5 mg tablet 5 mg PO DAILY 04/13/22 10/03/23 levothyroxine 100 mcg tablet 100 mcg PO DAILY 04/13/22 10/03/23 ibuprofen 200 mg tablet 400 mg PO Q8H PRN pain 02/14/23 10/03/23 nystatin 100,000 unit/mL oral 5 ml PO 4XD 10/03/23 10/03/23 suspension olanzapine 5 mg tablet 5 mg PO ONCE PM 10/03/23 10/03/23 ondansetron 8 mg disintegrating 8 mg PO Q8H PRN nausea/vomiting 10/03/23 10/03/23 tablet prochlorperazine maleate 10 mg 10 mg PO Q6H PRN nausea/vomiting 10/03/23 10/03/23 tablet Previous Rx's Medication Instructions Recorded oxycodone 5 mg tablet 5 mg PO Q6H PRN pain #7 tabs 06/07/23 tramadol 50 mg tablet 50 mg PO BID PRN pain #60 tabs 08/15/23 apixaban 5 mg tablet 5 mg PO BID #60 tabs 10/04/23 apixaban 5 mg tablet (Eliquis) 10 mg (2 x 5 mg) PO BID #12 tabs 10/04/23 dexamethasone 1 mg tablet 4 mg (4 x 1 mg) PO BID #60 tabs 10/04/23 Allergies Allergy/AdvReac Type Severity Reaction Status Date / Time No Known Drug Allergies Allergy Verified 08/09/23 10:53 Review of Systems Review of Systems Narrative: GENERAL: negative chills, positive fatigue, malaise, negative fever, sweats. HEENT: negative sinus pain, ear pain, sore throat RESPIRATORY: negative dyspnea, cough CARDIOVASCULAR: negative chest pain, palpitations GASTROINTESTINAL: negative nausea, vomiting, abdominal pain : negative dysuria, frequency, hematuria MUSCULOSKELETAL: negative muscle or bony pain SKIN: negative rash, skin lesions NEUROLOGIC: negative weakness, numbness, positive somnolence positive confusion ROS Unobtainable: All systems reviewed & are unremarkable except as noted in HPI and below Patient History Medical History Low back pain Cervical radiculopathy Cervicalgia Lumbar spondylosis Paresthesia and pain of both upper extremities Knee pain Atherosclerosis of coronary artery Lumbar radiculopathy Anxiety ROHAN (obstructive sleep apnea) Spondylolisthesis Hyperlipidemia Hyperparathyroidism Shoulder pain, bilateral Nicotine abuse Ulnar nerve entrapment Lymphadenopathy Poor balance Hyperglycemia Paresthesia of foot, bilateral Peripheral neuralgia Serum calcium elevated Elevated coronary artery calcium score HTN (hypertension) Sleep apnea Arthritis Malaise and fatigue Smoker Shortness of breath Small cell lung cancer Surgical History H/O carpal tunnel repair (~2002) History of appendectomy (1959) History of bunionectomy (~1997) History of endoscopy History of removal of Port-a-Cath (10/28/22) Hx of eye surgery (~2010) Total knee replacement status Social History household members: family and children Smoking Status: Current every day smoker alcohol intake: former Smoking Status: Current every day smoker alcohol intake frequency: 0-2 drinks per day Substance Use Type: does not use Exam Narrative Exam Narrative: GENERAL: in no distress, not toxic not dyspneic HEAD: Normocephalic. EYES: Pupils equal round ENT: Mucous membranes moist. NECK: Trachea midline. CARDIOVASCULAR: Regular rate and rhythm RESPIRATORY: Clear to auscultation. Breath sounds equal bilaterally. No wheezes, rales, or rhonchi. GASTROINTESTINAL: Abdomen soft, non-tender EXTREMITIES: No gross deformities. BACK: No flank tenderness. NEURO: Patient awake alert oriented x3. Clear speech. Alert oriented to self date of her name her daughter but not the month. But she is oriented to the year. SKIN: Warm and dry PSYCH: Not anxious, is cooperative Initial Vital Signs Initial Vital Signs: Vital Signs Temperature 98.8 F 10/03/23 14:44 Pulse Rate 77 10/03/23 14:44 Respiratory Rate 17 10/03/23 14:44 Blood Pressure 107/61 10/03/23 14:44 Pulse Oximetry 97 10/03/23 14:44 Oxygen Delivery Method Nasal Cannula 10/03/23 14:44 Oxygen Flow Rate 2 10/03/23 14:44 Course Orders Ordered: Discontinued Medications Acetaminophen (Acetaminophen 325 Mg Tablet) 650 mg PO Q6H PRN PRN Reason: Fever/Mild Pain (1-3) Last Admin: 10/04/23 13:28 Dose: 650 mg Documented By: NESSA Apixaban (Apixaban 5 Mg Tablet) 10 mg PO BID [facility] Stop: 10/09/23 21:01 Last Admin: 10/04/23 08:30 Dose: 10 mg Documented By: Admin: 10/03/23 21:48 Dose: Not Given Documented By: Admin: 10/03/23 20:16 Dose: 10 mg Documented By: LA Dexamethasone (Dexamethasone 1 Mg Tablet) 4 mg PO BID [facility] Last Admin: 10/04/23 08:29 Dose: 4 mg Documented By: Admin: 10/03/23 20:16 Dose: 4 mg Documented By: LA Docusate Sodium (Docusate 100 Mg Capsule) 100 mg PO BID [facility] Last Admin: 10/04/23 08:30 Dose: 100 mg Documented By: NESSA Sodium Chloride (Normal Saline 0.9%) 1,000 mls @ 1,000 mls/hr IV BOLUS ONE Stop: 10/03/23 15:47 Last Infusion: 10/03/23 17:40 Dose: Infused Documented By: Admin: 10/03/23 15:28 Dose: 1,000 mls/hr Documented By: SHAQ Sodium Chloride (Normal Saline 0.9%) 1,000 mls @ 1,000 mls/hr IV BOLUS ONE Stop: 10/03/23 16:23 Last Admin: 10/03/23 17:41 Dose: Not Given Documented By: JEFF Levothyroxine Sodium (Levothyroxine 100 Mcg Tablet) 100 mcg PO DAILY@0600 [facility] Last Admin: 10/04/23 05:25 Dose: 100 mcg Documented By: LA Lidocaine HCl (Lidocaine 1% (Pf) 5 Ml) 5 ml INJ NOW ONE Stop: 10/03/23 15:29 Last Admin: 10/03/23 15:30 Dose: 5 ml Documented By: SHAQ Morphine Sulfate (Morphine 2 Mg/Ml Inj) 2 mg IV Q4HR PRN PRN Reason: Pain, Moderate (4-6) Naloxone HCl (Naloxone 0.4 Mg/Ml Vial) 0.2 mg IV Q2MIN PRN PRN Reason: Opiate Reversal Olanzapine (Olanzapine 2.5 Mg Tablet) 5 mg PO BEDTIME [facility] Ondansetron HCl (Ondansetron 4 Mg/2 Ml Inj) 4 mg IV NOW PRN PRN Reason: Nausea And Vomiting Ondansetron HCl (Ondansetron 4 Mg Odt) 4 mg SL NOW PRN PRN Reason: Nausea And Vomiting Oxycodone HCl (Oxycodone Ir 5 Mg Tablet) 5 mg PO Q3H PRN PRN Reason: Pain, Moderate (4-6) Last Admin: 10/04/23 13:28 Dose: 5 mg Documented By: Admin: 10/04/23 08:30 Dose: 5 mg Documented By: Admin: 10/04/23 03:54 Dose: 5 mg Documented By: Admin: 10/03/23 20:17 Dose: 5 mg Documented By: LA Polyethylene Glycol (Polyethylene Glycol 3350 17 Gm Powd.Pack) 17 gm PO DAILY [facility] Last Admin: 10/04/23 08:30 Dose: 17 gm Documented By: NESSA Vital Signs Vital signs: Vital Signs - 8 hr 10/03/23 14:44 10/03/23 15:33 10/03/23 15:34 Temperature 98.8 F Pulse Rate 77 75 Respiratory Rate 17 Blood Pressure 107/61 116/72 Pulse Oximetry 97 97 Oxygen Delivery Method Nasal Cannula Oxygen Flow Rate 2 10/03/23 16:00 10/03/23 16:00 10/03/23 16:24 Temperature Pulse Rate 77 Respiratory Rate Blood Pressure 128/77 183/79 H Pulse Oximetry 98 Oxygen Delivery Method Oxygen Flow Rate 10/03/23 16:24 10/03/23 16:30 10/03/23 16:31 Temperature Pulse Rate 77 85 77 Respiratory Rate Blood Pressure Pulse Oximetry 97 98 98 Oxygen Delivery Method Oxygen Flow Rate 10/03/23 16:31 Temperature Pulse Rate Respiratory Rate Blood Pressure 128/60 Pulse Oximetry Oxygen Delivery Method Oxygen Flow Rate MDM - Altered Mental Status Lab Data 10/04/23 05:41 11/21/23 05:41 Labs: Lab Results 10/03/23 10/03/23 Range/Units 15:30 17:00 WBC 5.4 (4.5-11.0) X10^3/uL RBC 2.43 L (4.0-5.2) X10^6/uL Hgb 7.6 L (12.0-16.0) g/dL Hct 22.6 L (36-46) % MCV 93.0 (80-100) fL MCH 31.1 (26-34) PG MCHC 33.5 (30-36) % RDW 16.6 H (11.6-14.8) % Plt Count 76 L (150-400) X10^3/uL Neut % (Auto) 88.1 H (50-75) % Lymph % (Auto) 9.6 L (25-40) % [place] % (Auto) 1.0 L (3-14) % Eos % (Auto) 0.2 L (2-4) % Baso % (Auto) 1.1 (0-2) % Neut # (Auto) 4700 (9200-7343) /uL Lymph # (Auto) 500 L (9674-9456) /uL [place] # (Auto) 100 (0-900) /uL Eos # (Auto) 0 (0-450) /uL Baso # (Auto) 100 (0-100) /uL PT 14.4 H (10.1-12.7) SECONDS INR 1.3 (0.9-1.3) APTT 27 (26-36) SECONDS Sodium 134 L (137-145) mmol/L Potassium 3.5 (3.4-5.1) mmol/L Chloride 101 (98-107) mmol/L Carbon Dioxide 30 (22-32) mmol/L BUN 18 H (7-17) mg/dL Creatinine 0.48 L (0.52-1.04) mg/dL Estimated GFR > 60 (>60) mL/min BUN/Creatinine Ratio 37.5 H (6-22) Glucose 94 (80-110) mg/dL Lactate 0.7 (0.7-2.1) mmol/L Calcium 10.5 H (8.4-10.2) mg/dL Total Bilirubin 0.6 (0.2-1.3) mg/dL AST 18 (14-36) IU/L ALT 12 (<35) IU/L Alkaline Phosphatase 73 (38-126) U/L Total Creatine Kinase < 20 L (30-135) U/L Troponin I < 0.012 (0.01-0.034) ng/mL Total Protein 5.9 L (6.3-8.2) g/dL Albumin 3.1 L (3.5-5.0) g/dL Globulin 2.8 (1.7-4.1) g/dL Albumin/Globulin Ratio 1.1 (1.0-2.8) Lipase 27 (23-300) U/L Procalcitonin 0.08 (<0.5) ng/mL Chlamy pneumoniae PCR Not detected (Not Detect) Adenovirus (PCR) Not detected (Not Detect) B.parapertussis DNA PCR Not detected (Not Detecte) Coronavirus OC43 (PCR) Not detected (Not Detect) Coronavirus HKU1 (PCR) Not detected (Not Detect) Coronavirus 229E (PCR) Not detected (Not Detect) SARS-CoV-2 (PCR) Not detected (Not Detecte) Coronavirus NL63 (PCR) Not detected (Not Detect) Human Metapneumovir PCR Not detected (Not Detect) Influenza Type A (PCR) Not detected (Not Detect) Influenza Type B (PCR) Not detected (Not Detect) M. pneumoniae (PCR) Not detected (Not Detect) Parainfluenza 1 (PCR) Not detected (Not Detect) Parainfluenza 2 (PCR) Not detected (Not Detect) Parainfluenza 3 (PCR) Not detected (Not Detect) Parainfluenza 4 (PCR) Not detected (Not Detect) RSV (PCR) Not detected (Not Detect) Entero/Rhino (PCR) Not detected (Not Detect) Blood Type A Negative Antibody Screen Negative Crossmatch See Detail Imaging Data Chest x-ray: Radiologist's Impression: [address] [address] XRay Report Signed Patient: Kal Diane MR#: [id number] : 1950 Acct:[id number] Age/Sex: 73 / F Date of Service: 10/03/23 Loc: ED Accession Number: [id number] Procedure: XR chest 1V Ordering Provider: Jostin Velasquez MD PROCEDURE: XR CHEST 1V INDICATIONS: suspected sepsis TECHNIQUE: One view of the chest was acquired. COMPARISON: [facility], CR, XR CHEST 1V, 09/25/2023, 5:13. FINDINGS: Surgical changes and devices: None. Lungs and pleura: Lungs are clear. No pleural effusions or pneumothorax. Mediastinum: Mediastinal contours appear normal. Heart size is normal. Bones and chest wall: No suspicious bony lesions. Overlying soft tissues appear unremarkable. IMPRESSION: No acute cardiopulmonary abnormality is seen. Dictated by: Kaylynn Nelson M.D. on 10/03/2023 at 16:26 Approved by: Kaylynn Nelson M.D. on 10/03/2023 at 16:26 CT scan - head: Radiologist's Impression: [place] [address] CT Scan Report Signed Patient: Kal Diane MR#: [id number] : 1950 Acct:[id number] Age/Sex: 73 / F Date of Service: 10/03/23 Loc: ED Accession Number: [id number] Procedure: CT head/brain wo con Ordering Provider: Jostin Velasquez MD PROCEDURE: CT HEAD/BRAIN WO CON INDICATIONS: Altered mental status TECHNIQUE: Noncontrast 4.5 mm thick angled axial sections acquired from the foramen magnum to the vertex, with coronal and sagittal reformats. For radiation dose reduction, the following was used: automated exposure control, adjustment of mA and/or kV according to patient size. COMPARISON: [facility], CT, CT HEAD/BRAIN WO CON, 08/08/2023, 14:20. FINDINGS: Image quality: Excellent. CSF spaces: Basal cisterns are patent. No extra-axial fluid collections. The ventricles are symmetric in size and shape. Brain: Multiple left cerebella masses are again seen with cystic components. Findings are not significantly changed from prior study. No acute intracranial hemorrhage. There is cerebral volume loss for age, with resultant ventricular and sulcal prominence. There are periventricular and deep white matter chronic small vessel ischemic changes. There is intracranial internal carotid artery atherosclerosis. Skull and face: Calvarium and visualized facial bones appear intact, without suspicious lesions. Sinuses: Visualized sinuses and mastoids are clear. IMPRESSION: 1. No acute intracranial bleed, midline shift or significant mass effect. 2. Stable appearance of the left cerebellar masses better evaluated on prior contrast enhanced brain MRI. Dictated by: Reese Alvarado M.D. on 10/03/2023 at 16:36 Approved by: Reese Alvarado M.D. on 10/03/2023 at 16:38 CT scan - chest: Radiologist's Impression: [address] [address] [address] Scan Report Signed Patient: Kal Diane MR#: [id number] : 1950 Acct:[id number] Age/Sex: 73 / F Date of Service: 10/03/23 Loc: ED Accession Number: [id number] Procedure: CT angio chest PE protocol Ordering Provider: Jostin Velasquez MD PROCEDURE: CT ANGIO CHEST PE PROTOCOL INDICATIONS: Dyspnea TECHNIQUE: After the administration of intravenous contrast, 2 mm thick sections acquired from the pulmonary apices to the posterior costophrenic angles. 3-dimensional maximum intensity projection (MIP) coronal and sagittal reformats were then acquired through the thorax. For radiation dose reduction, the following was used: automated exposure control, adjustment of mA and/or kV according to patient size. COMPARISON: [facility], CT, CT CHEST W CON, 09/25/2023, 7:50. FINDINGS: Image quality: Diagnostic. Pulmonary arteries: Pulmonary arteries are prominent in size. Intraluminal filling defect is seen in distal left main pulmonary artery extending to segmental and subsegmental branches of left upper and lower lobe pulmonary arteries. No gross right-sided pulmonary emboli are seen. Lungs and pleura: There is small right pleural effusion with adjacent atelectasis/small to moderate-sized infiltrates in posterior and medial aspect of right lower extending to right infrahilar region. Patient's known right lower lobe masslike density is obscured by the overlying fluid and consolidated lung. Dependent atelectasis also seen in posterior aspect of right upper lobe and right lower lobe. No suspicious pulmonary nodule is seen. Moderate centrilobular emphysema is again seen and unchanged. No pneumothorax. Central and peripheral airways are patent. Mediastinum: Heart size is normal, without pericardial effusion. No mediastinal or hilar adenopathy. Thoracic aorta is normal in caliber and enhancement. Esophagus is normal in caliber, without hiatal hernia. Bones and chest wall: Left chest wall Port-A-Cath tip is in SVC. No suspicious bony lesions. Ribs and thoracic spine appear intact throughout. No axillary or supraclavicular adenopathy. No thyroid nodules which require sonographic follow up, per consensus guidelines. Abdomen: Extensive liver metastasis is seen better evaluated on previous CT of abdomen and pelvis studies. IMPRESSION: 1. Finding is suggestive of small nonocclusive left-sided pulmonary emboli involving distal main pulmonary artery extending to segmental and subsegmental branches of left upper and lower lobe pulmonary arteries. No signs of right heart strain. 2. Persistent small right pleural effusion with right basilar infiltrate/atelectasis. Previously described right lung base masslike consolidation is obscured by the presence of fluid and atelectasis. Dependent atelectasis also seen in posterior aspect of bilateral lung lang[place]. Moderate centrilobular emphysema. No pneumothorax. 3. Prominent size of main pulmonary artery which may be seen in the case of pulmonary vascular hypertension. No thoracic aortic aneurysm or gross dissection. No gross mediastinal or hilar lymphadenopathy. 4. Extensive liver metastases. Dictated by: Reese Alvarado M.D. on 10/03/2023 at 16:39 Approved by: Reese Alvarado M.D. on 10/03/2023 at 16:54 [facility] Narrative Medical decision making narrative: Patient here with daughter for complaints of generalized malaise somnolence decreased appetite decreased urine output. Patient had chemotherapy all last week. Patient seen here 8 days ago for shortness of breath. Since then she is been on 2 L nasal cannula at home continuously. Patient denies any pain. 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 After history and exam CBC CMP urinalysis viral swab CT head CT chest PE protocol normal saline MDM CC: Confusion Complicating co-morbidities: Metastatic lung cancer Data collected from: Patient and daughter Medical records reviewed: ER visit here 8 days ago Differential considered: Includes but not limited to brain bleed, dehydration, UTI, viral syndrome, stroke Exam documented above, pertinent findings include: Patient awake alert oriented x3. Abdomen is soft nontender Lab Test results independently reviewed as above. Pertinent findings: WBC 5.4 hemoglobin 7.6 it is trending downward hematocrit 22. Six, trending downward platelets 76 trending downward INR 1.3 sodium 134 potassium 3.5 BUN 18 creatinine 0.48 troponin less than 0.012 viral panel negative Independently reviewed EKG sinus rhythm rate [address] elevation depression Imaging studies independently reviewed: CT head no acute changes Chest x-ray no acute process CT chest, positive pulmonary embolism Consultations: 5:25 p.m.. Spoke with hospitalist, Dr. Shultz, he knows patient, he will see patient to evaluate for admission Treatments: Normal saline 1 PRBC Re-evaluations: Reviewed with patient and family results. They do agree for admission. They do agree and understand reason for transfusion and admission. Discussion: Appropriate for admission. Patient will require transfusion as well as treatment for pulmonary embolism. Patient requiring 2 L nasal cannula. Airway protected. Patient is full code Diagnosis: Acute pulmonary embolism/anemia/thrombocytopenia Discharge Plan Departure Patient Disposition: Admitted as Observation Clinical Impression: Thrombocytopenia Pulmonary embolism Qualifiers: Pulmonary embolism type: unspecified Chronicity: acute Acute cor pulmonale presence: without acute cor pulmonale Qualified Code(s): I26.99 - Other pulmonary embolism without acute cor pulmonale Anemia Qualifiers: Anemia type: unspecified type Qualified Code(s): D64.9 - Anemia, unspecified Admit Date/Time: 10/03/23 17:40 Admit Provider: Rasheed Shultz
[2023-10-03] MEDS: SODIUM CHLORIDE 0.9% 1,000 ML 1000 ML IV (15:28)
[2023-10-03] MEDS: LIDOCAINE 1% (PF) 5 ML INJ (15:30)
[2023-10-03 15:44] LABS: INR 1.3 (0.9-1.3); Prothrombin Time 14.4 SECONDS (10.1-12.7)
[2023-10-03 15:47] LABS: PTT Partial Thromboplastin Tim 27 SECONDS (26-36)
[2023-10-03 15:51] LABS: Add Manual Diff / Slide Review NO; Basophils Absolute Auto 100 /uL (0-100); Basophils Percent Auto 1.1 % (0-2); Eosinophils Absolute Auto 0 /uL (0-450); Eosinophils Percent Auto 0.2 % (2-4); Hematocrit 22.6 % (36-46); Hemoglobin 7.6 g/dL (12.0-16.0); Lymphocytes Absolute Auto 500 /uL (1100-4500); Lymphocytes Percent Auto 9.6 % (25-40); Mean Corpuscular HGB Conc 33.5 % (30-36); Mean Corpuscular Hemoglobin 31.1 PG (26-34); Monocytes Absolute Auto 100 /uL (0-900); Neutrophils Absolute Auto 4700 /uL (1500-7000); Neutrophils Percent Auto 88.1 % (50-75); Platelet Count 76 X10^3/uL (150-400); Red Blood Cell Count 2.43 X10^6/uL (4.0-5.2); Red Cell Distribution Width 16.6 % (11.6-14.8); White Blood Cell Count 5.4 X10^3/uL (4.5-11.0)
[2023-10-03 15:53] LABS: Lactate (Lactic Acid) 0.7 mmol/L (0.7-2.1)
[2023-10-03 15:54] LABS: Alanine Aminotransferase 12 IU/L (<35); Albumin 3.1 g/dL (3.5-5.0); Albumin Globulin Ratio 1.1 (1.0-2.8); Alkaline Phosphatase 73 U/L (38-126); Aspartate Aminotransferase 18 IU/L (14-36); BUN Creatinine Ratio 37.5 (6-22); Bilirubin Total 0.6 mg/dL (0.2-1.3); Blood Urea Nitrogen 18 mg/dL (7-17); Calcium 10.5 mg/dL (8.4-10.2); Carbon Dioxide 30 mmol/L (22-32); Chloride 101 mmol/L (98-107); Creatine Kinase < 20 U/L (30-135); Estimated Glomerular Filt Rate > 60 mL/min (>60); Globulin 2.8 g/dL (1.7-4.1); Glucose 94 mg/dL (80-110); HEMOLYSIS < 15 (0-50); Lipase 27 U/L (23-300); Potassium 3.5 mmol/L (3.4-5.1); Sodium 134 mmol/L (137-145); Total Protein 5.9 g/dL (6.3-8.2)
[2023-10-03 16:05] LABS: Troponin I < 0.012 ng/mL (0.01-0.034)
[2023-10-03 16:10] LABS: Procalcitonin 0.08 ng/mL (<0.5)
[2023-10-03 16:26] LABS: Adenovirus Not Detected (Not Detect); B. parapertussis Not Detected (Not Detecte); Bordetella pertussis Not Detected (Not Detect); Chlamydophila pneumoniae Not Detected (Not Detect); Coronavirus 229E Not Detected (Not Detect); Coronavirus HKU1 Not Detected (Not Detect); Coronavirus NL 63 Not Detected (Not Detect); Coronavirus OC43 Not Detected (Not Detect); Human Metapneumovirus Not Detected (Not Detect); Human Rhinovirus/Enterovirus Not Detected (Not Detect); Influenza A Not Detected (Not Detect); Influenza B Not Detected (Not Detect); Mycoplasma pneumoniae Not Detected (Not Detect); Parainfluenza Virus 1 Not Detected (Not Detect); Parainfluenza Virus 2 Not Detected (Not Detect); Parainfluenza Virus 3 Not Detected (Not Detect); Parainfluenza Virus 4 Not Detected (Not Detect); Respiratory Syncytial Virus Not Detected (Not Detect); SARS- CoV-2 Not Detected (Not Detecte)
--- NOTE | 2023-10-03 18:03 | CM.SWNOTE ---
Initial DCP Assessment Patient is 73 y/o female who presents to ED with family due to concern for SOB and lethargy. It is reported that patient had 3 rounds of Chemotherapy last week through Oncologist Dr. Ortega at [facility]. Patient had previous admission to late July and patient d/c'd with infusions, IV antibiotcs and [facility] referral. Patient has dx of small cell Lung cancer and it has metastasized to brain, liver and lower abdomen. Patient's PCP is YESENIA Guzman with [facility], patient has Medicare, [employer] insurance and [employer] life insurance. POLST and Advance Directive is available in EMR. Patient's DPOA is daughter Tia, patient is DNR/DNI. Per ED provider patient is accepted by hospitalist Dr. Shultz due to concern for PE, Anemia and Thromboyctopenia. Dr. Shultz meets with patient, DPOA daughter and other daughter regarding goals of care. Dr. Shultz reports he spoke with Oncologist Dr. Ortega prior to conversation and he recommended hospice for patient. Per Dr. Shultz, both patient and family were agreeable to hospice referral upon d/c. Patient to be admitted for blood transfusion and comfort measures. BATCH UNIT TREATER enters room to meet with patient and family. It is reported that patient resides with 8 family members in [place]. Tia (daughter/DPOA) is primary caregiver and assists with all ADLs, patient is able to eat independently. Patient relies on family for transportation, it is reported that patient primarily is in bed at home. Patient uses 2 liters of O2 at home. BATCH UNIT TREATER provides daughter with [facility] brochure, submits Hospice referral in [facility] and calls [facility] regarding new referral. BATCH UNIT TREATER explains that patient will be admitted for blood transfusion and likely to d/c tomorrow. Deja with [facility] endorses they may not have an admission opening until Tuesday. BATCH UNIT TREATER provides DCP care management contact information for further coordination of care. Hospice referral not faxed yet due to patient's admission and further treatment in acute care. Plan: Patient admitted to acute care, DCP to f/u with Hospice referral with [facility], f/u with family regarding POC. Jennifer Terrell HALL CLERK Discharge Planning/Care Management CM Discharge Assessment Start: 10/03/23 17:54 Freq: Status: Active Protocol: Document 10/03/23 17:54 LN (Rec: 10/03/23 18:03 LN [id number]) Discharge Planning Assessment Advance Directives? Yes: Advance Directive Advance Directives on File Yes History Provided By Patient,Family Member,Medical Record Has Patient been admitted in last 30 No days? Comment Patient was admitted from 08/08-08/12/23 Prior Living Arrangements House Household Members family,children Type of transporation used prior to Relies on Others admit Independent with ADL's No Is patient alert and oriented? Yes Needs Assistance With Bathing,Grooming,Meal Prep, Toileting,Managing Medications ,Home Chores / Shopping Caregiver for Another No Community Services used prior to Oxygen Therapy,IV Therapy admission: DME Already Rented / Owned Bath Bench,FWW / Walker,Oxygen ,Bedside Commode Comment Lift bed at home Additional Comment Dr. Ortega spoke with Hospitalist Dr. Shultz and Hospice is recommended. BATCH UNIT TREATER submits order for Hospice referral and calls [facility] regarding referral. Review Status In Process Please Provide Date Initial DC 10/03/23 Assessment Was Performed Document 10/03/23 18:12 LN (Rec: 10/03/23 18:13 LN [id number]) Discharge Planning Assessment Assigned Equine Science Instructor FANNIE Rodriguez/Assigned Designee Name Elle Duvall (daughter) Contact Information [phone] Advance Directives? Yes: Advance Directive Advance Directives on File Yes History Provided By Patient,Family Member,Medical Record Has Patient been admitted in last 30 No days? Comment Patient was admitted from 08/08-08/12/23 Prior Living Arrangements House Household Members family,children Type of transporation used prior to Relies on Others admit Independent with ADL's No Is patient alert and oriented? Yes Needs Assistance With Bathing,Grooming,Meal Prep, Toileting,Managing Medications ,Home Chores / Shopping Caregiver for Another No Community Services used prior to Oxygen Therapy,IV Therapy admission: DME Already Rented / Owned Bath Bench,FWW / Walker,Oxygen ,Bedside Commode Comment Lift bed at home Discharge Plan Home Transportation Arrangement family in POV Additional Comment Dr. Ortega spoke with Hospitalist Dr. Shultz and Hospice is recommended. BATCH UNIT TREATER submits order for Hospice referral and calls [facility] regarding referral. Review Status In Process Please Provide Date Initial DC 10/03/23 Assessment Was Performed
--- NOTE | 2023-10-03 18:40 | PM.HP.1 ---
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 Found in ED to have PE. Dr. Monroe oncology recommended hospice given patient has very poor prognosis. A 17 minutes discussion about GOC was had with patient and daughter give her chemo is no longer working and continues to require her to come to the hospital. She agreed with hospice referral. Will give 1 unit of blood and start on eliquis given PE's. Patient denies CP, abd pain, NV, or diarrhea. [facility] Medical History Low back pain Cervical radiculopathy Cervicalgia Lumbar spondylosis Paresthesia and pain of both upper extremities Knee pain Atherosclerosis of coronary artery Lumbar radiculopathy Anxiety ROHAN (obstructive sleep apnea) Spondylolisthesis Hyperlipidemia Hyperparathyroidism Shoulder pain, bilateral Nicotine abuse Ulnar nerve entrapment Lymphadenopathy Poor balance Hyperglycemia Paresthesia of foot, bilateral Peripheral neuralgia Serum calcium elevated Elevated coronary artery calcium score HTN (hypertension) Sleep apnea Arthritis Malaise and fatigue Smoker Shortness of breath Small cell lung cancer Surgical History H/O carpal tunnel repair (~2002) History of appendectomy (1959) History of bunionectomy (~1997) History of endoscopy History of removal of Port-a-Cath (10/28/22) Hx of eye surgery (~2010) Total knee replacement status Social History household members: family and children Smoking Status: Current every day smoker alcohol intake: former Meds Home Medications and Allergies Home Medications Medication Instructions Recorded Confirmed Type acetaminophen 650 mg 650 mg PO Q12H 04/13/22 08/09/23 History tablet,extended release amlodipine 5 mg tablet 5 mg PO DAILY 04/13/22 08/09/23 History levothyroxine 100 mcg tablet 100 mcg PO DAILY 04/13/22 08/09/23 History ibuprofen 200 mg tablet 400 mg PO Q8H PRN pain 02/14/23 08/09/23 History oxycodone 5 mg tablet 5 mg PO Q6H PRN pain #7 tabs 06/07/23 08/09/23 Rx dexamethasone 2 mg tablet 4 mg (2 x 2 mg) PO BID #55 tabs 06/08/23 08/09/23 Rx gabapentin 100 mg capsule 100 mg PO BEDTIME PRN Pain (Scale 07/05/23 08/09/23 History Score 4-6) tramadol 50 mg tablet 50 mg PO BID PRN pain #60 tabs 08/15/23 Rx Allergies Allergy/AdvReac Type Severity Reaction Status Date / Time No Known Drug Allergies Allergy Verified 08/09/23 10:53 Review of Systems Review of Systems Narrative: All other systems reviewed with the patient and are negative unless otherwise stated. Exam Vital Signs (past 8 hours): - 10/03/23 14:44 10/03/23 15:33 10/03/23 15:34 Temperature 98.8 F Pulse Rate 77 75 Respiratory Rate 17 Blood Pressure 107/61 116/72 Pulse Oximetry 97 97 Oxygen Delivery Method Nasal Cannula Oxygen Flow Rate 2 10/03/23 16:00 10/03/23 16:00 10/03/23 16:24 Temperature Pulse Rate 77 Respiratory Rate Blood Pressure 128/77 183/79 H Pulse Oximetry 98 Oxygen Delivery Method Oxygen Flow Rate 10/03/23 16:24 10/03/23 16:30 10/03/23 16:31 Temperature Pulse Rate 77 85 77 Respiratory Rate Blood Pressure Pulse Oximetry 97 98 98 Oxygen Delivery Method Oxygen Flow Rate 10/03/23 16:31 10/03/23 17:00 Temperature Pulse Rate 79 Respiratory Rate Blood Pressure 128/60 Pulse Oximetry 96 Oxygen Delivery Method Oxygen Flow Rate Oxygen Delivery Method Nasal Cannula Oxygen Flow Rate 2 Narrative Exam Narrative: GEN: no acute distress, appears older than stated age, pale HEENT: dry mucous membranes, PERRL NECK: trachea midline, no JVD CV: regular rate and rhythm, no murmurs PULM: Coarse breath sounds bilateral ABD: soft, nontender, nondistended, no organomegaly EXT: warm and well perfused with no edema NEURO: awake, alert, oriented, no focal deficits Objective Labs 10/03/23 15:30 10/03/23 15:30 Labs: Laboratory Results - last 24 hr 10/03/23 10/03/23 15:30 17:00 WBC 5.4 RBC 2.43 L Hgb 7.6 L Hct 22.6 L MCV 93.0 MCH 31.1 MCHC 33.5 RDW 16.6 H Plt Count 76 L Neut % (Auto) 88.1 H Lymph % (Auto) 9.6 L [place] % (Auto) 1.0 L Eos % (Auto) 0.2 L Baso % (Auto) 1.1 Neut # (Auto) 4700 Lymph # (Auto) 500 L [place] # (Auto) 100 Eos # (Auto) 0 Baso # (Auto) 100 PT 14.4 H INR 1.3 APTT 27 Sodium 134 L Potassium 3.5 Chloride 101 Carbon Dioxide 30 BUN 18 H Creatinine 0.48 L Estimated GFR > 60 BUN/Creatinine Ratio 37.5 H Glucose 94 Lactate 0.7 Calcium 10.5 H Total Bilirubin 0.6 AST 18 ALT 12 Alkaline Phosphatase 73 Total Creatine Kinase < 20 L Troponin I < 0.012 Total Protein 5.9 L Albumin 3.1 L Globulin 2.8 Albumin/Globulin Ratio 1.1 Lipase 27 Procalcitonin 0.08 Chlamy pneumoniae PCR Not detected Adenovirus (PCR) Not detected B.parapertussis DNA PCR Not detected Coronavirus OC43 (PCR) Not detected Coronavirus HKU1 (PCR) Not detected Coronavirus 229E (PCR) Not detected SARS-CoV-2 (PCR) Not detected Coronavirus NL63 (PCR) Not detected Human Metapneumovir PCR Not detected Influenza Type A (PCR) Not detected Influenza Type B (PCR) Not detected M. pneumoniae (PCR) Not detected Parainfluenza 1 (PCR) Not detected Parainfluenza 2 (PCR) Not detected Parainfluenza 3 (PCR) Not detected Parainfluenza 4 (PCR) Not detected RSV (PCR) Not detected Entero/Rhino (PCR) Not detected Blood Type A Negative Antibody Screen Negative Crossmatch See Detail Assessment & Plan Assessment & Plan narrative: # metastatic lung cancer to brain -patient ok with hospice after discussion with her and daughter and Dr. 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 Ortega ok with DOAC since platelets >50k # acute anemia -Hgb 7.6 -1 unit PRBC ordered # HTN -holding BP meds as normotensive # hypothyroidism -continue synthroid Code status is DNR. DVT prophylaxis with Eliquis. Proxy is daughter. I have reviewed home meds and used all available resources to reconcile the home meds. Case discussed with ED physician/APC and patient will be admitted to the hospitalist service for further workup and management. This patient will be admitted as observation and will require less than2 midnights of hospital time to treat PE and anemia.
[2023-10-03] MEDS: dexAMETHasone 1 MG TABLET 4 MG PO (20:16)
[2023-10-03] MEDS: APIXABAN 5 MG TABLET 10 MG PO (20:16)
[2023-10-03] MEDS: OXYCODONE IR 5 MG TABLET PO (20:17)
[2023-10-04] MEDS: OXYCODONE IR 5 MG TABLET PO ×3 (03:54→13:28)
[2023-10-04 05:24] VITALS: BP 123/70; PULSE 68; RESP 16; TEMP 36.6; O2SAT 97
[2023-10-04] MEDS: LEVOTHYROXINE 100 MCG TABLET PO (05:25)
[2023-10-04 05:59] LABS: Add Manual Diff / Slide Review NO; Basophils Absolute Auto 0 /uL (0-100); Basophils Percent Auto 0.7 % (0-2); Eosinophils Absolute Auto 0 /uL (0-450); Hematocrit 25.6 % (36-46); Hemoglobin 8.7 g/dL (12.0-16.0); Lymphocytes Absolute Auto 300 /uL (1100-4500); Lymphocytes Percent Auto 8.6 % (25-40); Mean Corpuscular Volume 91.3 fL (80-100); Monocytes Absolute Auto 0 /uL (0-900); Monocytes Percent Auto 0.6 % (3-14); Neutrophils Absolute Auto 3200 /uL (1500-7000); Neutrophils Percent Auto 90.1 % (50-75); Platelet Count 60 X10^3/uL (150-400); Red Blood Cell Count 2.81 X10^6/uL (4.0-5.2); Red Cell Distribution Width 16.1 % (11.6-14.8); White Blood Cell Count 3.6 X10^3/uL (4.5-11.0)
[2023-10-04 06:12] LABS: BUN Creatinine Ratio 34.9 (6-22); Blood Urea Nitrogen 15 mg/dL (7-17); Calcium 9.9 mg/dL (8.4-10.2); Carbon Dioxide 28 mmol/L (22-32); Chloride 104 mmol/L (98-107); Estimated Glomerular Filt Rate > 60 mL/min (>60); Glucose 123 mg/dL (80-110); HEMOLYSIS < 15 (0-50); Sodium 134 mmol/L (137-145)
[2023-10-04] MEDS: dexAMETHasone 1 MG TABLET 4 MG PO (08:29)
[2023-10-04] MEDS: polyethylene glycoL 3350 17 GM POWD.PACK PO (08:30)
[2023-10-04] MEDS: APIXABAN 5 MG TABLET 10 MG PO (08:30)
[2023-10-04] MEDS: DOCUSATE 100 MG CAPSULE PO (08:30)
[2023-10-04 08:45] VITALS: BP 134/76; PULSE 73; RESP 16; TEMP 36.6; O2SAT 94
[2023-10-04] MEDS: ACETAMINOPHEN 325 MG TABLET 650 MG PO (13:28)
--- NOTE | 2023-10-06 17:09 | PM.DS.1 ---
History of Present Illness History of Present Illness Date Patient Seen: 10/03/23 Time Patient Seen: 18:42 Chief complaint: breathing problems lethargic Narrative: Per admitting physician: Kal Diane is a 73 year old female with a PMH of metastatic lung cancer (to brain) who is currently on palliative chemotherapy who presents with worsening weakness and dyspnea. Found in ED to have PE. Dr. Monroe oncology recommended hospice given patient has very poor prognosis. A 17 minutes discussion about GOC was had with patient and daughter give her chemo is no longer working and continues to require her to come to the hospital. She agreed with hospice referral. Will give 1 unit of blood and start on eliquis given PE's. Patient denies CP, abd pain, NV, or diarrhea. Discharge Providers Provider Date of admission: 10/03/23 17:40 Discharge Date: 10/04/23 Primary care physician: YESENIA Navarrete Consults: 10/03/23 16:[address] [facility] [place] - [employer] Supervisor Stat Comment: 10/03/23 18:01 Consult to Hospice Referral Routine Comment: Discharge provider: Devan Lee MD Summary Hospital Course Discharge Diagnosis: 1. Metastatic lung cancer to brain 2. Acute PE 3. Anemia 4. Hypertension 5. Hypothyroidism Hospital Course: Ms. Diane presented to the hospital with weakness and shortness of breath. She had known metastatic lung cancer to brain. She was found to have a PE. She was started on eliquis. Discussion was had with her oncologist who recommended hospice. She and the family were agreeable and she was discharged home with plan to meet with hospice. Exam Vital Signs (past 8 hours): Oxygen Delivery Method Nasal Cannula Oxygen Flow Rate 0 Narrative Exam Narrative: GEN: chronically ill appearing CV: regular rate and rhythm, no murmurs PULM: coarse breath sounds ABD: soft, nontender, nondistended, no organomegaly Objective Labs 10/04/23 05:41 10/04/23 05:41 [facility] Medical History Low back pain Cervical radiculopathy Cervicalgia Lumbar spondylosis Paresthesia and pain of both upper extremities Knee pain Atherosclerosis of coronary artery Lumbar radiculopathy Anxiety ROHAN (obstructive sleep apnea) Spondylolisthesis Hyperlipidemia Hyperparathyroidism Shoulder pain, bilateral Nicotine abuse Ulnar nerve entrapment Lymphadenopathy Poor balance Hyperglycemia Paresthesia of foot, bilateral Peripheral neuralgia Serum calcium elevated Elevated coronary artery calcium score HTN (hypertension) Sleep apnea Arthritis Malaise and fatigue Smoker Shortness of breath Small cell lung cancer Surgical History H/O carpal tunnel repair (~2002) History of appendectomy (1959) History of bunionectomy (~1997) History of endoscopy History of removal of Port-a-Cath (10/28/22) Hx of eye surgery (~2010) Total knee replacement status Social History household members: family and children Smoking Status: Current every day smoker alcohol intake: former Discharge Plan Discharge Plan Patient Disposition: Hospice - Home Provider Discharge Comment: Ms. Diane was admitted with a pulmonary embolism. She was started on blood thinners. She has metastatic lung cancer. After discussion with family there was interest in joining hospice. She had an appointment with hospice on 10/06. Discharge orders & Medications Prescriptions: New dexamethasone 1 mg Tablet 4 mg PO BID Qty: 60 0RF Eliquis 5 mg Tablet 10 mg PO BID Qty: 12 0RF apixaban 5 mg tablet 5 mg PO BID Qty: 60 0RF Continued tramadol 50 mg tablet 50 mg PO BID PRN (Reason: pain) Qty: 60 1RF oxycodone 5 mg tablet 5 mg PO Q6H PRN (Reason: pain) Qty: 7 0RF Rx Instructions: Take as needed for pain. nystatin 100,000 unit/mL suspension 5 ml PO 4XD olanzapine 5 mg tablet 5 mg PO ONCE PM ondansetron 8 mg tablet,disintegrating 8 mg PO Q8H PRN (Reason: nausea/vomiting) prochlorperazine maleate 10 mg tablet 10 mg PO Q6H PRN (Reason: nausea/vomiting) amlodipine 5 mg Tablet 5 mg PO DAILY levothyroxine 100 mcg Tablet 100 mcg PO DAILY acetaminophen 650 mg Tablet Extended Release 650 mg PO Q12H ibuprofen 200 mg tablet 400 mg PO Q8H PRN (Reason: pain) Follow up/Referrals: Myah Ny ARNP [Primary Care Provider] - Visit Report/Discharge Packet Instructions: DI for Pulmonary Embolism Stand Alone Forms: Patient Portal/API, Stroke Signs & Symptoms Discharge Data Primary Care Provider: Myah Ny VTE Deep Vein Thrombosis/Pulmonary Embolism Present on Admission: Yes
--- NOTE | 2023-10-07 11:49 | CM.DPC ---
DCP Cont. Received call from pt's PCP requesting d/c date and summary. Faxed the d/c summary, per their request.
== END 2023-10-04 14:08 | disposition hospice, home (50) | DRG 180 ==
LOC: ED 17:16 → AC 10-04 06:46
PROVIDERS: Admitting Provider Student in an Organized Health Care Education/Training Program; Emergency Provider Emergency Medicine; Family Provider Family Medicine; PCP Nurse Practitioner Family; Visit Provider Student in an Organized Health Care Education/Training Program
DX: C34.11 Malignant neoplasm of upper lobe, right bronchus or lung (principal); I26.94 Multiple subsegmental thrombotic pulmonary emboli without acute cor pulmonale; C79.31 Secondary malignant neoplasm of brain; D63.0 Anemia in neoplastic disease; I10 Essential (primary) hypertension; E03.9 Hypothyroidism, unspecified; F17.210 Nicotine dependence, cigarettes, uncomplicated; Z66 Do not resuscitate; Z51.5 Encounter for palliative care
CPT/HCPCS: 36415; 36430; 70450; 71045; 71275; 80048; 80053; 82550; 83605; 83690; 84145; 84484; 85025; 85610; 85730; 86850; 86900; 86901; 87040; 87633; 93005; 93010; 99285; P9016; Q9967